=== PATIENT | male | born 1930 | race African-American/Black ===

== ENCOUNTER 2016-07-30 18:10 | Emergency (ER) | payer MEDICARE, OTHER ==
[~2016-07-30] VITALS: Ht 162.6 cm; Wt 60.0 kg
[~2016-07-30 18:10] MED LIST: ALFU10TA30 PO; AMLO-511 PO; ATOR10TA84 PO; FLUT16H NASAL; GABA-531 PO; MEMA10TA11 PO; MULT-1192 PO; PREG25 PO; SITA25 PO; TELM40 PO
[2016-07-30 18:26] LABS: GLUCOSE,POINT OF CARE 112 MG/DL (70-110)
[2016-07-30] MEDS ORDERED: AmLODIPine BESYLATE 5 MG TABLET PO ONE (19:15)
[2016-07-30 19:26] LABS: ANION GAP 8 mmol/L (8-16); CALCIUM, TOTAL 9.1 mg/dL (8.8-10.5); CARBON DIOXIDE 29 mmol/L (22-29); CHLORIDE 104 mmol/L (98-107); CREATININE 1.04 mg/dL (0.60-1.30); GLOMERULAR FILTR. RATE CALC > 60 mL/min (>60); POTASSIUM 3.8 mmol/L (3.5-5.1); SODIUM SERUM 141 mmol/L (136-145); UREA NITROGEN, BLOOD 14 mg/dL (7-18)
[2016-07-30 19:39] LABS: BASOPHILS # (AUTO) 0.01 K/uL (0.00-0.20); BASOPHILS % (AUTO) 0.2 % (0.0-2.0); EOSINOPHILS # (AUTO) 0.07 K/uL (0.00-0.70); EOSINOPHILS % (AUTO) 1.24 % (1.0-6.0); HEMATOCRIT 29.9 % (41-53); HEMOGLOBIN 9.9 g/dL (13.5-17.5); LYMPHOCYTES # (AUTO) 1.3 K/uL (1.0-4.8); LYMPHOCYTES % (AUTO) 23.1 % (22.0-44.0); MEAN CORPUSCULAR HEMOGLOBIN 25.3 pg (26.0-34.0); MEAN CORPUSCULAR HGB CONC 33.2 G/dL (31.0-37.0); MEAN CORPUSCULAR VOLUME 76 fL (80-100); MONOCYTES # (AUTO) 0.5 K/uL (0.1-1.0); MONOCYTES % (AUTO) 8.5 % (2.0-9.0); NEUTROPHILS # (AUTO) 3.7 K/uL (1.8-7.7); PLATELET COUNT (AUTO) 190 K/uL (150-450); RED BLOOD CELL COUNT(AUTO) 3.93 MIL/uL (4.50-5.90); RED CELL DISTRIBUTION WIDTH 14.8 % (11.5-14.5); WHITE BLOOD COUNT (AUTO) 5.6 K/uL (4.5-11.0)
[2016-07-30 20:17] VITALS: BP 178/94
== END 2016-07-30 20:38 | disposition home or self-care (01) ==
LOC: EMS 18:11
DX: I10 Essential (primary) hypertension (principal); E11.9 Type 2 diabetes mellitus without complications; D64.9 Anemia, unspecified
CPT/HCPCS: 82962; 93005; 99285

== ENCOUNTER 2018-01-06 09:49 | Inpatient (IN) | payer MEDICARE, OTHER ==
[~2018-01-06] VITALS: Ht 167.6 cm; Wt 66.0 kg
[2018-01-06] MEDS ORDERED: DONE10TA8 PO (09:56)
[2018-01-06] MEDS ORDERED: BACL10TA PO (09:56)
[2018-01-06] MEDS ORDERED: ATOR10TA84 PO (09:56)
[2018-01-06] MEDS ORDERED: FINA5TAB41 PO (09:56)
[2018-01-06] MEDS ORDERED: TELM40 PO (09:56)
[2018-01-06] MEDS ORDERED: DOCU250C91 PO (09:56)
[2018-01-06] MEDS ORDERED: PANTOPRAZOLE SODIUM 40 MG/VIAL IVP ONE ×2 (10:15→11:15)
[2018-01-06] MEDS ORDERED: PANTOPRAZOLE SODIUM 80 MG in SODIUM CHLORIDE 0.9% 100 ML IV SCH ×2 (10:15→11:15)
[2018-01-06] MEDS ORDERED: INSULIN REGULAR, HUMAN 100 UNITS/ML IVP ONE (10:30)
[2018-01-06 10:37] LABS: EOSINOPHILS % (AUTO) 0 % (1.0-6.0); HEMATOCRIT 30.2 % (41-53); HEMOGLOBIN 9.8 g/dL (13.5-17.5); LYMPHOCYTES # (AUTO) 0.2 K/uL (1.0-4.8); LYMPHOCYTES % (AUTO) 3.1 % (22.0-44.0); MEAN CORPUSCULAR HEMOGLOBIN 24.8 pg (26.0-34.0); MEAN CORPUSCULAR HGB CONC 32.6 G/dL (31.0-37.0); MEAN CORPUSCULAR VOLUME 76 fL (80-100); MONOCYTES # (AUTO) 0.2 K/uL (0.1-1.0); MONOCYTES % (AUTO) 2.3 % (2.0-9.0); NEUTROPHILS # (AUTO) 7.4 K/uL (1.8-7.7); PLATELET COUNT (AUTO) 180 K/uL (150-450); RED BLOOD CELL COUNT(AUTO) 3.96 MIL/uL (4.50-5.90); RED CELL DISTRIBUTION WIDTH 13.7 % (11.5-14.5)
[2018-01-06 10:38] LABS: NEUTROPHILS % (AUTO) 94.6 % (40.0-70.0)
[2018-01-06 10:47] LABS: INR 1.1 (0.9-1.1)
[2018-01-06 10:51] LABS: ANION GAP 12 mmol/L (8-16); CALCIUM, TOTAL 9.3 mg/dL (8.8-10.5); CARBON DIOXIDE 24 mmol/L (22-29); CHLORIDE 109 mmol/L (98-107); GLOMERULAR FILTR. RATE CALC 58 mL/min (>60); GLUCOSE,RANDOM 356 mg/dL (70-110); POTASSIUM 4.3 mmol/L (3.5-5.1); SODIUM SERUM 145 mmol/L (136-145); UREA NITROGEN, BLOOD 33 mg/dL (7-18)
[2018-01-06 10:56] LABS: ALANINE AMINOTRANSFERASE 21 U/L (12-78); ALBUMIN 3.2 g/dL (3.4-5.0); ALKALINE PHOSPHATASE 80 U/L (46-116); ASPARTATE AMINOTRANSFERASE 13 U/L (15-37); BILIRUBIN,TOTAL 0.5 mg/dL (0.1-1.0); LIPASE 319 U/L (73-393); TOTAL PROTEIN, SERUM 6.3 g/dL (6.4-8.2)
[2018-01-06] MEDS ORDERED: DEXTROSE 5%-0.45% SODIUM CHL 1,000 ML IV PRN (11:15)
[2018-01-06] MEDS ORDERED: ONDANSETRON HCL 4 MG/2 ML VIAL IVP PRN ×2 (11:15)
[2018-01-06] MEDS ORDERED: BISACODYL 10 MG RECTAL RECTAL SUPPOSITORY PR PRN (11:15)
[2018-01-06] MEDS ORDERED: ACETAMINOPHEN 325 MG TABLET PO PRN (11:15)
[2018-01-06] MEDS ORDERED: IPRATROPIUM BROMIDE 0.5 MG/2.5 ML NEB SOLUTION NEB PRN (11:15)
[2018-01-06] MEDS ORDERED: CloNIDine HCL 0.1 MG TABLET PO PRN (11:15)
[2018-01-06] MEDS ORDERED: 0.9% SODIUM CHLORIDE 10 ML SYRINGE IVP PRN (11:15)
[2018-01-06] MEDS ORDERED: ALBUTEROL SULFATE 2.5 MG/0.5 ML NEB SOLUTION NEB PRN (11:15)
[2018-01-06] MEDS ORDERED: SODIUM CHLORIDE 0.45% 1,000 ML IV ONE (11:30)
[2018-01-06 13:49] VITALS: BP 146/81
[2018-01-06] MEDS ORDERED: CALC-1220 PO (14:20)
[2018-01-06] MEDS ORDERED: DEXTROSE 50%-WATER 25 GM/50 ML SYRINGE IVP PRN (14:45)
[2018-01-06 16:30] VITALS: BP 154/84
[2018-01-06 19:19] VITALS: BP 114/73
[2018-01-06] MEDS: PANTOPRAZOLE SODIUM 80 MG in SODIUM CHLORIDE 0.9% 100 ML IV SCH (20:35)
[2018-01-06 20:56] LABS: APPEARANCE,URINE CLEAR (CLEAR); BILIRUBIN,URINE NEGATIVE (NEGATIVE); GLUCOSE, URINE (UA) >=1000 mg/dL (NEGATIVE); KETONES,URINE NEGATIVE (NEGATIVE); LEUKOCYTE ESTERASE ,URINE NEGATIVE (NEGATIVE); NITRATE,URINE NEGATIVE (NEGATIVE); OCCULT BLOOD,URINE NEGATIVE (NEGATIVE); PROTEIN,URINE NEGATIVE (NEGATIVE); UROBILINOGEN,URINE 0.2 mg/dL (<=1.0)
[2018-01-06 21:29] LABS: BACTERIA,URINE None Seen /HPF (None Seen); RBC,URINE 0-2 /HPF (0-2); SQUAMOUS EPITHELIAL CELL,UR Few /LPF (None Seen); WBC,URINE None Seen /HPF (0-5)
[2018-01-06 23:18] VITALS: BP 131/67
[2018-01-07 00:49] LABS: GLUCOMETER DEV NAME(LOC) 5S 1M; GLUCOSE,POINT OF CARE 229 MG/DL (70-110)
[2018-01-07 00:49] LABS: GLUCOMETER DEV NAME(LOC) 5S 2Q; GLUCOSE,POINT OF CARE 217 MG/DL (70-110)
[2018-01-07 04:14] VITALS: BP 143/82
[2018-01-07] MEDS: PANTOPRAZOLE SODIUM 80 MG in SODIUM CHLORIDE 0.9% 100 ML IV SCH (06:04)
[2018-01-07 06:16] LABS: BASOPHILS % (AUTO) 0.3 % (0.0-2.0); EOSINOPHILS % (AUTO) 0 % (1.0-6.0); HEMATOCRIT 27.1 % (41-53); LYMPHOCYTES # (AUTO) 1.3 K/uL (1.0-4.8); LYMPHOCYTES % (AUTO) 15.6 % (22.0-44.0); MEAN CORPUSCULAR HEMOGLOBIN 25.1 pg (26.0-34.0); MEAN CORPUSCULAR HGB CONC 33.1 G/dL (31.0-37.0); MEAN CORPUSCULAR VOLUME 76 fL (80-100); MONOCYTES # (AUTO) 0.7 K/uL (0.1-1.0); MONOCYTES % (AUTO) 8.4 % (2.0-9.0); NEUTROPHILS # (AUTO) 6.3 K/uL (1.8-7.7); NEUTROPHILS % (AUTO) 75.7 % (40.0-70.0); PLATELET COUNT (AUTO) 195 K/uL (150-450); RED BLOOD CELL COUNT(AUTO) 3.57 MIL/uL (4.50-5.90); RED CELL DISTRIBUTION WIDTH 13.7 % (11.5-14.5)
[2018-01-07 07:06] LABS: CHOL/HDL RATIO 2.2 (4.2-7.3); FREE T4 (FREE THYROXINE) 0.8 ng/dL (0.76-1.46); MAGNESIUM 1.8 mg/dL (1.80-2.40); THYROID STIMULATING HORMONE 0.6 uIU/mL (0.36-3.74)
[2018-01-07 07:07] VITALS: BP 119/69
[2018-01-07] MEDS ORDERED: SODIUM CHLORIDE 0.9% 1,000 ML IV ONE (08:21)
[2018-01-07 09:09] LABS: FOLATE SERUM 15.6 ng/mL (5.4-)
[2018-01-07] MEDS: TELMISARTAN 40 MG TABLET PO SCH (09:35)
[2018-01-07] MEDS: AmLODIPine BESYLATE 5 MG TABLET PO SCH (09:42)
[2018-01-07] MEDS: ALFUZOSIN HCL 10 MG ER TABLET PO SCH (09:42)
[2018-01-07] MEDS: FINASTERIDE 5 MG TABLET PO SCH (09:42)
[2018-01-07] MEDS: GABAPENTIN 300 MG CAPSULE PO SCH (09:42)
[2018-01-07] MEDS: DONEPEZIL HCL 10 MG TABLET PO SCH (09:42)
[2018-01-07 11:09] VITALS: BP 126/72
[2018-01-07] MEDS: INSULIN LISPRO 100 UNITS/ML SQ PRN ×3 (11:45→20:37)
[2018-01-07] MEDS ORDERED: LIDOCAINE HCL/PF 2% 5 ML VIAL INJ ONE (12:00)
[2018-01-07] MEDS ORDERED: PROPOFOL 1% 20 ML VIAL IVP ONE (12:00)
[2018-01-07 15:32] VITALS: BP 129/68
[2018-01-07 19:28] VITALS: BP 121/68
[2018-01-07] MEDS: PANTOPRAZOLE SODIUM 40 MG DR TABLET PO SCH (19:38)
[2018-01-07 20:24] LABS: GLUCOMETER DEV NAME(LOC) 5S 2Q; GLUCOSE,POINT OF CARE 203 MG/DL (70-110)
[2018-01-07 20:24] LABS: GLUCOMETER DEV NAME(LOC) 5S 2Q; GLUCOSE,POINT OF CARE 175 MG/DL (70-110)
[2018-01-07 21:49] LABS: GLUCOMETER DEV NAME(LOC) 5N 1P; GLUCOSE,POINT OF CARE 276 MG/DL (70-110)
[2018-01-07 21:49] LABS: GLUCOMETER DEV NAME(LOC) 5N 1P; GLUCOSE,POINT OF CARE 220 MG/DL (70-110)
[2018-01-08] VITALS (7 sets, daily range): BP systolic 101–121; BP diastolic 52–71
[2018-01-08 06:15] LABS: BASOPHILS % (AUTO) 0.4 % (0.0-2.0); EOSINOPHILS % (AUTO) 0.3 % (1.0-6.0); HEMATOCRIT 25.4 % (41-53); HEMOGLOBIN 8.4 g/dL (13.5-17.5); LYMPHOCYTES # (AUTO) 1.5 K/uL (1.0-4.8); LYMPHOCYTES % (AUTO) 19.3 % (22.0-44.0); MEAN CORPUSCULAR HGB CONC 32.9 G/dL (31.0-37.0); MEAN CORPUSCULAR VOLUME 76 fL (80-100); MONOCYTES # (AUTO) 0.6 K/uL (0.1-1.0); MONOCYTES % (AUTO) 7.7 % (2.0-9.0); NEUTROPHILS # (AUTO) 5.5 K/uL (1.8-7.7); NEUTROPHILS % (AUTO) 72.3 % (40.0-70.0); PLATELET COUNT (AUTO) 169 K/uL (150-450); RED BLOOD CELL COUNT(AUTO) 3.35 MIL/uL (4.50-5.90)
[2018-01-08 06:23] LABS: ANION GAP 5 mmol/L (8-16); CALCIUM, TOTAL 8.4 mg/dL (8.8-10.5); CARBON DIOXIDE 29 mmol/L (22-29); CHLORIDE 110 mmol/L (98-107); CREATININE 1.08 mg/dL (0.60-1.30); GLOMERULAR FILTR. RATE CALC > 60 mL/min (>60); GLUCOSE,RANDOM 131 mg/dL (70-110); POTASSIUM 3.4 mmol/L (3.5-5.1); SODIUM SERUM 144 mmol/L (136-145); UREA NITROGEN, BLOOD 14 mg/dL (7-18)
[2018-01-08] MEDS: GABAPENTIN 300 MG CAPSULE PO SCH (08:18)
[2018-01-08] MEDS: AmLODIPine BESYLATE 5 MG TABLET PO SCH (08:18)
[2018-01-08] MEDS: DONEPEZIL HCL 10 MG TABLET PO SCH (08:18)
[2018-01-08] MEDS: FINASTERIDE 5 MG TABLET PO SCH (08:18)
[2018-01-08] MEDS: PANTOPRAZOLE SODIUM 40 MG DR TABLET PO SCH ×2 (08:18→20:42)
[2018-01-08] MEDS: TELMISARTAN 40 MG TABLET PO SCH (08:18)
[2018-01-08] MEDS: ALFUZOSIN HCL 10 MG ER TABLET PO SCH (08:18)
[2018-01-08] MEDS ORDERED: POTASSIUM CHLORIDE 20 MEQ ER TABLET PO PRN (09:30)
[2018-01-08] MEDS ORDERED: MAGNESIUM SULFATE 2 GM/WATER 50 ML IV PRN (09:30)
[2018-01-08] MEDS ORDERED: POTASSIUM CHL 10 MEQ/WATER 50 ML IV PRN (09:30)
[2018-01-08] MEDS ORDERED: MAGNESIUM OXIDE 400 MG TABLET PO PRN (09:30)
[2018-01-08] MEDS ORDERED: MAGNESIUM SULFATE 4 GM/WATER 100 ML IV PRN (09:30)
[2018-01-08 10:02] LABS: ALBUMIN 2.9 g/dL (3.4-5.0)
[2018-01-08] MEDS: INSULIN LISPRO 100 UNITS/ML SQ PRN ×2 (11:50→20:46)
[2018-01-08] MEDS: SOD FERRIC GLUC COMPLX/SUCROSE 125 MG in SODIUM CHLORIDE 0.9% 100 ML IV SCH (14:27)
[2018-01-08] MEDS: MAGNESIUM HYDROXIDE SUSPENSION 30 ML UDCUP PO PRN (14:31)
[2018-01-09] VITALS (14 sets, daily range): BP systolic 91–129; BP diastolic 50–80
[2018-01-09 07:12] LABS: BASOPHILS % (AUTO) 0.5 % (0.0-2.0); EOSINOPHILS % (AUTO) 0.8 % (1.0-6.0); LYMPHOCYTES % (AUTO) 16.4 % (22.0-44.0); MEAN CORPUSCULAR HEMOGLOBIN 25.3 pg (26.0-34.0); MEAN CORPUSCULAR HGB CONC 33.4 G/dL (31.0-37.0); MEAN CORPUSCULAR VOLUME 76 fL (80-100); MONOCYTES # (AUTO) 0.5 K/uL (0.1-1.0); MONOCYTES % (AUTO) 8.1 % (2.0-9.0); NEUTROPHILS # (AUTO) 4.6 K/uL (1.8-7.7); NEUTROPHILS % (AUTO) 74.2 % (40.0-70.0); PLATELET COUNT (AUTO) 151 K/uL (150-450); RED BLOOD CELL COUNT(AUTO) 3.17 MIL/uL (4.50-5.90); RED CELL DISTRIBUTION WIDTH 13.9 % (11.5-14.5)
[2018-01-09 07:23] LABS: GLUCOMETER DEV NAME(LOC) 5S 1M; GLUCOSE,POINT OF CARE 140 MG/DL (70-110)
[2018-01-09 08:19] LABS: ANION GAP 6 mmol/L (8-16); CALCIUM, TOTAL 8.5 mg/dL (8.8-10.5); CARBON DIOXIDE 29 mmol/L (22-29); CHLORIDE 106 mmol/L (98-107); CREATININE 1.04 mg/dL (0.60-1.30); GLOMERULAR FILTR. RATE CALC > 60 mL/min (>60); GLUCOSE,RANDOM 145 mg/dL (70-110); POTASSIUM 3.9 mmol/L (3.5-5.1); SODIUM SERUM 141 mmol/L (136-145); UREA NITROGEN, BLOOD 13 mg/dL (7-18)
[2018-01-09] MEDS: DONEPEZIL HCL 10 MG TABLET PO SCH (08:32)
[2018-01-09] MEDS: PANTOPRAZOLE SODIUM 40 MG DR TABLET PO SCH ×2 (08:33→20:17)
[2018-01-09] MEDS: FINASTERIDE 5 MG TABLET PO SCH (08:33)
[2018-01-09] MEDS: GABAPENTIN 300 MG CAPSULE PO SCH (08:33)
[2018-01-09] MEDS: ALFUZOSIN HCL 10 MG ER TABLET PO SCH (08:33)
[2018-01-09] MEDS: AmLODIPine BESYLATE 5 MG TABLET PO SCH (08:33)
[2018-01-09] MEDS: TELMISARTAN 40 MG TABLET PO SCH (08:36)
[2018-01-09] MEDS: INSULIN LISPRO 100 UNITS/ML SQ PRN ×3 (11:52→20:21)
[2018-01-09] MEDS: SOD FERRIC GLUC COMPLX/SUCROSE 125 MG in SODIUM CHLORIDE 0.9% 100 ML IV SCH (13:30)
[2018-01-09] MEDS: MAGNESIUM HYDROXIDE SUSPENSION 30 ML UDCUP PO PRN (14:52)
[2018-01-09] MEDS ORDERED: DOCU250C91 PO (15:02)
[2018-01-09] MEDS ORDERED: BACL10TA PO (15:02)
[2018-01-09] MEDS ORDERED: DONE10TA8 PO (15:03)
[2018-01-09] MEDS ORDERED: GABA-531 PO (15:04)
[2018-01-09] MEDS ORDERED: PANT40TA25 PO (15:05)
[2018-01-09] MEDS ORDERED: AUD NEB (15:06)
[2018-01-09] MEDS ORDERED: BISA10S PR (15:08)
[2018-01-09] MEDS ORDERED: CLON-570 PO (15:08)
[2018-01-09 15:09] LABS: GLUCOMETER DEV NAME(LOC) 5S 2Q; GLUCOSE,POINT OF CARE 185 MG/DL (70-110)
[2018-01-09 15:09] LABS: GLUCOMETER DEV NAME(LOC) 5S 2Q; GLUCOSE,POINT OF CARE 140 MG/DL (70-110)
[2018-01-09 15:09] LABS: GLUCOMETER DEV NAME(LOC) 5S 2Q; GLUCOSE,POINT OF CARE 173 MG/DL (70-110)
[2018-01-09 15:09] LABS: GLUCOMETER DEV NAME(LOC) 5S 2Q; GLUCOSE,POINT OF CARE 188 MG/DL (70-110)
[2018-01-09] MEDS ORDERED: INSU100V SQ (15:09)
[2018-01-09] MEDS ORDERED: IPRNEB IH (15:10)
[2018-01-09] MEDS ORDERED: SODIUM CHLORIDE 0.9% 500 ML IV ONE (16:14)
[2018-01-10 05:00] VITALS: BP 114/60
[2018-01-10 05:42] LABS: BASOPHILS % (AUTO) 0.4 % (0.0-2.0); EOSINOPHILS % (AUTO) 1.2 % (1.0-6.0); HEMATOCRIT 26.9 % (41-53); HEMOGLOBIN 9.1 g/dL (13.5-17.5); LYMPHOCYTES # (AUTO) 1.3 K/uL (1.0-4.8); LYMPHOCYTES % (AUTO) 19.4 % (22.0-44.0); MEAN CORPUSCULAR HEMOGLOBIN 25.3 pg (26.0-34.0); MEAN CORPUSCULAR HGB CONC 33.8 G/dL (31.0-37.0); MEAN CORPUSCULAR VOLUME 75 fL (80-100); MONOCYTES # (AUTO) 0.5 K/uL (0.1-1.0); MONOCYTES % (AUTO) 8.2 % (2.0-9.0); NEUTROPHILS # (AUTO) 4.7 K/uL (1.8-7.7); NEUTROPHILS % (AUTO) 70.8 % (40.0-70.0); PLATELET COUNT (AUTO) 153 K/uL (150-450); RED CELL DISTRIBUTION WIDTH 13.8 % (11.5-14.5)
[2018-01-10 06:11] LABS: ANION GAP 4 mmol/L (8-16); CALCIUM, TOTAL 8.2 mg/dL (8.8-10.5); CARBON DIOXIDE 28 mmol/L (22-29); CHLORIDE 106 mmol/L (98-107); CREATININE 1.04 mg/dL (0.60-1.30); GLUCOSE,RANDOM 109 mg/dL (70-110); POTASSIUM 3.9 mmol/L (3.5-5.1); SODIUM SERUM 138 mmol/L (136-145); UREA NITROGEN, BLOOD 15 mg/dL (7-18)
[2018-01-10 06:29] LABS: GLOMERULAR FILTR. RATE CALC > 60 mL/min (>60)
[2018-01-10 08:00] VITALS: BP 120/73
[2018-01-10] MEDS: GABAPENTIN 300 MG CAPSULE PO SCH (08:33)
[2018-01-10] MEDS: PANTOPRAZOLE SODIUM 40 MG DR TABLET PO SCH (08:33)
[2018-01-10] MEDS: DONEPEZIL HCL 10 MG TABLET PO SCH (08:33)
[2018-01-10] MEDS: AmLODIPine BESYLATE 5 MG TABLET PO SCH (08:33)
[2018-01-10] MEDS: ALFUZOSIN HCL 10 MG ER TABLET PO SCH (08:33)
[2018-01-10] MEDS: FINASTERIDE 5 MG TABLET PO SCH (08:33)
[2018-01-10] MEDS: TELMISARTAN 40 MG TABLET PO SCH (08:35)
[2018-01-10 10:28] LABS: GLUCOMETER DEV NAME(LOC) 5S 2Q; GLUCOSE,POINT OF CARE 173 MG/DL (70-110)
[2018-01-10 11:30] VITALS: BP 117/60
[2018-01-10] MEDS: INSULIN LISPRO 100 UNITS/ML SQ PRN (11:32)
[2018-01-10 20:14] LABS: GLUCOMETER DEV NAME(LOC) 5S 1M; GLUCOSE,POINT OF CARE 152 MG/DL (70-110)
[2018-01-11 02:23] LABS: GLUCOMETER DEV NAME(LOC) 5N 1P; GLUCOSE,POINT OF CARE 115 MG/DL (70-110)
[2018-01-11 02:23] LABS: GLUCOMETER DEV NAME(LOC) 5N 1P; GLUCOSE,POINT OF CARE 215 MG/DL (70-110)
[2018-01-11 21:54] LABS: GLUCOMETER DEV NAME(LOC) 5N 2S; GLUCOSE,POINT OF CARE 139 MG/DL (70-110)
== END 2018-01-10 13:20 | DRG 682 ==
LOC: EMS 09:52 → 5S 11:56
PROVIDERS: ADMIT Internal Medicine Geriatric Medicine; ATTEND Internal Medicine Geriatric Medicine
PROC: 0DJ08ZZ Inspection of Upper Intestinal Tract, Via Natural or Artificial Opening Endoscopic (ICD-10-PCS; principal; 2018-01-07 09:00)
PROC: 30233N1 Transfusion of Nonautologous Red Blood Cells into Peripheral Vein, Percutaneous Approach (ICD-10-PCS; 2018-01-09)
DX: N17.9 Acute kidney failure, unspecified (principal); K22.11 Ulcer of esophagus with bleeding; D50.0 Iron deficiency anemia secondary to blood loss (chronic); E86.0 Dehydration; K44.9 Diaphragmatic hernia without obstruction or gangrene; R13.10 Dysphagia, unspecified; E11.65 Type 2 diabetes mellitus with hyperglycemia; E78.5 Hyperlipidemia, unspecified; G30.9 Alzheimer's disease, unspecified; F02.80 Dementia in other diseases classified elsewhere, unspecified severity, without behavioral disturbance, psychotic disturbance, mood disturbance, and anxiety; I10 Essential (primary) hypertension; K57.30 Diverticulosis of large intestine without perforation or abscess without bleeding; M19.90 Unspecified osteoarthritis, unspecified site; N40.0 Benign prostatic hyperplasia without lower urinary tract symptoms; Z79.82 Long term (current) use of aspirin; Z85.46 Personal history of malignant neoplasm of prostate; Z86.73 Personal history of transient ischemic attack (TIA), and cerebral infarction without residual deficits
CPT/HCPCS: 70450; 74176; 80074; 82306; 82607; 82746; 83036; 83735; 84132; 84439; 84443; 86850; 86900; 86901; 86920; 93005; 93306; 93880; 96365; 96375; 97116; 97162; 97530; 99291; C9113; G0480; J1815; J2704; J2916; J3490; J7030; J7040; J7050; P9016

== ENCOUNTER 2018-02-13 04:37 | Inpatient (IN) | payer MEDICARE, OTHER ==
[~2018-02-13] VITALS: Ht 167.6 cm; Wt 61.5 kg
[~2018-02-13 04:37] MED LIST changes: -ATOR10TA84 PO; +AUD NEB; +BACL10TA PO; +BISA10S PR; +CALC-1220 PO; +CLON-570 PO; +DOCU250C91 PO; +DONE10TA8 PO; +FINA5TAB41 PO; -FLUT16H NASAL; +INSU100V SQ; +IPRNEB IH; -MEMA10TA11 PO; -MULT-1192 PO; +PANT40TA25 PO; -PREG25 PO; -SITA25 PO
[2018-02-13] MEDS ORDERED: MIRT15 PO (04:55)
[2018-02-13] MEDS ORDERED: METO5TAB95 PO (04:55)
[2018-02-13] MEDS ORDERED: BENZ-51 PO (04:55)
[2018-02-13] MEDS ORDERED: SUCR1ORA5 PO (04:55)
[2018-02-13] MEDS ORDERED: ATOR10TA84 PO (04:55)
[2018-02-13] MEDS ORDERED: PIOG15TA6 PO (04:55)
[2018-02-13] MEDS ORDERED: CARB-101 PO (04:55)
[2018-02-13] MEDS ORDERED: PANTOPRAZOLE SODIUM 40 MG/VIAL IVP ONE (05:00)
[2018-02-13 05:16] LABS: ANION GAP 6 mmol/L (8-16); CALCIUM, TOTAL 9.4 mg/dL (8.8-10.5); CARBON DIOXIDE 30 mmol/L (22-29); CHLORIDE 107 mmol/L (98-107); CREATININE 1.12 mg/dL (0.60-1.30); GLUCOSE,RANDOM 176 mg/dL (70-110); POTASSIUM 4.1 mmol/L (3.5-5.1); SODIUM SERUM 143 mmol/L (136-145); UREA NITROGEN, BLOOD 22 mg/dL (7-18)
[2018-02-13 05:17] LABS: GLOMERULAR FILTR. RATE CALC > 60 mL/min (>60)
[2018-02-13 05:22] LABS: ALANINE AMINOTRANSFERASE 14 U/L (12-78); ALBUMIN 2.6 g/dL (3.4-5.0); ALKALINE PHOSPHATASE 74 U/L (46-116); ASPARTATE AMINOTRANSFERASE 14 U/L (15-37); BILIRUBIN,TOTAL 0.2 mg/dL (0.1-1.0); LIPASE 277 U/L (73-393); TOTAL PROTEIN, SERUM 6.4 g/dL (6.4-8.2)
[2018-02-13 05:23] LABS: BASOPHILS % (AUTO) 0.3 % (0.0-2.0); EOSINOPHILS % (AUTO) 0.3 % (1.0-6.0); HEMATOCRIT 24.4 % (41-53); HEMOGLOBIN 7.9 g/dL (13.5-17.5); LYMPHOCYTES # (AUTO) 1.3 K/uL (1.0-4.8); MEAN CORPUSCULAR HEMOGLOBIN 24.7 pg (26.0-34.0); MEAN CORPUSCULAR HGB CONC 32.3 G/dL (31.0-37.0); MEAN CORPUSCULAR VOLUME 77 fL (80-100); MONOCYTES # (AUTO) 0.6 K/uL (0.1-1.0); MONOCYTES % (AUTO) 8.2 % (2.0-9.0); NEUTROPHILS # (AUTO) 5.6 K/uL (1.8-7.7); NEUTROPHILS % (AUTO) 74.2 % (40.0-70.0); PLATELET COUNT (AUTO) 286 K/uL (150-450); RED BLOOD CELL COUNT(AUTO) 3.19 MIL/uL (4.50-5.90); RED CELL DISTRIBUTION WIDTH 15.7 % (11.5-14.5)
[2018-02-13 05:45] LABS: B-TYPE NATRIURETIC PEPTIDE 24 pg/mL (0-100)
[2018-02-13] MEDS ORDERED: ONDANSETRON HCL 4 MG/2 ML VIAL IVP ONE (06:15)
[2018-02-13 08:08] LABS: PROTHROMBIN TIME 10.7 SEC (9.4-11.6)
[2018-02-13 09:00] VITALS: BP 115/63
[2018-02-13] MEDS ORDERED: 0.9% SODIUM CHLORIDE 10 ML SYRINGE IVP PRN (09:00)
[2018-02-13] MEDS ORDERED: PANTOPRAZOLE SODIUM 40 MG DR TABLET PO SCH (09:00)
[2018-02-13] MEDS ORDERED: ALBUTEROL SULFATE 2.5 MG/0.5 ML NEB SOLUTION NEB PRN ×2 (09:00)
[2018-02-13] MEDS ORDERED: IPRATROPIUM BROMIDE 0.5 MG/2.5 ML NEB SOLUTION NEB PRN (09:00)
[2018-02-13] MEDS ORDERED: ONDANSETRON HCL 4 MG/2 ML VIAL IVP PRN (09:00)
[2018-02-13] MEDS ORDERED: HYDROCODONE/ACETAMINOPHEN 5-325 MG TABLET PO PRN (09:00)
[2018-02-13] MEDS: SUCRALFATE 1 GM/10 ML SUSPENSION UDCUP PO SCH ×4 (10:23→21:14)
[2018-02-13] MEDS: DOCUSATE SODIUM 250 MG CAPSULE PO SCH ×3 (10:24→21:00)
[2018-02-13] MEDS: BENZONATATE 100 MG CAPSULE PO SCH ×2 (10:24→18:14)
[2018-02-13] MEDS: CARBIDOPA/LEVODOPA 25-100 MG TABLET PO SCH (10:24)
[2018-02-13] MEDS: ALFUZOSIN HCL 10 MG ER TABLET PO SCH (10:24)
[2018-02-13] MEDS: PIOGLITAZONE HCL 15 MG TABLET PO SCH (10:24)
[2018-02-13] MEDS: CALCIUM OYSTER SHELL 250 MG-VIT D3 125 UNITS TABLET PO SCH (10:24)
[2018-02-13] MEDS: MIRTAZAPINE 15 MG TABLET PO SCH (10:25)
[2018-02-13] MEDS: PANTOPRAZOLE SODIUM 40 MG DR TABLET PO SCH (10:25)
[2018-02-13] MEDS: METOCLOPRAMIDE HCL 5 MG TABLET PO SCH (10:25)
[2018-02-13 11:00] VITALS: BP 100/61
[2018-02-13] MEDS ORDERED: INSULIN LISPRO 100 UNITS/ML SQ PRN (13:00)
[2018-02-13] MEDS ORDERED: GLUCAGON,HUMAN RECOMBINANT 1 MG VIAL IM PRN (13:00)
[2018-02-13] MEDS ORDERED: DEXTROSE 50%-WATER 25 GM/50 ML SYG IVP PRN (13:15)
[2018-02-13] MEDS ORDERED: GADOBUTROL 1 MMOL/ML 10 ML VIAL IVP ONE (14:37)
[2018-02-13] MEDS: CefTRIAXone SODIUM 1 GM in DEXTROSE 5%-WATER 10 ML IV SCH (14:45)
[2018-02-13 15:51] VITALS: BP 111/60
[2018-02-13] MEDS ORDERED: LORazepam 2 MG/ML VIAL IVP ONE (17:30)
[2018-02-13 19:35] VITALS: BP 118/65
[2018-02-13] MEDS: ATORVASTATIN CALCIUM 20 MG TABLET PO SCH (21:00)
[2018-02-13] MEDS ORDERED: ATORVASTATIN CALCIUM 10 MG TABLET PO SCH (21:00)
[2018-02-13 23:43] VITALS: BP 96/50
[2018-02-14] VITALS (14 sets, daily range): BP systolic 100–129; BP diastolic 53–69
[2018-02-14 00:24] LABS: GLUCOMETER DEV NAME(LOC) 5S 1M; GLUCOSE,POINT OF CARE 163 MG/DL (70-110)
[2018-02-14 00:24] LABS: GLUCOMETER DEV NAME(LOC) 5S 1M; GLUCOSE,POINT OF CARE 143 MG/DL (70-110)
[2018-02-14] MEDS: BENZONATATE 100 MG CAPSULE PO SCH ×3 (01:00→15:59)
[2018-02-14] MEDS: PANTOPRAZOLE SODIUM 40 MG DR TABLET PO SCH ×2 (05:11→21:19)
[2018-02-14] MEDS: METOCLOPRAMIDE HCL 5 MG TABLET PO SCH (08:47)
[2018-02-14] MEDS: SUCRALFATE 1 GM/10 ML SUSPENSION UDCUP PO SCH ×4 (08:47→21:18)
[2018-02-14] MEDS: ALFUZOSIN HCL 10 MG ER TABLET PO SCH (08:47)
[2018-02-14] MEDS: CARBIDOPA/LEVODOPA 25-100 MG TABLET PO SCH (08:47)
[2018-02-14] MEDS ORDERED: SODIUM CHLORIDE 0.9% 0 ML IV ONE (09:03)
[2018-02-14 09:25] LABS: BASOPHILS % (AUTO) 0.7 % (0.0-2.0); EOSINOPHILS % (AUTO) 0.9 % (1.0-6.0); HEMATOCRIT 21.5 % (41-53); LYMPHOCYTES # (AUTO) 1.4 K/uL (1.0-4.8); LYMPHOCYTES % (AUTO) 17.7 % (22.0-44.0); MEAN CORPUSCULAR HGB CONC 32.5 G/dL (31.0-37.0); MEAN CORPUSCULAR VOLUME 77 fL (80-100); MONOCYTES # (AUTO) 0.5 K/uL (0.1-1.0); MONOCYTES % (AUTO) 6.7 % (2.0-9.0); NEUTROPHILS # (AUTO) 5.9 K/uL (1.8-7.7); PLATELET COUNT (AUTO) 266 K/uL (150-450); RED CELL DISTRIBUTION WIDTH 15.6 % (11.5-14.5)
[2018-02-14 09:38] LABS: PROTHROMBIN TIME 10.7 SEC (9.4-11.6)
[2018-02-14 09:39] LABS: HEMOGLOBIN A1C 7.9 % (4.5-6.2)
[2018-02-14 09:46] LABS: CHOL/HDL RATIO 2.5 (4.2-7.3); THYROID STIMULATING HORMONE 1.51 uIU/mL (0.36-3.74)
[2018-02-14] MEDS ORDERED: SODIUM CHLORIDE 0.9% 1,000 ML IV ONE ×3 (11:34→15:30)
[2018-02-14] MEDS ORDERED: FentaNYL CITRATE-PF 100 MCG/2 ML VIAL ONE (12:17)
[2018-02-14] MEDS ORDERED: MIDAZOLAM HCL 5 MG/ML VIAL ONE (12:17)
[2018-02-14] MEDS: DOCUSATE SODIUM 250 MG CAPSULE PO SCH ×3 (13:37→21:19)
[2018-02-14] MEDS: MIRTAZAPINE 15 MG TABLET PO SCH (13:38)
[2018-02-14] MEDS: CALCIUM OYSTER SHELL 250 MG-VIT D3 125 UNITS TABLET PO SCH (13:38)
[2018-02-14] MEDS: PIOGLITAZONE HCL 15 MG TABLET PO SCH (13:38)
[2018-02-14] MEDS: CefTRIAXone SODIUM 1 GM in DEXTROSE 5%-WATER 10 ML IV SCH (13:39)
[2018-02-14] MEDS ORDERED: FUROSEMIDE 20 MG/2 ML VIAL IVP ONE (18:30)
[2018-02-14] MEDS ORDERED: SODIUM CHLORIDE 0.9% 250 ML IV ONE (19:06)
[2018-02-14] MEDS: ACETAMINOPHEN 325 MG TABLET PO PRN (21:19)
[2018-02-14] MEDS: ATORVASTATIN CALCIUM 20 MG TABLET PO SCH (21:19)
[2018-02-14] MEDS: INSULIN LISPRO 100 UNITS/ML SQ PRN (21:20)
[2018-02-15] VITALS (9 sets, daily range): BP systolic 100–117; BP diastolic 57–96
[2018-02-15] MEDS: BENZONATATE 100 MG CAPSULE PO SCH ×3 (00:12→17:07)
[2018-02-15] MEDS: ACETAMINOPHEN 325 MG TABLET PO PRN (01:33)
[2018-02-15 03:11] LABS: GLUCOMETER DEV NAME(LOC) 5S 2Q; GLUCOSE,POINT OF CARE 127 MG/DL (70-110)
[2018-02-15 03:11] LABS: GLUCOMETER DEV NAME(LOC) 5S 2Q; GLUCOSE,POINT OF CARE 127 MG/DL (70-110)
[2018-02-15 03:11] LABS: GLUCOMETER DEV NAME(LOC) 5S 2Q; GLUCOSE,POINT OF CARE 145 MG/DL (70-110)
[2018-02-15 07:16] LABS: ALANINE AMINOTRANSFERASE 13 U/L (12-78); ALBUMIN 2.5 g/dL (3.4-5.0); ALKALINE PHOSPHATASE 70 U/L (46-116); ANION GAP 7 mmol/L (8-16); ASPARTATE AMINOTRANSFERASE 14 U/L (15-37); BILIRUBIN,TOTAL 1.1 mg/dL (0.1-1.0); CALCIUM, TOTAL 8.7 mg/dL (8.8-10.5); CARBON DIOXIDE 28 mmol/L (22-29); CHLORIDE 110 mmol/L (98-107); CREATININE 1.07 mg/dL (0.60-1.30); GLOMERULAR FILTR. RATE CALC > 60 mL/min (>60); GLUCOSE,RANDOM 105 mg/dL (70-110); POTASSIUM 3.3 mmol/L (3.5-5.1); SODIUM SERUM 145 mmol/L (136-145); TOTAL PROTEIN, SERUM 5.8 g/dL (6.4-8.2); UREA NITROGEN, BLOOD 15 mg/dL (7-18)
[2018-02-15] MEDS ORDERED: POTASSIUM CHLORIDE 20 MEQ ER TABLET PO PRN (08:45)
[2018-02-15] MEDS ORDERED: POTASSIUM CHL 10 MEQ/WATER 50 ML IV PRN (08:45)
[2018-02-15] MEDS: DOCUSATE SODIUM 250 MG CAPSULE PO SCH ×3 (08:47→21:58)
[2018-02-15] MEDS: METOCLOPRAMIDE HCL 5 MG TABLET PO SCH (08:47)
[2018-02-15] MEDS: SUCRALFATE 1 GM/10 ML SUSPENSION UDCUP PO SCH ×4 (08:47→21:58)
[2018-02-15] MEDS: ALFUZOSIN HCL 10 MG ER TABLET PO SCH (08:47)
[2018-02-15] MEDS: PIOGLITAZONE HCL 15 MG TABLET PO SCH (08:48)
[2018-02-15] MEDS: PANTOPRAZOLE SODIUM 40 MG DR TABLET PO SCH ×2 (08:48→21:58)
[2018-02-15] MEDS: CALCIUM OYSTER SHELL 250 MG-VIT D3 125 UNITS TABLET PO SCH (08:48)
[2018-02-15] MEDS: CARBIDOPA/LEVODOPA 25-100 MG TABLET PO SCH (08:48)
[2018-02-15] MEDS: MIRTAZAPINE 15 MG TABLET PO SCH (08:49)
[2018-02-15 09:28] LABS: BASOPHILS % (AUTO) 0.3 % (0.0-2.0); EOSINOPHILS % (AUTO) 2.1 % (1.0-6.0); HEMATOCRIT 27.9 % (41-53); HEMOGLOBIN 9.4 g/dL (13.5-17.5); LYMPHOCYTES # (AUTO) 1.2 K/uL (1.0-4.8); LYMPHOCYTES % (AUTO) 16.9 % (22.0-44.0); MEAN CORPUSCULAR HEMOGLOBIN 27.7 pg (26.0-34.0); MEAN CORPUSCULAR HGB CONC 33.7 G/dL (31.0-37.0); MEAN CORPUSCULAR VOLUME 82 fL (80-100); MONOCYTES # (AUTO) 0.6 K/uL (0.1-1.0); MONOCYTES % (AUTO) 8.3 % (2.0-9.0); NEUTROPHILS # (AUTO) 5.2 K/uL (1.8-7.7); NEUTROPHILS % (AUTO) 72.4 % (40.0-70.0); PLATELET COUNT (AUTO) 241 K/uL (150-450)
[2018-02-15 11:40] LABS: GLUCOMETER DEV NAME(LOC) 5S 1M; GLUCOSE,POINT OF CARE 101 MG/DL (70-110)
[2018-02-15] MEDS: INSULIN LISPRO 100 UNITS/ML SQ PRN (12:28)
[2018-02-15] MEDS: CefTRIAXone SODIUM 1 GM in DEXTROSE 5%-WATER 10 ML IV SCH (12:30)
[2018-02-15 14:53] LABS: GLUCOMETER DEV NAME(LOC) 5S 1M; GLUCOSE,POINT OF CARE 164 MG/DL (70-110)
[2018-02-15] MEDS: ATORVASTATIN CALCIUM 20 MG TABLET PO SCH (21:58)
[2018-02-16 00:13] VITALS: BP 113/57
[2018-02-16] MEDS: BENZONATATE 100 MG CAPSULE PO SCH ×2 (00:47→08:49)
[2018-02-16 03:51] VITALS: BP 124/56
[2018-02-16 07:04] LABS: ALANINE AMINOTRANSFERASE 13 U/L (12-78); ALBUMIN 2.4 g/dL (3.4-5.0); ALKALINE PHOSPHATASE 74 U/L (46-116); ANION GAP 8 mmol/L (8-16); ASPARTATE AMINOTRANSFERASE 14 U/L (15-37); BILIRUBIN,TOTAL 0.5 mg/dL (0.1-1.0); CARBON DIOXIDE 27 mmol/L (22-29); CHLORIDE 108 mmol/L (98-107); CREATININE 1.12 mg/dL (0.60-1.30); GLUCOSE,RANDOM 100 mg/dL (70-110); SODIUM SERUM 143 mmol/L (136-145); TOTAL PROTEIN, SERUM 5.7 g/dL (6.4-8.2); UREA NITROGEN, BLOOD 13 mg/dL (7-18)
[2018-02-16 07:07] LABS: GLOMERULAR FILTR. RATE CALC > 60 mL/min (>60)
[2018-02-16 07:33] LABS: GLUCOMETER DEV NAME(LOC) 5S 1M; GLUCOSE,POINT OF CARE 97 MG/DL (70-110)
[2018-02-16 07:33] LABS: GLUCOMETER DEV NAME(LOC) 5S 1M; GLUCOSE,POINT OF CARE 104 MG/DL (70-110)
[2018-02-16 07:33] LABS: GLUCOMETER DEV NAME(LOC) 5S 1M; GLUCOSE,POINT OF CARE 130 MG/DL (70-110)
[2018-02-16 07:38] VITALS: BP 117/70
[2018-02-16] MEDS: ALFUZOSIN HCL 10 MG ER TABLET PO SCH (08:48)
[2018-02-16] MEDS: DOCUSATE SODIUM 250 MG CAPSULE PO SCH (08:48)
[2018-02-16] MEDS: METOCLOPRAMIDE HCL 5 MG TABLET PO SCH (08:50)
[2018-02-16] MEDS: CALCIUM OYSTER SHELL 250 MG-VIT D3 125 UNITS TABLET PO SCH (08:50)
[2018-02-16] MEDS: SUCRALFATE 1 GM/10 ML SUSPENSION UDCUP PO SCH (08:50)
[2018-02-16] MEDS: PANTOPRAZOLE SODIUM 40 MG DR TABLET PO SCH (08:50)
[2018-02-16] MEDS: MIRTAZAPINE 15 MG TABLET PO SCH (08:50)
[2018-02-16] MEDS: CARBIDOPA/LEVODOPA 25-100 MG TABLET PO SCH (08:50)
[2018-02-16] MEDS: PIOGLITAZONE HCL 15 MG TABLET PO SCH (08:51)
[2018-02-16 09:20] LABS: BAND NEUTROPHILS % (MANUAL) 0 % (0-5)
[2018-02-16 10:05] LABS: HEMATOCRIT 28.7 % (41-53); HEMOGLOBIN 9.4 g/dL (13.5-17.5); MEAN CORPUSCULAR HEMOGLOBIN 26.9 pg (26.0-34.0); MEAN CORPUSCULAR HGB CONC 32.8 G/dL (31.0-37.0); MEAN CORPUSCULAR VOLUME 82 fL (80-100); PLATELET COUNT (AUTO) 239 K/uL (150-450); RED CELL DISTRIBUTION WIDTH 18.4 % (11.5-14.5)
[2018-02-16 10:46] LABS: EOSINOPHILS % (MANUAL) 2 % (1-6); LYMPHOCYTES % (MANUAL) 20 % (22-44); MONOCYTES % (MANUAL) 3 % (2-9); SEGMENTED NEUTROPHILS % 75 % (40-70)
[2018-02-16 11:00] VITALS: BP 107/62
[2018-02-17 19:39] LABS: GLUCOMETER DEV NAME(LOC) 5N 2S; GLUCOSE,POINT OF CARE 157 MG/DL (70-110)
== END 2018-02-16 10:50 | DRG 377 ==
LOC: EMS 04:37 → 5S 06:30
PROVIDERS: ADMIT Internal Medicine; ATTEND Internal Medicine
PROC: 30233N1 Transfusion of Nonautologous Red Blood Cells into Peripheral Vein, Percutaneous Approach (ICD-10-PCS; 2018-02-14)
PROC: 0DJ08ZZ Inspection of Upper Intestinal Tract, Via Natural or Artificial Opening Endoscopic (ICD-10-PCS; principal; 2018-02-14 12:00)
DX: K92.2 Gastrointestinal hemorrhage, unspecified (principal); J18.9 Pneumonia, unspecified organism; K22.10 Ulcer of esophagus without bleeding; G20 Parkinson's disease; D50.9 Iron deficiency anemia, unspecified; G47.00 Insomnia, unspecified; R47.1 Dysarthria and anarthria; R00.0 Tachycardia, unspecified; M19.90 Unspecified osteoarthritis, unspecified site; G30.9 Alzheimer's disease, unspecified; K44.9 Diaphragmatic hernia without obstruction or gangrene; I10 Essential (primary) hypertension; F02.80 Dementia in other diseases classified elsewhere, unspecified severity, without behavioral disturbance, psychotic disturbance, mood disturbance, and anxiety; E78.5 Hyperlipidemia, unspecified; E11.9 Type 2 diabetes mellitus without complications; K92.0 Hematemesis; Z88.8 Allergy status to other drugs, medicaments and biological substances; Z85.46 Personal history of malignant neoplasm of prostate
CPT/HCPCS: 70544; 70553; 83036; 84132; 84443; 85007; 86850; 86900; 86901; 86920; 87081; 92610; 96374; 96375; 97162; 97167; 97530; 97535; 99291; A9585; C9113; J0696; J1940; J2250; J2405; J3010; J7030; J7050; J7060; P9016

== ENCOUNTER 2018-02-16 10:57 | Inpatient (IN) | payer MEDICARE, OTHER ==
[~2018-02-16] VITALS: Ht 167.6 cm; Wt 61.2 kg
[~2018-02-16 10:57] MED LIST changes: -AMLO-511 PO; +ATOR10TA84 PO; -BACL10TA PO; +BENZ-51 PO; +CARB-101 PO; -DONE10TA8 PO; -FINA5TAB41 PO; -GABA-531 PO; +METO5TAB95 PO; +MIRT15 PO; +PIOG15TA6 PO; +SUCR1ORA5 PO; -TELM40 PO
[2018-02-16 11:30] VITALS: BP 124/93
[2018-02-16] MEDS ORDERED: GLUCAGON,HUMAN RECOMBINANT 1 MG VIAL IM PRN (11:30)
[2018-02-16] MEDS ORDERED: IPRATROPIUM BROMIDE 0.5 MG/2.5 ML NEB SOLUTION NEB PRN (11:30)
[2018-02-16] MEDS ORDERED: ONDANSETRON HCL 4 MG TABLET PO PRN (11:30)
[2018-02-16] MEDS ORDERED: ALBUTEROL SULFATE 2.5 MG/0.5 ML NEB SOLUTION NEB PRN (11:30)
[2018-02-16 13:04] LABS: GLUCOMETER DEV NAME(LOC) 2WR 2E; GLUCOSE,POINT OF CARE 110 MG/DL (70-110)
[2018-02-16] MEDS: SUCRALFATE 1 GM/10 ML SUSPENSION UDCUP PO SCH ×3 (13:56→20:06)
[2018-02-16 17:11] VITALS: BP 105/54
[2018-02-16] MEDS: PANTOPRAZOLE SODIUM 40 MG DR TABLET PO SCH (17:12)
[2018-02-16 17:43] LABS: GLUCOMETER DEV NAME(LOC) 2WR 1B; GLUCOSE,POINT OF CARE 125 MG/DL (70-110)
[2018-02-16] MEDS: CALCIUM OYSTER SHELL 250 MG-VIT D3 125 UNITS TABLET PO SCH (18:50)
[2018-02-16] MEDS: HYDROCODONE/ACETAMINOPHEN 5-325 MG TABLET PO PRN (19:56)
[2018-02-16] MEDS: ATORVASTATIN CALCIUM 20 MG TABLET PO SCH (20:06)
[2018-02-16] MEDS: MIRTAZAPINE 15 MG TABLET PO SCH (20:06)
[2018-02-16] MEDS: ALFUZOSIN HCL 10 MG ER TABLET PO SCH (20:06)
[2018-02-16] MEDS: CARBIDOPA/LEVODOPA 25-100 MG TABLET PO SCH (20:06)
[2018-02-16] MEDS: DOCUSATE SODIUM 250 MG CAPSULE PO SCH (20:06)
[2018-02-16] MEDS: SENNA 187 MG TABLET PO SCH (20:06)
[2018-02-16] MEDS ORDERED: CALCIUM OYSTER SHELL 250 MG-VIT D3 125 UNITS TABLET PO SCH (21:00)
[2018-02-16 21:43] LABS: GLUCOMETER DEV NAME(LOC) 2WR 1B; GLUCOSE,POINT OF CARE 123 MG/DL (70-110)
[2018-02-17 04:22] VITALS: BP 119/70
[2018-02-17] MEDS: BENZONATATE 100 MG CAPSULE PO PRN (04:48)
[2018-02-17] MEDS: PANTOPRAZOLE SODIUM 40 MG DR TABLET PO SCH ×2 (06:06→16:53)
[2018-02-17 06:19] LABS: GLUCOMETER DEV NAME(LOC) 2WR 1B; GLUCOSE,POINT OF CARE 113 MG/DL (70-110)
[2018-02-17 07:07] LABS: BASOPHILS % (AUTO) 0.4 % (0.0-2.0); EOSINOPHILS % (AUTO) 1.9 % (1.0-6.0); HEMATOCRIT 28.3 % (41-53); HEMOGLOBIN 9.5 g/dL (13.5-17.5); LYMPHOCYTES # (AUTO) 1.1 K/uL (1.0-4.8); LYMPHOCYTES % (AUTO) 16.4 % (22.0-44.0); MEAN CORPUSCULAR HEMOGLOBIN 27.1 pg (26.0-34.0); MEAN CORPUSCULAR HGB CONC 33.5 G/dL (31.0-37.0); MEAN CORPUSCULAR VOLUME 81 fL (80-100); MONOCYTES # (AUTO) 0.6 K/uL (0.1-1.0); MONOCYTES % (AUTO) 9.2 % (2.0-9.0); NEUTROPHILS % (AUTO) 72.1 % (40.0-70.0); PLATELET COUNT (AUTO) 246 K/uL (150-450); RED CELL DISTRIBUTION WIDTH 18.7 % (11.5-14.5)
[2018-02-17 07:37] VITALS: BP 124/64
[2018-02-17 07:37] LABS: ALANINE AMINOTRANSFERASE 9 U/L (12-78); ALBUMIN 2.5 g/dL (3.4-5.0); ALKALINE PHOSPHATASE 76 U/L (46-116); ANION GAP 8 mmol/L (8-16); ASPARTATE AMINOTRANSFERASE 10 U/L (15-37); BILIRUBIN,TOTAL 0.5 mg/dL (0.1-1.0); CALCIUM, TOTAL 8.9 mg/dL (8.8-10.5); CARBON DIOXIDE 28 mmol/L (22-29); CHLORIDE 106 mmol/L (98-107); CREATININE 1.07 mg/dL (0.60-1.30); GLUCOSE,RANDOM 113 mg/dL (70-110); POTASSIUM 3.7 mmol/L (3.5-5.1); SODIUM SERUM 142 mmol/L (136-145); TOTAL PROTEIN, SERUM 5.8 g/dL (6.4-8.2); UREA NITROGEN, BLOOD 12 mg/dL (7-18)
[2018-02-17 07:38] LABS: GLOMERULAR FILTR. RATE CALC > 60 mL/min (>60)
[2018-02-17] MEDS: METOCLOPRAMIDE HCL 5 MG TABLET PO SCH (08:25)
[2018-02-17] MEDS: HYDROCODONE/ACETAMINOPHEN 5-325 MG TABLET PO PRN (08:25)
[2018-02-17] MEDS: DOCUSATE SODIUM 250 MG CAPSULE PO SCH ×2 (08:25→21:10)
[2018-02-17] MEDS: CARBIDOPA/LEVODOPA 25-100 MG TABLET PO SCH ×2 (08:25→21:09)
[2018-02-17] MEDS: PIOGLITAZONE HCL 15 MG TABLET PO SCH (08:26)
[2018-02-17] MEDS: SUCRALFATE 1 GM/10 ML SUSPENSION UDCUP PO SCH ×4 (08:26→21:10)
[2018-02-17 09:12] LABS: APPEARANCE,URINE CLEAR (CLEAR); BILIRUBIN,URINE NEGATIVE (NEGATIVE); GLUCOSE, URINE (UA) NEGATIVE (NEGATIVE); KETONES,URINE NEGATIVE (NEGATIVE); LEUKOCYTE ESTERASE ,URINE NEGATIVE (NEGATIVE); NITRATE,URINE NEGATIVE (NEGATIVE); OCCULT BLOOD,URINE NEGATIVE (NEGATIVE); PH,URINE 5.5 (5.0-8.0); PROTEIN,URINE NEGATIVE (NEGATIVE); UROBILINOGEN,URINE 0.2 mg/dL (<=1.0)
[2018-02-17 09:34] LABS: RBC,URINE None Seen /HPF (0-2)
[2018-02-17 09:35] LABS: BACTERIA,URINE Rare /HPF (None Seen); SQUAMOUS EPITHELIAL CELL,UR Few /LPF (None Seen); WBC,URINE 0-2 /HPF (0-5)
[2018-02-17] MEDS: INSULIN LISPRO 100 UNITS/ML SQ PRN (12:30)
[2018-02-17 15:00] VITALS: BP 102/61
[2018-02-17 15:13] LABS: GLUCOMETER DEV NAME(LOC) 2WR 2E; GLUCOSE,POINT OF CARE 157 MG/DL (70-110)
[2018-02-17] MEDS: CALCIUM OYSTER SHELL 250 MG-VIT D3 125 UNITS TABLET PO SCH (18:14)
[2018-02-17] MEDS: MIRTAZAPINE 15 MG TABLET PO SCH (21:09)
[2018-02-17] MEDS: SENNA 187 MG TABLET PO SCH (21:09)
[2018-02-17] MEDS: ALFUZOSIN HCL 10 MG ER TABLET PO SCH (21:10)
[2018-02-17] MEDS: ATORVASTATIN CALCIUM 20 MG TABLET PO SCH (21:10)
[2018-02-17 22:39] LABS: GLUCOMETER DEV NAME(LOC) 2WR 2E; GLUCOSE,POINT OF CARE 126 MG/DL (70-110)
[2018-02-17 22:39] LABS: GLUCOMETER DEV NAME(LOC) 2WR 2E; GLUCOSE,POINT OF CARE 130 MG/DL (70-110)
[2018-02-18 00:23] VITALS: BP 122/75
[2018-02-18 05:49] LABS: GLUCOMETER DEV NAME(LOC) 2WR 1B; GLUCOSE,POINT OF CARE 98 MG/DL (70-110)
[2018-02-18] MEDS: PANTOPRAZOLE SODIUM 40 MG DR TABLET PO SCH ×2 (06:49→16:29)
[2018-02-18 08:00] VITALS: BP 110/69
[2018-02-18] MEDS: METOCLOPRAMIDE HCL 5 MG TABLET PO SCH (08:44)
[2018-02-18] MEDS: CARBIDOPA/LEVODOPA 25-100 MG TABLET PO SCH ×2 (08:45→20:13)
[2018-02-18] MEDS: PIOGLITAZONE HCL 15 MG TABLET PO SCH (08:45)
[2018-02-18] MEDS: SUCRALFATE 1 GM/10 ML SUSPENSION UDCUP PO SCH ×4 (08:45→20:13)
[2018-02-18] MEDS: DOCUSATE SODIUM 250 MG CAPSULE PO SCH ×2 (08:45→20:13)
[2018-02-18] MEDS ORDERED: ACETAMINOPHEN 500 MG TABLET PO PRN (10:15)
[2018-02-18 12:34] LABS: GLUCOMETER DEV NAME(LOC) 2WR 1B; GLUCOSE,POINT OF CARE 156 MG/DL (70-110)
[2018-02-18 15:32] VITALS: BP 105/65
[2018-02-18 17:53] LABS: GLUCOMETER DEV NAME(LOC) 2WR 2E; GLUCOSE,POINT OF CARE 120 MG/DL (70-110)
[2018-02-18] MEDS: CALCIUM OYSTER SHELL 250 MG-VIT D3 125 UNITS TABLET PO SCH (18:20)
[2018-02-18] MEDS: DOCUSATE SODIUM 283 MG/5 ML MINI-ENEMA PR SCH (18:20)
[2018-02-18] MEDS: BENZONATATE 100 MG CAPSULE PO PRN (18:30)
[2018-02-18] MEDS: SENNA 187 MG TABLET PO SCH (20:13)
[2018-02-18] MEDS: ATORVASTATIN CALCIUM 20 MG TABLET PO SCH (20:13)
[2018-02-18] MEDS: ALFUZOSIN HCL 10 MG ER TABLET PO SCH (20:13)
[2018-02-18] MEDS: MIRTAZAPINE 15 MG TABLET PO SCH (20:13)
[2018-02-18 22:28] LABS: GLUCOMETER DEV NAME(LOC) 2WR 2E; GLUCOSE,POINT OF CARE 130 MG/DL (70-110)
[2018-02-19 00:23] VITALS: BP 122/67
[2018-02-19 05:54] LABS: GLUCOMETER DEV NAME(LOC) 2WR 1B; GLUCOSE,POINT OF CARE 107 MG/DL (70-110)
[2018-02-19 07:30] VITALS: BP 110/57
[2018-02-19] MEDS: PANTOPRAZOLE SODIUM 40 MG DR TABLET PO SCH ×2 (07:32→16:47)
[2018-02-19] MEDS: SUCRALFATE 1 GM/10 ML SUSPENSION UDCUP PO SCH ×4 (07:33→20:58)
[2018-02-19] MEDS: DOCUSATE SODIUM 250 MG CAPSULE PO SCH ×2 (08:07→20:58)
[2018-02-19] MEDS: CARBIDOPA/LEVODOPA 25-100 MG TABLET PO SCH ×2 (08:07→20:58)
[2018-02-19] MEDS: METOCLOPRAMIDE HCL 5 MG TABLET PO SCH (08:07)
[2018-02-19] MEDS: PIOGLITAZONE HCL 15 MG TABLET PO SCH (08:07)
[2018-02-19 12:10] LABS: GLUCOMETER DEV NAME(LOC) 2WR 2E; GLUCOSE,POINT OF CARE 165 MG/DL (70-110)
[2018-02-19 15:27] VITALS: BP 100/48
[2018-02-19 17:54] LABS: GLUCOMETER DEV NAME(LOC) 2WR 1B; GLUCOSE,POINT OF CARE 114 MG/DL (70-110)
[2018-02-19] MEDS: CALCIUM OYSTER SHELL 250 MG-VIT D3 125 UNITS TABLET PO SCH (18:07)
[2018-02-19] MEDS: DOCUSATE SODIUM 283 MG/5 ML MINI-ENEMA PR SCH (18:24)
[2018-02-19] MEDS: MIRTAZAPINE 15 MG TABLET PO SCH (20:58)
[2018-02-19] MEDS: ATORVASTATIN CALCIUM 20 MG TABLET PO SCH (20:58)
[2018-02-19] MEDS: ALFUZOSIN HCL 10 MG ER TABLET PO SCH (20:58)
[2018-02-19] MEDS: BENZONATATE 100 MG CAPSULE PO PRN (20:58)
[2018-02-19] MEDS: SENNA 187 MG TABLET PO SCH (20:59)
[2018-02-19 21:34] LABS: GLUCOMETER DEV NAME(LOC) 2WR 1B; GLUCOSE,POINT OF CARE 127 MG/DL (70-110)
[2018-02-20 01:06] VITALS: BP 125/74
[2018-02-20] MEDS: PANTOPRAZOLE SODIUM 40 MG DR TABLET PO SCH ×2 (05:38→16:15)
[2018-02-20] MEDS: BENZONATATE 100 MG CAPSULE PO PRN (05:38)
[2018-02-20 05:54] LABS: GLUCOMETER DEV NAME(LOC) 2WR 1B; GLUCOSE,POINT OF CARE 98 MG/DL (70-110)
[2018-02-20 07:32] LABS: THYROID STIMULATING HORMONE 1.88 uIU/mL (0.36-3.74)
[2018-02-20 07:35] LABS: HEMOGLOBIN A1C 6.1 % (4.5-6.2)
[2018-02-20] MEDS: DOCUSATE SODIUM 250 MG CAPSULE PO SCH ×2 (07:48→21:31)
[2018-02-20] MEDS: CARBIDOPA/LEVODOPA 25-100 MG TABLET PO SCH ×2 (07:49→21:31)
[2018-02-20] MEDS: SUCRALFATE 1 GM/10 ML SUSPENSION UDCUP PO SCH ×4 (07:50→21:32)
[2018-02-20] MEDS: METOCLOPRAMIDE HCL 5 MG TABLET PO SCH (07:50)
[2018-02-20] MEDS: PIOGLITAZONE HCL 15 MG TABLET PO SCH (07:50)
[2018-02-20 07:52] VITALS: BP 110/72
[2018-02-20] MEDS: ACETAMINOPHEN 325 MG TABLET PO PRN (07:52)
[2018-02-20] MEDS: INSULIN LISPRO 100 UNITS/ML SQ PRN (12:59)
[2018-02-20 13:00] LABS: GLUCOMETER DEV NAME(LOC) 2WR 2E; GLUCOSE,POINT OF CARE 159 MG/DL (70-110)
[2018-02-20 15:01] VITALS: BP 98/66
[2018-02-20] MEDS: DOCUSATE SODIUM 283 MG/5 ML MINI-ENEMA PR SCH (18:35)
[2018-02-20] MEDS: CALCIUM OYSTER SHELL 250 MG-VIT D3 125 UNITS TABLET PO SCH (18:38)
[2018-02-20 19:14] LABS: GLUCOMETER DEV NAME(LOC) 2WR 2E; GLUCOSE,POINT OF CARE 122 MG/DL (70-110)
[2018-02-20] MEDS: MIRTAZAPINE 15 MG TABLET PO SCH (21:30)
[2018-02-20] MEDS: ATORVASTATIN CALCIUM 20 MG TABLET PO SCH (21:31)
[2018-02-20] MEDS: SENNA 187 MG TABLET PO SCH (21:31)
[2018-02-20] MEDS: ALFUZOSIN HCL 10 MG ER TABLET PO SCH (21:31)
[2018-02-20 23:33] VITALS: BP 103/58
[2018-02-21 05:41] LABS: GLUCOMETER DEV NAME(LOC) 2WR 1B; GLUCOSE,POINT OF CARE 126 MG/DL (70-110)
[2018-02-21] MEDS: PANTOPRAZOLE SODIUM 40 MG DR TABLET PO SCH ×2 (05:41→17:00)
[2018-02-21 06:06] LABS: GLUCOMETER DEV NAME(LOC) 2WR 2E; GLUCOSE,POINT OF CARE 102 MG/DL (70-110)
[2018-02-21 07:37] VITALS: BP 124/69
[2018-02-21] MEDS: SUCRALFATE 1 GM/10 ML SUSPENSION UDCUP PO SCH ×4 (08:14→20:43)
[2018-02-21] MEDS: DOCUSATE SODIUM 250 MG CAPSULE PO SCH ×2 (08:16→20:43)
[2018-02-21] MEDS: METOCLOPRAMIDE HCL 5 MG TABLET PO SCH (08:17)
[2018-02-21] MEDS: CARBIDOPA/LEVODOPA 25-100 MG TABLET PO SCH ×4 (08:17→20:43)
[2018-02-21] MEDS: PIOGLITAZONE HCL 15 MG TABLET PO SCH (08:17)
[2018-02-21] MEDS: ACETAMINOPHEN 325 MG TABLET PO PRN (13:31)
[2018-02-21 16:45] VITALS: BP 99/62
[2018-02-21] MEDS: CALCIUM OYSTER SHELL 250 MG-VIT D3 125 UNITS TABLET PO SCH (17:44)
[2018-02-21 17:53] LABS: GLUCOMETER DEV NAME(LOC) 2WR 1B; GLUCOSE,POINT OF CARE 125 MG/DL (70-110)
[2018-02-21] MEDS: DOCUSATE SODIUM 283 MG/5 ML MINI-ENEMA PR SCH (18:43)
[2018-02-21] MEDS: MIRTAZAPINE 15 MG TABLET PO SCH (20:43)
[2018-02-21] MEDS: ALFUZOSIN HCL 10 MG ER TABLET PO SCH (20:43)
[2018-02-21] MEDS: ATORVASTATIN CALCIUM 20 MG TABLET PO SCH (20:43)
[2018-02-21] MEDS: SENNA 187 MG TABLET PO SCH (20:43)
[2018-02-21 20:52] VITALS: BP 111/68
[2018-02-22 00:58] VITALS: BP 110/57
[2018-02-22 05:49] LABS: GLUCOMETER DEV NAME(LOC) 2WR 2E; GLUCOSE,POINT OF CARE 108 MG/DL (70-110)
[2018-02-22] MEDS: PANTOPRAZOLE SODIUM 40 MG DR TABLET PO SCH ×2 (05:55→15:57)
[2018-02-22 07:21] VITALS: BP 122/89
[2018-02-22] MEDS: PIOGLITAZONE HCL 15 MG TABLET PO SCH (07:33)
[2018-02-22] MEDS: METOCLOPRAMIDE HCL 5 MG TABLET PO SCH (07:33)
[2018-02-22] MEDS: SUCRALFATE 1 GM/10 ML SUSPENSION UDCUP PO SCH ×4 (07:33→20:08)
[2018-02-22] MEDS: DOCUSATE SODIUM 250 MG CAPSULE PO SCH ×2 (07:34→20:09)
[2018-02-22] MEDS: CARBIDOPA/LEVODOPA 25-100 MG TABLET PO SCH ×3 (07:34→20:09)
[2018-02-22 15:27] VITALS: BP 129/65
[2018-02-22 17:49] LABS: GLUCOMETER DEV NAME(LOC) 2WR 2E; GLUCOSE,POINT OF CARE 123 MG/DL (70-110)
[2018-02-22] MEDS: DOCUSATE SODIUM 283 MG/5 ML MINI-ENEMA PR SCH (18:00)
[2018-02-22] MEDS: ATORVASTATIN CALCIUM 20 MG TABLET PO SCH (20:07)
[2018-02-22] MEDS: SENNA 187 MG TABLET PO SCH (20:08)
[2018-02-22] MEDS: CALCIUM OYSTER SHELL 250 MG-VIT D3 125 UNITS TABLET PO SCH (20:08)
[2018-02-22] MEDS: ALFUZOSIN HCL 10 MG ER TABLET PO SCH (20:08)
[2018-02-22] MEDS: MIRTAZAPINE 15 MG TABLET PO SCH (20:09)
[2018-02-22] MEDS: QUEtiapine FUMARATE 25 MG TABLET PO SCH (21:51)
[2018-02-23 00:57] VITALS: BP 108/72
[2018-02-23] MEDS: PANTOPRAZOLE SODIUM 40 MG DR TABLET PO SCH ×2 (05:25→16:39)
[2018-02-23 06:01] LABS: GLUCOMETER DEV NAME(LOC) 2WR 2E; GLUCOSE,POINT OF CARE 105 MG/DL (70-110)
[2018-02-23 07:19] VITALS: BP 119/60
[2018-02-23] MEDS: CARBIDOPA/LEVODOPA 25-100 MG TABLET PO SCH ×3 (08:20→21:04)
[2018-02-23] MEDS: PIOGLITAZONE HCL 15 MG TABLET PO SCH (08:20)
[2018-02-23] MEDS: DOCUSATE SODIUM 250 MG CAPSULE PO SCH ×2 (08:20→21:04)
[2018-02-23] MEDS: SUCRALFATE 1 GM/10 ML SUSPENSION UDCUP PO SCH ×4 (08:20→21:02)
[2018-02-23 15:22] VITALS: BP 100/68
[2018-02-23] MEDS: ACETAMINOPHEN 325 MG TABLET PO PRN (15:31)
[2018-02-23] MEDS: DOCUSATE SODIUM 283 MG/5 ML MINI-ENEMA PR SCH (18:00)
[2018-02-23] MEDS: ALFUZOSIN HCL 10 MG ER TABLET PO SCH (21:03)
[2018-02-23] MEDS: MIRTAZAPINE 15 MG TABLET PO SCH (21:03)
[2018-02-23] MEDS: ATORVASTATIN CALCIUM 20 MG TABLET PO SCH (21:03)
[2018-02-23] MEDS: CALCIUM OYSTER SHELL 250 MG-VIT D3 125 UNITS TABLET PO SCH (21:03)
[2018-02-23] MEDS: SENNA 187 MG TABLET PO SCH (21:04)
[2018-02-23] MEDS: QUEtiapine FUMARATE 25 MG TABLET PO SCH (21:04)
[2018-02-23] MEDS: INSULIN LISPRO 100 UNITS/ML SQ PRN (21:22)
[2018-02-23 21:53] LABS: GLUCOMETER DEV NAME(LOC) 2WR 2E; GLUCOSE,POINT OF CARE 159 MG/DL (70-110)
[2018-02-24 00:03] VITALS: BP 116/67
[2018-02-24] MEDS: PANTOPRAZOLE SODIUM 40 MG DR TABLET PO SCH ×2 (06:36→16:28)
[2018-02-24 06:43] LABS: GLUCOMETER DEV NAME(LOC) 2WR 1B; GLUCOSE,POINT OF CARE 115 MG/DL (70-110)
[2018-02-24 07:37] VITALS: BP 132/59
[2018-02-24] MEDS: DOCUSATE SODIUM 250 MG CAPSULE PO SCH ×2 (08:49→20:30)
[2018-02-24] MEDS: SUCRALFATE 1 GM/10 ML SUSPENSION UDCUP PO SCH ×4 (08:50→20:30)
[2018-02-24] MEDS: PIOGLITAZONE HCL 15 MG TABLET PO SCH (08:50)
[2018-02-24] MEDS: CARBIDOPA/LEVODOPA 25-100 MG TABLET PO SCH ×3 (08:50→20:30)
[2018-02-24] MEDS: BENZONATATE 100 MG CAPSULE PO PRN (08:50)
[2018-02-24 15:19] VITALS: BP 120/68
[2018-02-24 17:38] LABS: GLUCOMETER DEV NAME(LOC) 2WR 2E; GLUCOSE,POINT OF CARE 126 MG/DL (70-110)
[2018-02-24] MEDS: CALCIUM OYSTER SHELL 250 MG-VIT D3 125 UNITS TABLET PO SCH (17:47)
[2018-02-24] MEDS: DOCUSATE SODIUM 283 MG/5 ML MINI-ENEMA PR SCH (17:52)
[2018-02-24] MEDS: QUEtiapine FUMARATE 25 MG TABLET PO SCH (20:30)
[2018-02-24] MEDS: MIRTAZAPINE 15 MG TABLET PO SCH (20:30)
[2018-02-24] MEDS: SENNA 187 MG TABLET PO SCH (20:30)
[2018-02-24] MEDS: ATORVASTATIN CALCIUM 20 MG TABLET PO SCH (20:30)
[2018-02-24] MEDS: ALFUZOSIN HCL 10 MG ER TABLET PO SCH (20:30)
[2018-02-25 01:00] VITALS: BP 125/80
[2018-02-25] MEDS: DOCUSATE SODIUM 283 MG/5 ML MINI-ENEMA PR SCH (05:07)
[2018-02-25 06:04] LABS: GLUCOMETER DEV NAME(LOC) 2WR 1B; GLUCOSE,POINT OF CARE 119 MG/DL (70-110)
[2018-02-25] MEDS: PANTOPRAZOLE SODIUM 40 MG DR TABLET PO SCH ×2 (06:13→16:39)
[2018-02-25 07:21] VITALS: BP 137/90
[2018-02-25] MEDS: DOCUSATE SODIUM 250 MG CAPSULE PO SCH ×2 (09:34→20:05)
[2018-02-25] MEDS: BENZONATATE 100 MG CAPSULE PO PRN (09:34)
[2018-02-25] MEDS: PIOGLITAZONE HCL 15 MG TABLET PO SCH (09:34)
[2018-02-25] MEDS: CARBIDOPA/LEVODOPA 25-100 MG TABLET PO SCH ×3 (09:34→20:06)
[2018-02-25] MEDS: SUCRALFATE 1 GM/10 ML SUSPENSION UDCUP PO SCH ×4 (09:35→20:02)
[2018-02-25 15:24] VITALS: BP 115/66
[2018-02-25] MEDS: CALCIUM OYSTER SHELL 250 MG-VIT D3 125 UNITS TABLET PO SCH (16:39)
[2018-02-25] MEDS: INSULIN LISPRO 100 UNITS/ML SQ PRN (17:32)
[2018-02-25 19:18] LABS: GLUCOMETER DEV NAME(LOC) 2WR 1B; GLUCOSE,POINT OF CARE 159 MG/DL (70-110)
[2018-02-25] MEDS: ALFUZOSIN HCL 10 MG ER TABLET PO SCH (20:02)
[2018-02-25] MEDS: ATORVASTATIN CALCIUM 20 MG TABLET PO SCH (20:03)
[2018-02-25] MEDS: SENNA 187 MG TABLET PO SCH (20:03)
[2018-02-25] MEDS: QUEtiapine FUMARATE 25 MG TABLET PO SCH (20:03)
[2018-02-25] MEDS: MIRTAZAPINE 15 MG TABLET PO SCH (20:12)
[2018-02-26] MEDS: DOCUSATE SODIUM 283 MG/5 ML MINI-ENEMA PR SCH (05:29)
[2018-02-26] MEDS: PANTOPRAZOLE SODIUM 40 MG DR TABLET PO SCH ×2 (05:34→16:11)
[2018-02-26 05:38] VITALS: BP 109/68
[2018-02-26 06:39] LABS: GLUCOMETER DEV NAME(LOC) 2WR 1B; GLUCOSE,POINT OF CARE 110 MG/DL (70-110)
[2018-02-26 07:24] VITALS: BP 123/65
[2018-02-26] MEDS: SUCRALFATE 1 GM/10 ML SUSPENSION UDCUP PO SCH ×4 (08:33→20:04)
[2018-02-26] MEDS: DOCUSATE SODIUM 250 MG CAPSULE PO SCH ×2 (08:33→20:05)
[2018-02-26] MEDS: PIOGLITAZONE HCL 15 MG TABLET PO SCH (08:33)
[2018-02-26] MEDS: CARBIDOPA/LEVODOPA 25-100 MG TABLET PO SCH ×3 (08:33→20:05)
[2018-02-26 09:47] LABS: BASOPHILS % (AUTO) 0.4 % (0.0-2.0); EOSINOPHILS % (AUTO) 1.1 % (1.0-6.0); HEMATOCRIT 32.6 % (41-53); HEMOGLOBIN 10.6 g/dL (13.5-17.5); LYMPHOCYTES # (AUTO) 0.9 K/uL (1.0-4.8); MEAN CORPUSCULAR HEMOGLOBIN 26.3 pg (26.0-34.0); MEAN CORPUSCULAR HGB CONC 32.5 G/dL (31.0-37.0); MEAN CORPUSCULAR VOLUME 81 fL (80-100); MONOCYTES # (AUTO) 0.3 K/uL (0.1-1.0); MONOCYTES % (AUTO) 4.7 % (2.0-9.0); NEUTROPHILS # (AUTO) 4.9 K/uL (1.8-7.7); NEUTROPHILS % (AUTO) 78.8 % (40.0-70.0); PLATELET COUNT (AUTO) 233 K/uL (150-450); RED BLOOD CELL COUNT(AUTO) 4.03 MIL/uL (4.50-5.90); RED CELL DISTRIBUTION WIDTH 18.9 % (11.5-14.5)
[2018-02-26 15:48] VITALS: BP 116/56
[2018-02-26] MEDS: HYDROCODONE/ACETAMINOPHEN 5-325 MG TABLET PO PRN (16:11)
[2018-02-26] MEDS: CALCIUM OYSTER SHELL 250 MG-VIT D3 125 UNITS TABLET PO SCH (18:01)
[2018-02-26 18:13] LABS: GLUCOMETER DEV NAME(LOC) 2WR 1B; GLUCOSE,POINT OF CARE 121 MG/DL (70-110)
[2018-02-26] MEDS: ALFUZOSIN HCL 10 MG ER TABLET PO SCH (20:04)
[2018-02-26] MEDS: QUEtiapine FUMARATE 25 MG TABLET PO SCH (20:04)
[2018-02-26] MEDS: SENNA 187 MG TABLET PO SCH (20:05)
[2018-02-26] MEDS: MIRTAZAPINE 15 MG TABLET PO SCH (20:05)
[2018-02-26] MEDS: ATORVASTATIN CALCIUM 20 MG TABLET PO SCH (20:05)
[2018-02-27 00:59] VITALS: BP 118/72
[2018-02-27] MEDS: PANTOPRAZOLE SODIUM 40 MG DR TABLET PO SCH ×2 (05:37→16:55)
[2018-02-27] MEDS: DOCUSATE SODIUM 283 MG/5 ML MINI-ENEMA PR SCH (05:37)
[2018-02-27 06:19] LABS: GLUCOMETER DEV NAME(LOC) 2WR 2E; GLUCOSE,POINT OF CARE 120 MG/DL (70-110)
[2018-02-27 07:44] VITALS: BP 127/79
[2018-02-27] MEDS: HYDROCODONE/ACETAMINOPHEN 5-325 MG TABLET PO PRN (09:26)
[2018-02-27] MEDS: DOCUSATE SODIUM 250 MG CAPSULE PO SCH ×2 (09:26→20:43)
[2018-02-27] MEDS: PIOGLITAZONE HCL 15 MG TABLET PO SCH (09:26)
[2018-02-27] MEDS: SUCRALFATE 1 GM/10 ML SUSPENSION UDCUP PO SCH ×4 (09:26→20:43)
[2018-02-27] MEDS: CARBIDOPA/LEVODOPA 25-100 MG TABLET PO SCH ×3 (10:45→20:44)
[2018-02-27 16:07] VITALS: BP 114/64
[2018-02-27] MEDS: CALCIUM OYSTER SHELL 250 MG-VIT D3 125 UNITS TABLET PO SCH (16:56)
[2018-02-27 20:19] LABS: GLUCOMETER DEV NAME(LOC) 2WR 1B; GLUCOSE,POINT OF CARE 190 MG/DL (70-110)
[2018-02-27] MEDS: ALFUZOSIN HCL 10 MG ER TABLET PO SCH (20:43)
[2018-02-27] MEDS: SENNA 187 MG TABLET PO SCH (20:43)
[2018-02-27] MEDS: MIRTAZAPINE 15 MG TABLET PO SCH (20:43)
[2018-02-27] MEDS: ATORVASTATIN CALCIUM 20 MG TABLET PO SCH (20:43)
[2018-02-27] MEDS: METOPROLOL SUCCINATE 25 MG ER TABLET PO SCH (20:44)
[2018-02-27] MEDS: QUEtiapine FUMARATE 25 MG TABLET PO SCH (20:44)
[2018-02-27 20:54] VITALS: BP 113/61
[2018-02-28 03:00] VITALS: BP 110/59
[2018-02-28] MEDS: DOCUSATE SODIUM 283 MG/5 ML MINI-ENEMA PR SCH ×2 (05:46→05:53)
[2018-02-28] MEDS: PANTOPRAZOLE SODIUM 40 MG DR TABLET PO SCH ×2 (05:46→16:01)
[2018-02-28 05:59] LABS: GLUCOMETER DEV NAME(LOC) 2WR 2E; GLUCOSE,POINT OF CARE 107 MG/DL (70-110)
[2018-02-28 07:53] VITALS: BP 106/68
[2018-02-28] MEDS: DOCUSATE SODIUM 250 MG CAPSULE PO SCH ×2 (09:02→20:19)
[2018-02-28] MEDS: PIOGLITAZONE HCL 15 MG TABLET PO SCH (09:02)
[2018-02-28] MEDS: FINASTERIDE 5 MG TABLET PO SCH (09:02)
[2018-02-28] MEDS: SUCRALFATE 1 GM/10 ML SUSPENSION UDCUP PO SCH ×4 (09:02→20:19)
[2018-02-28] MEDS: CARBIDOPA/LEVODOPA 25-100 MG TABLET PO SCH ×3 (10:14→20:20)
[2018-02-28 15:30] VITALS: BP 114/55
[2018-02-28 17:18] LABS: GLUCOMETER DEV NAME(LOC) 2WR 2E; GLUCOSE,POINT OF CARE 161 MG/DL (70-110)
[2018-02-28] MEDS: ATORVASTATIN CALCIUM 20 MG TABLET PO SCH (20:19)
[2018-02-28] MEDS: CALCIUM OYSTER SHELL 250 MG-VIT D3 125 UNITS TABLET PO SCH (20:19)
[2018-02-28] MEDS: MIRTAZAPINE 15 MG TABLET PO SCH (20:20)
[2018-02-28] MEDS: ALFUZOSIN HCL 10 MG ER TABLET PO SCH (20:20)
[2018-02-28] MEDS: METOPROLOL SUCCINATE 25 MG ER TABLET PO SCH (20:20)
[2018-02-28] MEDS: QUEtiapine FUMARATE 25 MG TABLET PO SCH (20:20)
[2018-02-28] MEDS: SENNA 187 MG TABLET PO SCH (20:20)
[2018-02-28 23:29] VITALS: BP 111/68
[2018-02-28] MEDS: ACETAMINOPHEN 325 MG TABLET PO PRN (23:41)
[2018-03-01] MEDS: DOCUSATE SODIUM 283 MG/5 ML MINI-ENEMA PR SCH (05:29)
[2018-03-01] MEDS: PANTOPRAZOLE SODIUM 40 MG DR TABLET PO SCH ×2 (05:29→15:32)
[2018-03-01 06:09] LABS: GLUCOMETER DEV NAME(LOC) 2WR 1B; GLUCOSE,POINT OF CARE 124 MG/DL (70-110)
[2018-03-01] MEDS: BENZONATATE 100 MG CAPSULE PO PRN (08:10)
[2018-03-01] MEDS: DOCUSATE SODIUM 250 MG CAPSULE PO SCH ×2 (08:10→21:21)
[2018-03-01] MEDS: CARBIDOPA/LEVODOPA 25-100 MG TABLET PO SCH ×3 (08:10→21:21)
[2018-03-01] MEDS: SUCRALFATE 1 GM/10 ML SUSPENSION UDCUP PO SCH ×4 (08:11→21:20)
[2018-03-01] MEDS: PIOGLITAZONE HCL 15 MG TABLET PO SCH (08:11)
[2018-03-01] MEDS: FINASTERIDE 5 MG TABLET PO SCH (08:11)
[2018-03-01 08:12] VITALS: BP 128/63
[2018-03-01] MEDS: ACETAMINOPHEN 325 MG TABLET PO PRN (08:12)
[2018-03-01 15:25] VITALS: BP 113/72
[2018-03-01] MEDS: INSULIN LISPRO 100 UNITS/ML SQ PRN (17:52)
[2018-03-01] MEDS: CALCIUM OYSTER SHELL 250 MG-VIT D3 125 UNITS TABLET PO SCH (17:52)
[2018-03-01 18:29] LABS: GLUCOMETER DEV NAME(LOC) 2WR 1B; GLUCOSE,POINT OF CARE 179 MG/DL (70-110)
[2018-03-01] MEDS: METOPROLOL SUCCINATE 25 MG ER TABLET PO SCH (21:20)
[2018-03-01] MEDS: MIRTAZAPINE 15 MG TABLET PO SCH (21:20)
[2018-03-01] MEDS: ALFUZOSIN HCL 10 MG ER TABLET PO SCH (21:20)
[2018-03-01] MEDS: SENNA 187 MG TABLET PO SCH (21:20)
[2018-03-01] MEDS: ATORVASTATIN CALCIUM 20 MG TABLET PO SCH (21:20)
[2018-03-01] MEDS: QUEtiapine FUMARATE 25 MG TABLET PO SCH (21:21)
[2018-03-02 00:30] VITALS: BP 108/52
[2018-03-02] MEDS: DOCUSATE SODIUM 283 MG/5 ML MINI-ENEMA PR SCH (05:31)
[2018-03-02] MEDS: PANTOPRAZOLE SODIUM 40 MG DR TABLET PO SCH ×2 (06:21→16:41)
[2018-03-02 06:58] LABS: GLUCOMETER DEV NAME(LOC) 2WR 1B; GLUCOSE,POINT OF CARE 131 MG/DL (70-110)
[2018-03-02 07:47] VITALS: BP 118/64
[2018-03-02] MEDS: BENZONATATE 100 MG CAPSULE PO PRN (08:24)
[2018-03-02] MEDS: DOCUSATE SODIUM 250 MG CAPSULE PO SCH ×2 (08:24→20:18)
[2018-03-02] MEDS: SUCRALFATE 1 GM/10 ML SUSPENSION UDCUP PO SCH ×4 (08:24→20:17)
[2018-03-02] MEDS: FINASTERIDE 5 MG TABLET PO SCH (08:24)
[2018-03-02] MEDS: CARBIDOPA/LEVODOPA 25-100 MG TABLET PO SCH ×3 (08:25→20:18)
[2018-03-02] MEDS: PIOGLITAZONE HCL 15 MG TABLET PO SCH (08:25)
[2018-03-02 16:21] VITALS: BP 113/67
[2018-03-02] MEDS: CALCIUM OYSTER SHELL 250 MG-VIT D3 125 UNITS TABLET PO SCH (18:02)
[2018-03-02 18:04] LABS: GLUCOMETER DEV NAME(LOC) 2WR 1B; GLUCOSE,POINT OF CARE 171 MG/DL (70-110)
[2018-03-02] MEDS: INSULIN LISPRO 100 UNITS/ML SQ PRN (18:07)
[2018-03-02 20:16] VITALS: BP 114/52
[2018-03-02] MEDS: ATORVASTATIN CALCIUM 20 MG TABLET PO SCH (20:18)
[2018-03-02] MEDS: METOPROLOL SUCCINATE 25 MG ER TABLET PO SCH (20:18)
[2018-03-02] MEDS: ALFUZOSIN HCL 10 MG ER TABLET PO SCH (20:18)
[2018-03-02] MEDS: MIRTAZAPINE 15 MG TABLET PO SCH (20:18)
[2018-03-02] MEDS: SENNA 187 MG TABLET PO SCH (20:18)
[2018-03-02] MEDS: QUEtiapine FUMARATE 25 MG TABLET PO SCH (20:18)
[2018-03-03] VITALS: BP 112/69
[2018-03-03] MEDS: DOCUSATE SODIUM 283 MG/5 ML MINI-ENEMA PR SCH (06:00)
[2018-03-03] MEDS: PANTOPRAZOLE SODIUM 40 MG DR TABLET PO SCH ×2 (06:25→16:01)
[2018-03-03 06:29] LABS: GLUCOMETER DEV NAME(LOC) 2WR 1B; GLUCOSE,POINT OF CARE 128 MG/DL (70-110)
[2018-03-03 08:30] VITALS: BP 124/55
[2018-03-03] MEDS: BENZONATATE 100 MG CAPSULE PO PRN (08:32)
[2018-03-03] MEDS: CARBIDOPA/LEVODOPA 25-100 MG TABLET PO SCH ×3 (08:32→20:02)
[2018-03-03] MEDS: DOCUSATE SODIUM 250 MG CAPSULE PO SCH ×2 (08:32→20:03)
[2018-03-03] MEDS: SUCRALFATE 1 GM/10 ML SUSPENSION UDCUP PO SCH ×4 (08:32→20:02)
[2018-03-03] MEDS: PIOGLITAZONE HCL 15 MG TABLET PO SCH (08:33)
[2018-03-03] MEDS: FINASTERIDE 5 MG TABLET PO SCH (08:33)
[2018-03-03] MEDS: CALCIUM OYSTER SHELL 250 MG-VIT D3 125 UNITS TABLET PO SCH (16:01)
[2018-03-03 17:44] LABS: GLUCOMETER DEV NAME(LOC) 2WR 1B; GLUCOSE,POINT OF CARE 133 MG/DL (70-110)
[2018-03-03 19:42] VITALS: BP 121/69
[2018-03-03] MEDS: SENNA 187 MG TABLET PO SCH (20:02)
[2018-03-03] MEDS: METOPROLOL SUCCINATE 25 MG ER TABLET PO SCH (20:02)
[2018-03-03] MEDS: QUEtiapine FUMARATE 25 MG TABLET PO SCH (20:02)
[2018-03-03] MEDS: ATORVASTATIN CALCIUM 20 MG TABLET PO SCH (20:02)
[2018-03-03] MEDS: MIRTAZAPINE 15 MG TABLET PO SCH (20:02)
[2018-03-03] MEDS: ALFUZOSIN HCL 10 MG ER TABLET PO SCH (20:03)
[2018-03-03] MEDS: DICLOFENAC SODIUM 1% 100 GM GEL [4GM] TP PRN (20:03)
[2018-03-03 20:30] VITALS: BP 109/60
[2018-03-04 00:02] VITALS: BP 104/63
[2018-03-04] MEDS: DOCUSATE SODIUM 283 MG/5 ML MINI-ENEMA PR SCH (05:05)
[2018-03-04] MEDS: PANTOPRAZOLE SODIUM 40 MG DR TABLET PO SCH ×2 (05:05→16:36)
[2018-03-04 08:19] LABS: GLUCOMETER DEV NAME(LOC) 2WR 2E; GLUCOSE,POINT OF CARE 128 MG/DL (70-110)
[2018-03-04] MEDS: PIOGLITAZONE HCL 15 MG TABLET PO SCH (08:42)
[2018-03-04] MEDS: CARBIDOPA/LEVODOPA 25-100 MG TABLET PO SCH ×3 (08:42→20:09)
[2018-03-04] MEDS: SUCRALFATE 1 GM/10 ML SUSPENSION UDCUP PO SCH ×4 (08:42→20:08)
[2018-03-04] MEDS: DICLOFENAC SODIUM 1% 100 GM GEL [4GM] TP PRN (08:42)
[2018-03-04] MEDS: BENZONATATE 100 MG CAPSULE PO PRN (08:43)
[2018-03-04] MEDS: DOCUSATE SODIUM 250 MG CAPSULE PO SCH ×2 (08:43→20:08)
[2018-03-04] MEDS: FINASTERIDE 5 MG TABLET PO SCH (08:44)
[2018-03-04 08:46] VITALS: BP 129/64
[2018-03-04] MEDS: HYDROCODONE/ACETAMINOPHEN 5-325 MG TABLET PO PRN (08:46)
[2018-03-04 15:52] VITALS: BP 101/66
[2018-03-04] MEDS: CALCIUM OYSTER SHELL 250 MG-VIT D3 125 UNITS TABLET PO SCH (16:36)
[2018-03-04] MEDS: ACETAMINOPHEN 325 MG TABLET PO PRN (16:37)
[2018-03-04] MEDS: ATORVASTATIN CALCIUM 20 MG TABLET PO SCH (20:08)
[2018-03-04] MEDS: SENNA 187 MG TABLET PO SCH (20:09)
[2018-03-04] MEDS: ALFUZOSIN HCL 10 MG ER TABLET PO SCH (20:09)
[2018-03-04] MEDS: QUEtiapine FUMARATE 25 MG TABLET PO SCH (20:09)
[2018-03-04] MEDS: MIRTAZAPINE 15 MG TABLET PO SCH (20:09)
[2018-03-04] MEDS: METOPROLOL SUCCINATE 25 MG ER TABLET PO SCH (20:14)
[2018-03-04 20:15] VITALS: BP 114/59
[2018-03-04 22:19] LABS: GLUCOMETER DEV NAME(LOC) 2WR 1B; GLUCOSE,POINT OF CARE 157 MG/DL (70-110)
[2018-03-05 00:15] VITALS: BP 101/62
[2018-03-05] MEDS: PANTOPRAZOLE SODIUM 40 MG DR TABLET PO SCH ×2 (05:28→16:24)
[2018-03-05] MEDS: DOCUSATE SODIUM 283 MG/5 ML MINI-ENEMA PR SCH (05:39)
[2018-03-05 05:43] LABS: GLUCOMETER DEV NAME(LOC) 2WR 2E; GLUCOSE,POINT OF CARE 121 MG/DL (70-110)
[2018-03-05 08:25] VITALS: BP 130/69
[2018-03-05] MEDS: CARBIDOPA/LEVODOPA 25-100 MG TABLET PO SCH ×3 (08:30→20:34)
[2018-03-05] MEDS: DOCUSATE SODIUM 250 MG CAPSULE PO SCH ×2 (08:30→20:34)
[2018-03-05] MEDS: FINASTERIDE 5 MG TABLET PO SCH (08:30)
[2018-03-05] MEDS: SUCRALFATE 1 GM/10 ML SUSPENSION UDCUP PO SCH ×3 (08:31→20:34)
[2018-03-05] MEDS: PIOGLITAZONE HCL 15 MG TABLET PO SCH (08:31)
[2018-03-05 15:28] VITALS: BP 117/54
[2018-03-05] MEDS: CALCIUM OYSTER SHELL 250 MG-VIT D3 125 UNITS TABLET PO SCH (16:24)
[2018-03-05 17:59] LABS: GLUCOMETER DEV NAME(LOC) 2WR 1B; GLUCOSE,POINT OF CARE 146 MG/DL (70-110)
[2018-03-05] MEDS: ATORVASTATIN CALCIUM 20 MG TABLET PO SCH (20:34)
[2018-03-05] MEDS: MIRTAZAPINE 15 MG TABLET PO SCH (20:34)
[2018-03-05] MEDS: SENNA 187 MG TABLET PO SCH (20:34)
[2018-03-05] MEDS: QUEtiapine FUMARATE 25 MG TABLET PO SCH (20:34)
[2018-03-05] MEDS: METOPROLOL SUCCINATE 25 MG ER TABLET PO SCH (20:34)
[2018-03-05] MEDS: ALFUZOSIN HCL 10 MG ER TABLET PO SCH (20:34)
[2018-03-05 20:36] VITALS: BP 113/59
[2018-03-06 00:26] VITALS: BP 107/57
[2018-03-06] MEDS: DOCUSATE SODIUM 283 MG/5 ML MINI-ENEMA PR SCH (05:26)
[2018-03-06 05:55] LABS: GLUCOMETER DEV NAME(LOC) 2WR 1B; GLUCOSE,POINT OF CARE 106 MG/DL (70-110)
[2018-03-06] MEDS: PANTOPRAZOLE SODIUM 40 MG DR TABLET PO SCH ×2 (06:27→16:34)
[2018-03-06 07:29] VITALS: BP 114/68
[2018-03-06] MEDS: DOCUSATE SODIUM 250 MG CAPSULE PO SCH ×2 (08:21→20:17)
[2018-03-06] MEDS: SUCRALFATE 1 GM/10 ML SUSPENSION UDCUP PO SCH ×3 (08:21→20:17)
[2018-03-06] MEDS: FINASTERIDE 5 MG TABLET PO SCH (08:21)
[2018-03-06] MEDS: PIOGLITAZONE HCL 15 MG TABLET PO SCH (08:21)
[2018-03-06] MEDS: CARBIDOPA/LEVODOPA 25-100 MG TABLET PO SCH ×3 (08:22→20:17)
[2018-03-06 15:46] VITALS: BP 141/85
[2018-03-06] MEDS: CALCIUM OYSTER SHELL 250 MG-VIT D3 125 UNITS TABLET PO SCH (17:28)
[2018-03-06] MEDS: ACETAMINOPHEN 325 MG TABLET PO PRN (17:33)
[2018-03-06] MEDS: INSULIN LISPRO 100 UNITS/ML SQ PRN (17:33)
[2018-03-06 18:34] LABS: GLUCOMETER DEV NAME(LOC) 2WR 1B; GLUCOSE,POINT OF CARE 162 MG/DL (70-110)
[2018-03-06 20:16] VITALS: BP 115/47
[2018-03-06] MEDS: ATORVASTATIN CALCIUM 20 MG TABLET PO SCH (20:16)
[2018-03-06] MEDS: ALFUZOSIN HCL 10 MG ER TABLET PO SCH (20:16)
[2018-03-06] MEDS: METOPROLOL SUCCINATE 25 MG ER TABLET PO SCH (20:17)
[2018-03-06] MEDS: QUEtiapine FUMARATE 25 MG TABLET PO SCH (20:17)
[2018-03-06] MEDS: MIRTAZAPINE 15 MG TABLET PO SCH (20:17)
[2018-03-06] MEDS: SENNA 187 MG TABLET PO SCH (20:18)
[2018-03-07 01:07] VITALS: BP 107/50
[2018-03-07] MEDS ORDERED: PANT40TA25 PO (04:20)
[2018-03-07] MEDS ORDERED: QUET25TA PO (04:20)
[2018-03-07] MEDS ORDERED: ATOR20TA86 PO (04:20)
[2018-03-07] MEDS ORDERED: SUCR1TAB PO (04:20)
[2018-03-07] MEDS ORDERED: OSCD250 PO (04:20)
[2018-03-07] MEDS ORDERED: FINA5TAB41 PO (04:21)
[2018-03-07] MEDS ORDERED: METO25XL PO (04:21)
[2018-03-07 06:19] LABS: GLUCOMETER DEV NAME(LOC) 2WR 1B; GLUCOSE,POINT OF CARE 124 MG/DL (70-110)
[2018-03-07] MEDS: PANTOPRAZOLE SODIUM 40 MG DR TABLET PO SCH (07:26)
[2018-03-07] MEDS: DOCUSATE SODIUM 283 MG/5 ML MINI-ENEMA PR SCH (07:26)
[2018-03-07 08:10] VITALS: BP 149/74
[2018-03-07] MEDS: CARBIDOPA/LEVODOPA 25-100 MG TABLET PO SCH (08:44)
[2018-03-07] MEDS: SUCRALFATE 1 GM/10 ML SUSPENSION UDCUP PO SCH (08:44)
[2018-03-07] MEDS: DOCUSATE SODIUM 250 MG CAPSULE PO SCH (08:45)
[2018-03-07] MEDS: PIOGLITAZONE HCL 15 MG TABLET PO SCH (08:45)
[2018-03-07] MEDS: FINASTERIDE 5 MG TABLET PO SCH (08:46)
[2018-03-07 12:29] LABS: GLUCOMETER DEV NAME(LOC) 2WR 2E; GLUCOSE,POINT OF CARE 170 MG/DL (70-110)
== END 2018-03-07 11:40 | disposition home health service (06) | DRG 56 ==
LOC: 2WR 10:57
PROVIDERS: ADMIT Physical Medicine & Rehabilitation; ATTEND Physical Medicine & Rehabilitation
DX: G20 Parkinson's disease (principal); E43 Unspecified severe protein-calorie malnutrition; N17.9 Acute kidney failure, unspecified; K59.2 Neurogenic bowel, not elsewhere classified; K20.9 Esophagitis, unspecified; K44.9 Diaphragmatic hernia without obstruction or gangrene; E11.9 Type 2 diabetes mellitus without complications; R53.81 Other malaise; D63.8 Anemia in other chronic diseases classified elsewhere; E78.5 Hyperlipidemia, unspecified; I10 Essential (primary) hypertension; F32.9 Major depressive disorder, single episode, unspecified; D50.9 Iron deficiency anemia, unspecified; F02.80 Dementia in other diseases classified elsewhere, unspecified severity, without behavioral disturbance, psychotic disturbance, mood disturbance, and anxiety; G47.31 Primary central sleep apnea; G47.33 Obstructive sleep apnea (adult) (pediatric); G89.29 Other chronic pain; K59.00 Constipation, unspecified; N31.9 Neuromuscular dysfunction of bladder, unspecified; R13.10 Dysphagia, unspecified; M54.5 Low back pain; N40.1 Benign prostatic hyperplasia with lower urinary tract symptoms; N39.498 Other specified urinary incontinence; Z91.19 Patient's noncompliance with other medical treatment and regimen; Z85.46 Personal history of malignant neoplasm of prostate; Z68.21 Body mass index [BMI] 21.0-21.9, adult
CPT/HCPCS: 83036; 83540; 84443; 85651; 87081; 92507; 92508; 92526; 92610; 94660; 94760; 97110; 97112; 97116; 97150; 97163; 97167; 97530; 97535; 99366

== ENCOUNTER → 2018-05-02 | Day surgery (SDC) | payer MEDICARE, OTHER ==
[~2018-05-02] VITALS: Ht 165.1 cm; Wt 60.0 kg
[~2018-05-02] MED LIST changes: -ATOR10TA84 PO; +ATOR20TA86 PO; -AUD NEB; -BENZ-51 PO; -BISA10S PR; -CALC-1220 PO; -CLON-570 PO; +ESCI10TA PO; +FINA5TAB41 PO; -INSU100V SQ; -IPRNEB IH; +METO25XL PO; -METO5TAB95 PO; +OSCD250 PO; +QUET25TA PO; +SODIUM CHLORIDE 0.9% 1,000 ML IV ONE; -SUCR1ORA5 PO; +SUCR1TAB PO
[2018-05-02 11:58] LABS: GLUCOMETER DEV NAME(LOC) SDS 5; GLUCOSE,POINT OF CARE 118 MG/DL (70-110)
== END | disposition home or self-care (01) ==
LOC: SURGERY 10:42
PROVIDERS: ATTEND Internal Medicine Gastroenterology
DX: K21.0 Gastro-esophageal reflux disease with esophagitis (principal); I10 Essential (primary) hypertension; E11.9 Type 2 diabetes mellitus without complications; D50.9 Iron deficiency anemia, unspecified; G20 Parkinson's disease; J44.9 Chronic obstructive pulmonary disease, unspecified; F03.90 Unspecified dementia, unspecified severity, without behavioral disturbance, psychotic disturbance, mood disturbance, and anxiety; E46 Unspecified protein-calorie malnutrition; E78.00 Pure hypercholesterolemia, unspecified; M19.90 Unspecified osteoarthritis, unspecified site; Z68.22 Body mass index [BMI] 22.0-22.9, adult; Z86.73 Personal history of transient ischemic attack (TIA), and cerebral infarction without residual deficits; Z85.46 Personal history of malignant neoplasm of prostate; Z79.84 Long term (current) use of oral hypoglycemic drugs; Z79.82 Long term (current) use of aspirin; Z72.89 Other problems related to lifestyle; Z86.59 Personal history of other mental and behavioral disorders; Z88.8 Allergy status to other drugs, medicaments and biological substances; Z79.899 Other long term (current) drug therapy; Z82.0 Family history of epilepsy and other diseases of the nervous system; Z81.8 Family history of other mental and behavioral disorders; Z82.61 Family history of arthritis; Z84.89 Family history of other specified conditions; Z80.41 Family history of malignant neoplasm of ovary
CPT/HCPCS: 43239; 82962; 88305; 88312; 88313; 93005; C1769; J7030

== ENCOUNTER 2018-08-16 01:24 | Inpatient (IN) | payer MEDICARE, OTHER ==
[~2018-08-16] VITALS: Ht 172.7 cm; Wt 55.4 kg
[~2018-08-16 01:24] MED LIST changes: -FINA5TAB41 PO; -METO25XL PO; -OSCD250 PO; -SODIUM CHLORIDE 0.9% 1,000 ML IV ONE
[2018-08-16] MEDS ORDERED: SUCR1TAB PO (02:28)
[2018-08-16 03:33] LABS: BASOPHILS % (AUTO) 0.1 % (0.0-2.0); EOSINOPHILS % (AUTO) 0 % (1.0-6.0); HEMATOCRIT 37.2 % (41-53); HEMOGLOBIN 11.6 g/dL (13.5-17.5); LYMPHOCYTES # (AUTO) 0.9 K/uL (1.0-4.8); LYMPHOCYTES % (AUTO) 9.2 % (22.0-44.0); MEAN CORPUSCULAR HEMOGLOBIN 23.6 pg (26.0-34.0); MEAN CORPUSCULAR HGB CONC 31.2 G/dL (31.0-37.0); MEAN CORPUSCULAR VOLUME 76 fL (80-100); MONOCYTES # (AUTO) 0.5 K/uL (0.1-1.0); MONOCYTES % (AUTO) 4.6 % (2.0-9.0); NEUTROPHILS # (AUTO) 8.8 K/uL (1.8-7.7); RED BLOOD CELL COUNT(AUTO) 4.92 MIL/uL (4.50-5.90); RED CELL DISTRIBUTION WIDTH 18.5 % (11.5-14.5)
[2018-08-16 03:35] LABS: NEUTROPHILS % (AUTO) 86.1 % (40.0-70.0)
[2018-08-16 03:36] LABS: INR 1.1 (0.9-1.1); PROTHROMBIN TIME 11.2 SEC (9.4-11.6)
[2018-08-16 03:43] LABS: ALBUMIN 2.9 g/dL (3.4-5.0); BILIRUBIN,TOTAL 0.6 mg/dL (0.1-1.0); CALCIUM, TOTAL 9.1 mg/dL (8.8-10.5); CREATININE 1.7 mg/dL (0.60-1.30); LACTIC ACID 1.8 mmol/L (0.4-2.0); POTASSIUM 3.6 mmol/L (3.5-5.1); TOTAL PROTEIN, SERUM 7.1 g/dL (6.4-8.2)
[2018-08-16 03:51] LABS: APPEARANCE,URINE TURBID (CLEAR); BILIRUBIN,URINE NEGATIVE (NEGATIVE); GLUCOSE, URINE (UA) NEGATIVE (NEGATIVE); KETONES,URINE TRACE mg/dL (NEGATIVE); LEUKOCYTE ESTERASE ,URINE LARGE (NEGATIVE); NITRATE,URINE NEGATIVE (NEGATIVE); OCCULT BLOOD,URINE NEGATIVE (NEGATIVE); PH,URINE 8.5 (5.0-8.0); PROTEIN,URINE SEE CONFIRM (NEGATIVE); UROBILINOGEN,URINE 0.2 mg/dL (<=1.0)
[2018-08-16 03:53] LABS: PLATELET COUNT (AUTO) 177 K/uL (150-450)
[2018-08-16] MEDS ORDERED: SODIUM CHLORIDE 0.9% 1,000 ML IV ONE ×2 (04:00→05:00)
[2018-08-16 04:07] LABS: AMPHET/METH SCREEN,URINE NEGATIVE (NEGATIVE); BARBITURATE SCREEN, URINE NEGATIVE (NEGATIVE); BENZODIAZEPINES SCREEN,URINE NEGATIVE (NEGATIVE); CANNABINOID SCREEN,URINE NEGATIVE (NEGATIVE); COCAINE SCREEN,URINE NEGATIVE (NEGATIVE); METHADONE SCREEN, URINE NEGATIVE (NEGATIVE); OPIATE SCREEN,URINE NEGATIVE (NEGATIVE); PHENCYCLIDINE SCREEN,URINE NEGATIVE (NEGATIVE)
[2018-08-16 04:11] LABS: BACTERIA,URINE Many /HPF (None Seen); SQUAMOUS EPITHELIAL CELL,UR Rare /LPF (None Seen); WBC,URINE 51-100 /HPF (0-5)
[2018-08-16 04:12] LABS: SULFOSALICYLIC ACID,URINE 2+ (Negative); TRIPLE PHOSPHATE CRYSTAL,UR Moderate /LPF (None Seen)
[2018-08-16] MEDS ORDERED: CefTRIAXone 1 GM/DEXTROSE 50 ML IV ONE (05:00)
[2018-08-16] MEDS ORDERED: ACETAMINOPHEN 325 MG TABLET PO PRN (06:30)
[2018-08-16] MEDS ORDERED: 0.9% SODIUM CHLORIDE 10 ML SYRINGE IVP PRN ×3 (06:30→12:45)
[2018-08-16] MEDS ORDERED: ONDANSETRON HCL 4 MG/2 ML VIAL IVP PRN ×2 (06:30→12:45)
[2018-08-16 07:13] LABS: SODIUM,URINE RANDOM 36 mmol/l (20-110)
[2018-08-16 07:17] LABS: OSMOLALITY,URINE 643 mOS/kg (50-1200)
[2018-08-16] MEDS ORDERED: CARBIDOPA/LEVODOPA 25-100 MG TABLET PO ONE (09:30)
[2018-08-16 11:30] VITALS: BP 135/88
[2018-08-16] MEDS ORDERED: ALBUTEROL SULFATE 2.5 MG/0.5 ML NEB SOLUTION NEB PRN (12:45)
[2018-08-16] MEDS ORDERED: IPRATROPIUM BROMIDE 0.5 MG/2.5 ML NEB SOLUTION NEB PRN (12:45)
[2018-08-16] MEDS ORDERED: SODIUM CHLORIDE 0.9% 250 ML IV ONE (13:26)
[2018-08-16] MEDS: WATER FOR INJECTION,STERILE 500 ML in DEXTROSE 5%-WATER 500 ML IV SCH (13:35)
[2018-08-16] MEDS: INSULIN REGULAR, HUMAN 100 UNITS/ML SQ PRN (14:03)
[2018-08-16] MEDS: PANTOPRAZOLE SODIUM 40 MG DR TABLET PO SCH (14:32)
[2018-08-16] MEDS: HEPARIN SODIUM,PORCINE 5,000 UNITS/ML VIAL SQ SCH (14:32)
[2018-08-16] MEDS: CARBIDOPA/LEVODOPA 25-100 MG TABLET PO SCH ×3 (14:33→20:09)
[2018-08-16 14:59] LABS: GLUCOSE,POINT OF CARE 180 MG/DL (70-110)
[2018-08-16 16:00] VITALS: BP 122/77
[2018-08-16 17:18] LABS: ANION GAP 7 mmol/L (8-16); CALCIUM, TOTAL 8.8 mg/dL (8.8-10.5); CARBON DIOXIDE 29 mmol/L (22-29); CHLORIDE 132 mmol/L (98-107); CREATININE 1.17 mg/dL (0.60-1.30); GLUCOSE,RANDOM 193 mg/dL (70-110); POTASSIUM 3.3 mmol/L (3.5-5.1); UREA NITROGEN, BLOOD 45 mg/dL (7-18)
[2018-08-16 17:21] LABS: SODIUM SERUM 168 mmol/L (136-145)
[2018-08-16 17:22] LABS: GLOMERULAR FILTR. RATE CALC > 60 mL/min (>60)
[2018-08-16 18:04] LABS: GLUCOSE,POINT OF CARE 177 MG/DL (70-110)
[2018-08-16 20:00] VITALS: BP 125/74
[2018-08-16] MEDS: DOCUSATE SODIUM 250 MG CAPSULE PO SCH (20:09)
[2018-08-16] MEDS: QUEtiapine FUMARATE 25 MG TABLET PO SCH (20:09)
[2018-08-16] MEDS: ALFUZOSIN HCL 10 MG ER TABLET PO SCH (20:11)
[2018-08-17] VITALS (7 sets, daily range): BP systolic 119–133; BP diastolic 66–79
[2018-08-17] MEDS: HEPARIN SODIUM,PORCINE 5,000 UNITS/ML VIAL SQ SCH (01:10)
[2018-08-17 02:03] LABS: GLUCOSE,POINT OF CARE 141 MG/DL (70-110)
[2018-08-17] MEDS: WATER FOR INJECTION,STERILE 500 ML in DEXTROSE 5%-WATER 500 ML IV SCH ×2 (02:44→14:04)
[2018-08-17] MEDS ORDERED: SODIUM CHLORIDE 0.9% 100 ML ONE (05:19)
[2018-08-17] MEDS: CefTRIAXone 1 GM/DEXTROSE 50 ML IV SCH (05:23)
[2018-08-17] MEDS: INSULIN REGULAR, HUMAN 100 UNITS/ML SQ PRN ×2 (05:24→17:41)
[2018-08-17] MEDS: PANTOPRAZOLE SODIUM 40 MG DR TABLET PO SCH (05:25)
[2018-08-17 05:48] LABS: BASOPHILS % (AUTO) 0.1 % (0.0-2.0); EOSINOPHILS % (AUTO) 0.1 % (1.0-6.0); HEMATOCRIT 36.3 % (41-53); HEMOGLOBIN 11.2 g/dL (13.5-17.5); LYMPHOCYTES # (AUTO) 0.9 K/uL (1.0-4.8); LYMPHOCYTES % (AUTO) 11.4 % (22.0-44.0); MEAN CORPUSCULAR HEMOGLOBIN 23.7 pg (26.0-34.0); MEAN CORPUSCULAR HGB CONC 30.8 G/dL (31.0-37.0); MEAN CORPUSCULAR VOLUME 77 fL (80-100); MONOCYTES # (AUTO) 0.4 K/uL (0.1-1.0); MONOCYTES % (AUTO) 4.4 % (2.0-9.0); NEUTROPHILS # (AUTO) 6.9 K/uL (1.8-7.7); PLATELET COUNT (AUTO) 129 K/uL (150-450); RED BLOOD CELL COUNT(AUTO) 4.71 MIL/uL (4.50-5.90); RED CELL DISTRIBUTION WIDTH 18.8 % (11.5-14.5)
[2018-08-17 06:01] LABS: ALANINE AMINOTRANSFERASE 8 U/L (12-78); ALBUMIN 2.6 g/dL (3.4-5.0); ALKALINE PHOSPHATASE 71 U/L (46-116); ANION GAP 10 mmol/L (8-16); ASPARTATE AMINOTRANSFERASE 27 U/L (15-37); BILIRUBIN,TOTAL 0.5 mg/dL (0.1-1.0); CALCIUM, TOTAL 9.1 mg/dL (8.8-10.5); CARBON DIOXIDE 28 mmol/L (22-29); CHLORIDE 126 mmol/L (98-107); CREATININE 1.08 mg/dL (0.60-1.30); GLUCOSE,RANDOM 165 mg/dL (70-110); POTASSIUM 3.3 mmol/L (3.5-5.1); TOTAL PROTEIN, SERUM 6.5 g/dL (6.4-8.2); UREA NITROGEN, BLOOD 37 mg/dL (7-18)
[2018-08-17 06:27] LABS: GLOMERULAR FILTR. RATE CALC > 60 mL/min (>60); SODIUM SERUM 164 mmol/L (136-145)
[2018-08-17 06:54] LABS: GLUCOSE,POINT OF CARE 156 MG/DL (70-110)
[2018-08-17] MEDS: PANTOPRAZOLE SODIUM 40 MG/VIAL IVP SCH (08:51)
[2018-08-17] MEDS: DOCUSATE SODIUM 250 MG CAPSULE PO SCH ×2 (08:51→20:39)
[2018-08-17] MEDS: CARBIDOPA/LEVODOPA 25-100 MG TABLET PO SCH ×4 (09:28→20:40)
[2018-08-17] MEDS ORDERED: HEPARIN SODIUM,PORCINE 5,000 UNITS/ML VIAL IVP ONE (09:45)
[2018-08-17] MEDS ORDERED: HEPARIN SODIUM,PORCINE 5,000 UNITS/ML VIAL IVP PRN (09:45)
[2018-08-17] MEDS ORDERED: POTASSIUM CHLORIDE 10% 40 MEQ/30 ML LIQUID UDCUP NG ONE (10:30)
[2018-08-17] MEDS: HEPARIN SODIUM 25000 UNITS/D5W 250 ML IV PRN (11:14)
[2018-08-17 13:09] LABS: GLUCOSE,POINT OF CARE 183 MG/DL (70-110)
[2018-08-17 13:29] LABS: CHOL/HDL RATIO 2.5 (4.2-7.3); CHOLESTEROL 147 mg/dL (131-200); HDL CHOLESTEROL 59 mg/dL (40-60); LDL CHOL (CALC.) 59 mg/dL (0-130); TRIGLYCERIDES 145 mg/dL (15-150)
[2018-08-17 18:44] LABS: GLUCOSE,POINT OF CARE 157 MG/DL (70-110)
[2018-08-17] MEDS: HYDROCODONE/ACETAMINOPHEN 5-325 MG TABLET PO PRN (19:35)
[2018-08-17] MEDS: QUEtiapine FUMARATE 25 MG TABLET PO SCH (20:40)
[2018-08-17] MEDS: ALFUZOSIN HCL 10 MG ER TABLET PO SCH (20:40)
[2018-08-18] VITALS: BP 120/65
[2018-08-18] MEDS: WATER FOR INJECTION,STERILE 500 ML in DEXTROSE 5%-WATER 500 ML IV SCH ×3 (02:05→20:48)
[2018-08-18 02:19] LABS: GLUCOSE,POINT OF CARE 123 MG/DL (70-110)
[2018-08-18 04:04] VITALS: BP 110/70
[2018-08-18] MEDS: CefTRIAXone 1 GM/DEXTROSE 50 ML IV SCH (05:04)
[2018-08-18] MEDS: INSULIN REGULAR, HUMAN 100 UNITS/ML SQ PRN ×2 (05:05→12:12)
[2018-08-18 07:09] LABS: ANION GAP 7 mmol/L (8-16); CALCIUM, TOTAL 8.5 mg/dL (8.8-10.5); CARBON DIOXIDE 28 mmol/L (22-29); CHLORIDE 117 mmol/L (98-107); GLUCOSE,RANDOM 175 mg/dL (70-110); POTASSIUM 3.4 mmol/L (3.5-5.1); SODIUM SERUM 152 mmol/L (136-145); UREA NITROGEN, BLOOD 21 mg/dL (7-18)
[2018-08-18 07:11] LABS: GLOMERULAR FILTR. RATE CALC > 60 mL/min (>60)
[2018-08-18 07:20] LABS: ALANINE AMINOTRANSFERASE 15 U/L (12-78); ALBUMIN 2.2 g/dL (3.4-5.0); ALKALINE PHOSPHATASE 66 U/L (46-116); ASPARTATE AMINOTRANSFERASE 29 U/L (15-37); BILIRUBIN,TOTAL 0.4 mg/dL (0.1-1.0); TOTAL PROTEIN, SERUM 5.5 g/dL (6.4-8.2)
[2018-08-18 07:29] LABS: BASOPHILS % (AUTO) 0.2 % (0.0-2.0); EOSINOPHILS % (AUTO) 0.8 % (1.0-6.0); MONOCYTES # (AUTO) 0.4 K/uL (0.1-1.0)
[2018-08-18 07:31] LABS: HEMOGLOBIN 9.5 g/dL (13.5-17.5); LYMPHOCYTES % (AUTO) 13.8 % (22.0-44.0); MEAN CORPUSCULAR HEMOGLOBIN 23.8 pg (26.0-34.0); MEAN CORPUSCULAR HGB CONC 31.6 G/dL (31.0-37.0); MEAN CORPUSCULAR VOLUME 75 fL (80-100); MONOCYTES % (AUTO) 5.1 % (2.0-9.0); NEUTROPHILS # (AUTO) 5.9 K/uL (1.8-7.7); NEUTROPHILS % (AUTO) 80.1 % (40.0-70.0); PLATELET COUNT (AUTO) 115 K/uL (150-450); RED BLOOD CELL COUNT(AUTO) 3.99 MIL/uL (4.50-5.90); RED CELL DISTRIBUTION WIDTH 18.1 % (11.5-14.5)
[2018-08-18 08:00] VITALS: BP 115/66
[2018-08-18] MEDS ORDERED: POTASSIUM CHLORIDE 20 MEQ ER TABLET PO ONE (08:30)
[2018-08-18] MEDS: DOCUSATE SODIUM 250 MG CAPSULE PO SCH ×2 (08:52→20:48)
[2018-08-18] MEDS: CARBIDOPA/LEVODOPA 25-100 MG TABLET PO SCH ×4 (08:52→20:49)
[2018-08-18] MEDS: PANTOPRAZOLE SODIUM 40 MG/VIAL IVP SCH (08:52)
[2018-08-18 11:49] LABS: GLUCOSE,POINT OF CARE 164 MG/DL (70-110)
[2018-08-18 12:00] VITALS: BP 121/66
[2018-08-18] MEDS ORDERED: SODIUM CHLORIDE 0.9% 250 ML IV ONE ×2 (12:04→20:46)
[2018-08-18] MEDS: HEPARIN SODIUM 25000 UNITS/D5W 250 ML IV PRN (12:17)
[2018-08-18 16:00] VITALS: BP 128/70
[2018-08-18 18:49] LABS: GLUCOSE,POINT OF CARE 156 MG/DL (70-110)
[2018-08-18 18:58] LABS: GLUCOSE,POINT OF CARE 144 MG/DL (70-110)
[2018-08-18 20:00] VITALS: BP 136/77
[2018-08-18] MEDS: QUEtiapine FUMARATE 25 MG TABLET PO SCH (20:48)
[2018-08-18] MEDS: ALFUZOSIN HCL 10 MG ER TABLET PO SCH (20:49)
[2018-08-18] MEDS: HEPARIN SODIUM,PORCINE 5,000 UNITS/ML VIAL IVP PRN (22:16)
[2018-08-19] VITALS (7 sets, daily range): BP systolic 108–139; BP diastolic 57–102
[2018-08-19] MEDS: INSULIN REGULAR, HUMAN 100 UNITS/ML SQ PRN ×2 (00:49→12:09)
[2018-08-19] MEDS: CefTRIAXone 1 GM/DEXTROSE 50 ML IV SCH (05:37)
[2018-08-19 06:00] LABS: ALANINE AMINOTRANSFERASE 9 U/L (12-78); ALBUMIN 2.2 g/dL (3.4-5.0); ALKALINE PHOSPHATASE 70 U/L (46-116); ANION GAP 6 mmol/L (8-16); ASPARTATE AMINOTRANSFERASE 31 U/L (15-37); BILIRUBIN,TOTAL 0.5 mg/dL (0.1-1.0); CALCIUM, TOTAL 8.6 mg/dL (8.8-10.5); CARBON DIOXIDE 29 mmol/L (22-29); CHLORIDE 111 mmol/L (98-107); CREATININE 0.78 mg/dL (0.60-1.30); GLOMERULAR FILTR. RATE CALC > 60 mL/min (>60); GLUCOSE,RANDOM 158 mg/dL (70-110); PHOSPHORUS 3.1 mg/dL (2.5-4.9); POTASSIUM 3.5 mmol/L (3.5-5.1); SODIUM SERUM 146 mmol/L (136-145); TOTAL PROTEIN, SERUM 5.8 g/dL (6.4-8.2); UREA NITROGEN, BLOOD 15 mg/dL (7-18)
[2018-08-19] MEDS: HEPARIN SODIUM,PORCINE 5,000 UNITS/ML VIAL IVP PRN ×2 (06:05→21:40)
[2018-08-19] MEDS: WATER FOR INJECTION,STERILE 500 ML in DEXTROSE 5%-WATER 500 ML IV SCH (06:31)
[2018-08-19 08:10] LABS: GLUCOSE,POINT OF CARE 135 MG/DL (70-110)
[2018-08-19 08:10] LABS: GLUCOSE,POINT OF CARE 157 MG/DL (70-110)
[2018-08-19] MEDS: DOCUSATE SODIUM 250 MG CAPSULE PO SCH ×2 (09:32→21:35)
[2018-08-19] MEDS: CARBIDOPA/LEVODOPA 25-100 MG TABLET PO SCH ×4 (09:32→21:35)
[2018-08-19] MEDS: PANTOPRAZOLE SODIUM 40 MG/VIAL IVP SCH (10:41)
[2018-08-19] MEDS: ACETAMINOPHEN 325 MG TABLET PO PRN ×2 (10:42→16:11)
[2018-08-19] MEDS: HEPARIN SODIUM 25000 UNITS/D5W 250 ML IV PRN (16:12)
[2018-08-19 17:54] LABS: GLUCOSE,POINT OF CARE 164 MG/DL (70-110)
[2018-08-19] MEDS: QUEtiapine FUMARATE 25 MG TABLET PO SCH (21:35)
[2018-08-19] MEDS: ALFUZOSIN HCL 10 MG ER TABLET PO SCH (21:35)
[2018-08-19 22:49] LABS: GLUCOSE,POINT OF CARE 118 MG/DL (70-110)
[2018-08-20 01:14] LABS: GLUCOMETER DEV NAME(LOC) 5N.1; GLUCOSE,POINT OF CARE 129 MG/DL (70-110)
[2018-08-20 05:01] VITALS: BP 127/81
[2018-08-20] MEDS: CefTRIAXone 1 GM/DEXTROSE 50 ML IV SCH (06:01)
[2018-08-20] MEDS: INSULIN REGULAR, HUMAN 100 UNITS/ML SQ PRN ×3 (06:09→17:28)
[2018-08-20 06:23] LABS: ANION GAP 4 mmol/L (8-16); CALCIUM, TOTAL 8.4 mg/dL (8.8-10.5); CARBON DIOXIDE 30 mmol/L (22-29); CHLORIDE 109 mmol/L (98-107); GLUCOSE,RANDOM 134 mg/dL (70-110); POTASSIUM 3.4 mmol/L (3.5-5.1); SODIUM SERUM 143 mmol/L (136-145); UREA NITROGEN, BLOOD 16 mg/dL (7-18)
[2018-08-20 06:52] LABS: BASOPHILS % (AUTO) 0.3 % (0.0-2.0); EOSINOPHILS % (AUTO) 0.6 % (1.0-6.0); HEMATOCRIT 30.4 % (41-53); HEMOGLOBIN 9.7 g/dL (13.5-17.5); LYMPHOCYTES # (AUTO) 1.1 K/uL (1.0-4.8); LYMPHOCYTES % (AUTO) 16.7 % (22.0-44.0); MEAN CORPUSCULAR HGB CONC 31.9 G/dL (31.0-37.0); MEAN CORPUSCULAR VOLUME 75 fL (80-100); MONOCYTES # (AUTO) 0.4 K/uL (0.1-1.0); MONOCYTES % (AUTO) 5.8 % (2.0-9.0); NEUTROPHILS # (AUTO) 5.1 K/uL (1.8-7.7); NEUTROPHILS % (AUTO) 76.6 % (40.0-70.0); PLATELET COUNT (AUTO) 130 K/uL (150-450); RED BLOOD CELL COUNT(AUTO) 4.04 MIL/uL (4.50-5.90); RED CELL DISTRIBUTION WIDTH 17.7 % (11.5-14.5)
[2018-08-20 07:02] LABS: GLOMERULAR FILTR. RATE CALC > 60 mL/min (>60)
[2018-08-20 07:11] VITALS: BP 105/58
[2018-08-20 07:34] LABS: GLUCOMETER DEV NAME(LOC) 5N.1; GLUCOSE,POINT OF CARE 153 MG/DL (70-110)
[2018-08-20 08:19] LABS: ALANINE AMINOTRANSFERASE 16 U/L (12-78); ALBUMIN 2.2 g/dL (3.4-5.0); ALKALINE PHOSPHATASE 78 U/L (46-116); ASPARTATE AMINOTRANSFERASE 37 U/L (15-37); BILIRUBIN,TOTAL 0.3 mg/dL (0.1-1.0); TOTAL PROTEIN, SERUM 5.7 g/dL (6.4-8.2)
[2018-08-20] MEDS ORDERED: POTASSIUM CHLORIDE 20 MEQ ER TABLET PO ONE (09:15)
[2018-08-20] MEDS ORDERED: POTASSIUM CHLORIDE 10% 40 MEQ/30 ML LIQUID UDCUP NG ONE (10:15)
[2018-08-20 11:21] VITALS: BP 116/52
[2018-08-20] MEDS: PANTOPRAZOLE SODIUM 40 MG/VIAL IVP SCH (11:53)
[2018-08-20] MEDS: CARBIDOPA/LEVODOPA 25-100 MG TABLET PO SCH ×4 (11:53→21:40)
[2018-08-20 15:06] VITALS: BP 131/90
[2018-08-20 15:54] LABS: GLUCOMETER DEV NAME(LOC) 5N.2; GLUCOSE,POINT OF CARE 183 MG/DL (70-110)
[2018-08-20 20:15] VITALS: BP 134/72
[2018-08-20] MEDS: QUEtiapine FUMARATE 25 MG TABLET PO SCH (20:43)
[2018-08-20] MEDS: DOCUSATE SODIUM 250 MG CAPSULE NG SCH (20:43)
[2018-08-20] MEDS: ALFUZOSIN HCL 10 MG ER TABLET PO SCH (21:40)
[2018-08-20 23:14] LABS: GLUCOMETER DEV NAME(LOC) 5N.1; GLUCOSE,POINT OF CARE 171 MG/DL (70-110)
[2018-08-21 00:45] VITALS: BP 128/64
[2018-08-21] MEDS: CefTRIAXone 1 GM/DEXTROSE 50 ML IV SCH (05:42)
[2018-08-21] MEDS: INSULIN REGULAR, HUMAN 100 UNITS/ML SQ PRN ×4 (05:47→22:13)
[2018-08-21 06:24] LABS: GLUCOMETER DEV NAME(LOC) 5N.2; GLUCOSE,POINT OF CARE 164 MG/DL (70-110)
[2018-08-21 06:24] LABS: GLUCOMETER DEV NAME(LOC) 5N.2; GLUCOSE,POINT OF CARE 124 MG/DL (70-110)
[2018-08-21 07:09] LABS: BASOPHILS % (AUTO) 0.2 % (0.0-2.0); EOSINOPHILS % (AUTO) 0.4 % (1.0-6.0); HEMATOCRIT 28.3 % (41-53); HEMOGLOBIN 9.3 g/dL (13.5-17.5); LYMPHOCYTES % (AUTO) 14.2 % (22.0-44.0); MEAN CORPUSCULAR HEMOGLOBIN 24.6 pg (26.0-34.0); MEAN CORPUSCULAR VOLUME 74 fL (80-100); MONOCYTES # (AUTO) 0.5 K/uL (0.1-1.0); MONOCYTES % (AUTO) 6.7 % (2.0-9.0); NEUTROPHILS # (AUTO) 5.5 K/uL (1.8-7.7); NEUTROPHILS % (AUTO) 78.5 % (40.0-70.0); PLATELET COUNT (AUTO) 130 K/uL (150-450); RED BLOOD CELL COUNT(AUTO) 3.81 MIL/uL (4.50-5.90); RED CELL DISTRIBUTION WIDTH 17.8 % (11.5-14.5)
[2018-08-21 07:47] LABS: ALANINE AMINOTRANSFERASE 10 U/L (12-78); ALBUMIN 2.2 g/dL (3.4-5.0); ALKALINE PHOSPHATASE 85 U/L (46-116); ANION GAP 6 mmol/L (8-16); ASPARTATE AMINOTRANSFERASE 38 U/L (15-37); BILIRUBIN,TOTAL 0.2 mg/dL (0.1-1.0); CALCIUM, TOTAL 8.6 mg/dL (8.8-10.5); CARBON DIOXIDE 27 mmol/L (22-29); CHLORIDE 109 mmol/L (98-107); GLOMERULAR FILTR. RATE CALC > 60 mL/min (>60); GLUCOSE,RANDOM 162 mg/dL (70-110); PHOSPHORUS 2.9 mg/dL (2.5-4.9); POTASSIUM 4.4 mmol/L (3.5-5.1); SODIUM SERUM 142 mmol/L (136-145); TOTAL PROTEIN, SERUM 5.5 g/dL (6.4-8.2); UREA NITROGEN, BLOOD 14 mg/dL (7-18)
[2018-08-21 08:29] VITALS: BP 129/54
[2018-08-21] MEDS: PANTOPRAZOLE SODIUM 40 MG/VIAL IVP SCH (10:12)
[2018-08-21] MEDS: DOCUSATE SODIUM 250 MG CAPSULE NG SCH (10:13)
[2018-08-21] MEDS: CARBIDOPA/LEVODOPA 25-100 MG TABLET PO SCH ×4 (10:13→21:48)
[2018-08-21] MEDS: HEPARIN SODIUM,PORCINE 5,000 UNITS/ML VIAL IVP PRN (10:14)
[2018-08-21 11:49] VITALS: BP 141/81
[2018-08-21 13:19] LABS: GLUCOMETER DEV NAME(LOC) 5N.1; GLUCOSE,POINT OF CARE 126 MG/DL (70-110)
[2018-08-21 16:02] VITALS: BP 108/64
[2018-08-21 18:14] LABS: GLUCOMETER DEV NAME(LOC) 5N.2; GLUCOSE,POINT OF CARE 157 MG/DL (70-110)
[2018-08-21 20:06] VITALS: BP 103/68
[2018-08-21] MEDS: DOCUSATE SODIUM 250 MG CAPSULE PO SCH (21:47)
[2018-08-21] MEDS: ALFUZOSIN HCL 10 MG ER TABLET PO SCH (21:47)
[2018-08-21] MEDS: QUEtiapine FUMARATE 25 MG TABLET PO SCH (21:48)
[2018-08-22 00:23] VITALS: BP 107/55
[2018-08-22 03:26] VITALS: BP 137/70
[2018-08-22] MEDS: HEPARIN SODIUM 25000 UNITS/D5W 250 ML IV PRN ×2 (04:29→08:04)
[2018-08-22] MEDS: CefTRIAXone 1 GM/DEXTROSE 50 ML IV SCH (06:11)
[2018-08-22] MEDS: INSULIN REGULAR, HUMAN 100 UNITS/ML SQ PRN ×2 (06:12→12:29)
[2018-08-22 07:48] LABS: ALANINE AMINOTRANSFERASE 18 U/L (12-78); ALKALINE PHOSPHATASE 77 U/L (46-116); ANION GAP 5 mmol/L (8-16); ASPARTATE AMINOTRANSFERASE 45 U/L (15-37); BILIRUBIN,TOTAL 0.2 mg/dL (0.1-1.0); CALCIUM, TOTAL 8.5 mg/dL (8.8-10.5); CARBON DIOXIDE 30 mmol/L (22-29); CHLORIDE 105 mmol/L (98-107); CREATININE 0.81 mg/dL (0.60-1.30); GLUCOSE,RANDOM 157 mg/dL (70-110); POTASSIUM 3.9 mmol/L (3.5-5.1); SODIUM SERUM 140 mmol/L (136-145); TOTAL PROTEIN, SERUM 5.3 g/dL (6.4-8.2); UREA NITROGEN, BLOOD 14 mg/dL (7-18)
[2018-08-22 07:53] LABS: GLOMERULAR FILTR. RATE CALC > 60 mL/min (>60)
[2018-08-22 08:02] VITALS: BP 154/73
[2018-08-22] MEDS: PANTOPRAZOLE SODIUM 40 MG/VIAL IVP SCH (09:10)
[2018-08-22] MEDS: CARBIDOPA/LEVODOPA 25-100 MG TABLET PO SCH ×4 (09:10→20:15)
[2018-08-22] MEDS: DOCUSATE SODIUM 250 MG CAPSULE PO SCH ×2 (09:10→20:15)
[2018-08-22 09:39] LABS: GLUCOMETER DEV NAME(LOC) 5N.1; GLUCOSE,POINT OF CARE 158 MG/DL (70-110)
[2018-08-22 10:05] LABS: GLUCOMETER DEV NAME(LOC) 5N.2; GLUCOSE,POINT OF CARE 150 MG/DL (70-110)
[2018-08-22 11:50] VITALS: BP 102/71
[2018-08-22 12:30] LABS: GLUCOMETER DEV NAME(LOC) 5N.2; GLUCOSE,POINT OF CARE 156 MG/DL (70-110)
[2018-08-22 19:15] VITALS: BP 126/75
[2018-08-22] MEDS: QUEtiapine FUMARATE 25 MG TABLET PO SCH (20:15)
[2018-08-22] MEDS: ALFUZOSIN HCL 10 MG ER TABLET PO SCH (20:15)
[2018-08-22 23:54] VITALS: BP 118/70
[2018-08-23 03:55] LABS: GLUCOMETER DEV NAME(LOC) 5N.2; GLUCOSE,POINT OF CARE 120 MG/DL (70-110)
[2018-08-23 03:55] LABS: GLUCOMETER DEV NAME(LOC) 5N.2; GLUCOSE,POINT OF CARE 135 MG/DL (70-110)
[2018-08-23 04:45] VITALS: BP 125/74
[2018-08-23] MEDS: CefTRIAXone 1 GM/DEXTROSE 50 ML IV SCH (05:04)
[2018-08-23] MEDS: INSULIN REGULAR, HUMAN 100 UNITS/ML SQ PRN (05:25)
[2018-08-23 05:56] LABS: GLUCOMETER DEV NAME(LOC) 5N.1; GLUCOSE,POINT OF CARE 157 MG/DL (70-110)
[2018-08-23 06:59] LABS: ALANINE AMINOTRANSFERASE 28 U/L (12-78); ALBUMIN 2.1 g/dL (3.4-5.0); ALKALINE PHOSPHATASE 80 U/L (46-116); ANION GAP 4 mmol/L (8-16); ASPARTATE AMINOTRANSFERASE 63 U/L (15-37); BILIRUBIN,TOTAL 0.2 mg/dL (0.1-1.0); CALCIUM, TOTAL 8.9 mg/dL (8.8-10.5); CARBON DIOXIDE 31 mmol/L (22-29); CHLORIDE 107 mmol/L (98-107); CREATININE 0.71 mg/dL (0.60-1.30); GLUCOSE,RANDOM 170 mg/dL (70-110); POTASSIUM 3.8 mmol/L (3.5-5.1); SODIUM SERUM 142 mmol/L (136-145); TOTAL PROTEIN, SERUM 5.4 g/dL (6.4-8.2); UREA NITROGEN, BLOOD 11 mg/dL (7-18)
[2018-08-23 07:05] LABS: GLOMERULAR FILTR. RATE CALC > 60 mL/min (>60)
[2018-08-23 07:25] VITALS: BP 116/64
[2018-08-23] MEDS: PANTOPRAZOLE SODIUM 40 MG/VIAL IVP SCH (09:15)
[2018-08-23] MEDS: DOCUSATE SODIUM 250 MG CAPSULE PO SCH ×2 (09:15→20:04)
[2018-08-23] MEDS: CARBIDOPA/LEVODOPA 25-100 MG TABLET PO SCH ×4 (09:15→20:04)
[2018-08-23] MEDS: HEPARIN SODIUM,PORCINE 5,000 UNITS/ML VIAL IVP PRN (09:16)
[2018-08-23] MEDS: HEPARIN SODIUM 25000 UNITS/D5W 250 ML IV PRN (09:29)
[2018-08-23 11:12] VITALS: BP 98/66
[2018-08-23 12:48] LABS: GLUCOMETER DEV NAME(LOC) 5N.1; GLUCOSE,POINT OF CARE 147 MG/DL (70-110)
[2018-08-23 15:23] VITALS: BP 121/65
[2018-08-23 19:33] VITALS: BP 120/73
[2018-08-23] MEDS: ALFUZOSIN HCL 10 MG ER TABLET PO SCH (20:04)
[2018-08-23] MEDS: QUEtiapine FUMARATE 25 MG TABLET PO SCH (20:04)
[2018-08-24] VITALS (9 sets, daily range): BP systolic 113–140; BP diastolic 61–91
[2018-08-24 02:23] LABS: GLUCOMETER DEV NAME(LOC) 5N.1; GLUCOSE,POINT OF CARE 160 MG/DL (70-110)
[2018-08-24] MEDS: CefTRIAXone 1 GM/DEXTROSE 50 ML IV SCH (05:26)
[2018-08-24 05:29] LABS: GLUCOMETER DEV NAME(LOC) 5N.2; GLUCOSE,POINT OF CARE 166 MG/DL (70-110)
[2018-08-24 07:39] LABS: GLUCOMETER DEV NAME(LOC) 5N.1; GLUCOSE,POINT OF CARE 159 MG/DL (70-110)
[2018-08-24 08:04] LABS: BASOPHILS % (AUTO) 0.4 % (0.0-2.0); EOSINOPHILS % (AUTO) 0.4 % (1.0-6.0); HEMATOCRIT 25.8 % (41-53); HEMOGLOBIN 8.8 g/dL (13.5-17.5); LYMPHOCYTES # (AUTO) 0.7 K/uL (1.0-4.8); LYMPHOCYTES % (AUTO) 13.2 % (22.0-44.0); MEAN CORPUSCULAR HEMOGLOBIN 25.3 pg (26.0-34.0); MEAN CORPUSCULAR HGB CONC 34.1 G/dL (31.0-37.0); MEAN CORPUSCULAR VOLUME 74 fL (80-100); MONOCYTES # (AUTO) 0.5 K/uL (0.1-1.0); MONOCYTES % (AUTO) 8.8 % (2.0-9.0); NEUTROPHILS # (AUTO) 4.2 K/uL (1.8-7.7); NEUTROPHILS % (AUTO) 77.2 % (40.0-70.0); PLATELET COUNT (AUTO) 168 K/uL (150-450); RED BLOOD CELL COUNT(AUTO) 3.48 MIL/uL (4.50-5.90); RED CELL DISTRIBUTION WIDTH 17.6 % (11.5-14.5)
[2018-08-24 08:07] LABS: CALCIUM, TOTAL 8.7 mg/dL (8.8-10.5); CARBON DIOXIDE 33 mmol/L (22-29); CHLORIDE 105 mmol/L (98-107); CREATININE 0.82 mg/dL (0.60-1.30); GLUCOSE,RANDOM 162 mg/dL (70-110); UREA NITROGEN, BLOOD 11 mg/dL (7-18)
[2018-08-24 08:15] LABS: ANION GAP 2 mmol/L (8-16); GLOMERULAR FILTR. RATE CALC > 60 mL/min (>60); POTASSIUM 4.2 mmol/L (3.5-5.1); SODIUM SERUM 140 mmol/L (136-145)
[2018-08-24] MEDS: PANTOPRAZOLE SODIUM 40 MG/VIAL IVP SCH (08:32)
[2018-08-24] MEDS: DOCUSATE SODIUM 250 MG CAPSULE PO SCH ×2 (09:00→21:03)
[2018-08-24] MEDS: CARBIDOPA/LEVODOPA 25-100 MG TABLET PO SCH ×4 (09:00→21:03)
[2018-08-24] MEDS ORDERED: SODIUM CHLORIDE 0.9% 1,000 ML IV ONE ×2 (09:49→11:15)
[2018-08-24] MEDS: HYDROCODONE/ACETAMINOPHEN 5-325 MG TABLET PO PRN (16:26)
[2018-08-24 20:59] LABS: GLUCOMETER DEV NAME(LOC) 5N.2; GLUCOSE,POINT OF CARE 148 MG/DL (70-110)
[2018-08-24] MEDS: QUEtiapine FUMARATE 25 MG TABLET PO SCH (21:03)
[2018-08-24] MEDS: ALFUZOSIN HCL 10 MG ER TABLET PO SCH (21:03)
[2018-08-25 02:24] LABS: GLUCOMETER DEV NAME(LOC) 5N.2; GLUCOSE,POINT OF CARE 173 MG/DL (70-110)
[2018-08-25 03:04] LABS: GLUCOMETER DEV NAME(LOC) 5N.1; GLUCOSE,POINT OF CARE 141 MG/DL (70-110)
[2018-08-25 04:36] VITALS: BP 126/65
[2018-08-25 06:06] LABS: BASOPHILS % (AUTO) 0.2 % (0.0-2.0); EOSINOPHILS % (AUTO) 0.2 % (1.0-6.0); HEMATOCRIT 25.4 % (41-53); HEMOGLOBIN 8.3 g/dL (13.5-17.5); LYMPHOCYTES # (AUTO) 0.9 K/uL (1.0-4.8); LYMPHOCYTES % (AUTO) 13.3 % (22.0-44.0); MEAN CORPUSCULAR HEMOGLOBIN 24.6 pg (26.0-34.0); MEAN CORPUSCULAR HGB CONC 32.9 G/dL (31.0-37.0); MEAN CORPUSCULAR VOLUME 75 fL (80-100); MONOCYTES # (AUTO) 0.5 K/uL (0.1-1.0); MONOCYTES % (AUTO) 8.2 % (2.0-9.0); NEUTROPHILS % (AUTO) 78.1 % (40.0-70.0); PLATELET COUNT (AUTO) 208 K/uL (150-450); RED BLOOD CELL COUNT(AUTO) 3.39 MIL/uL (4.50-5.90); RED CELL DISTRIBUTION WIDTH 18.4 % (11.5-14.5)
[2018-08-25 06:14] LABS: PROTHROMBIN TIME 10.2 SEC (9.4-11.6)
[2018-08-25 06:44] LABS: GLUCOMETER DEV NAME(LOC) 5N.1; GLUCOSE,POINT OF CARE 166 MG/DL (70-110)
[2018-08-25] MEDS: CefTRIAXone 1 GM/DEXTROSE 50 ML IV SCH (06:56)
[2018-08-25 07:23] VITALS: BP 113/48
[2018-08-25] MEDS ORDERED: HEPARIN SODIUM,PORCINE 5,000 UNITS/ML VIAL IVP ONE (08:00)
[2018-08-25] MEDS ORDERED: HEPARIN SODIUM,PORCINE 5,000 UNITS/ML VIAL IVP PRN ×2 (08:00)
[2018-08-25] MEDS: CARBIDOPA/LEVODOPA 25-100 MG TABLET PO SCH ×4 (08:11→20:59)
[2018-08-25] MEDS: PANTOPRAZOLE SODIUM 40 MG/VIAL IVP SCH (08:11)
[2018-08-25] MEDS: DOCUSATE SODIUM 250 MG CAPSULE PO SCH ×2 (08:11→20:58)
[2018-08-25] MEDS: POVIDONE-IODINE 10% 120 ML SOLUTION TP SCH (08:16)
[2018-08-25] MEDS: HYDROGEN PEROXIDE 473 ML SOLUTION TP SCH (08:16)
[2018-08-25] MEDS: HEPARIN SODIUM 25000 UNITS/D5W 250 ML IV PRN ×3 (08:25→23:50)
[2018-08-25 11:04] VITALS: BP 111/68
[2018-08-25 15:02] VITALS: BP 131/73
[2018-08-25 19:28] VITALS: BP 117/72
[2018-08-25] MEDS: ALFUZOSIN HCL 10 MG ER TABLET PO SCH (20:59)
[2018-08-25] MEDS: QUEtiapine FUMARATE 25 MG TABLET PO SCH (20:59)
[2018-08-26] VITALS (7 sets, daily range): BP systolic 110–137; BP diastolic 58–76
[2018-08-26 01:13] LABS: GLUCOMETER DEV NAME(LOC) 5S.2; GLUCOSE,POINT OF CARE 156 MG/DL (70-110)
[2018-08-26 02:09] LABS: GLUCOMETER DEV NAME(LOC) 5N.1; GLUCOSE,POINT OF CARE 168 MG/DL (70-110)
[2018-08-26 02:09] LABS: GLUCOMETER DEV NAME(LOC) 5N.1; GLUCOSE,POINT OF CARE 151 MG/DL (70-110)
[2018-08-26] MEDS: CefTRIAXone 1 GM/DEXTROSE 50 ML IV SCH (06:05)
[2018-08-26 06:49] LABS: GLUCOMETER DEV NAME(LOC) 5N.2; GLUCOSE,POINT OF CARE 165 MG/DL (70-110)
[2018-08-26] MEDS: HEPARIN SODIUM 25000 UNITS/D5W 250 ML IV PRN ×2 (07:03→19:06)
[2018-08-26 09:06] LABS: ANION GAP 1 mmol/L (8-16); CALCIUM, TOTAL 8.8 mg/dL (8.8-10.5); CARBON DIOXIDE 34 mmol/L (22-29); CHLORIDE 104 mmol/L (98-107); CREATININE 0.77 mg/dL (0.60-1.30); GLUCOSE,RANDOM 157 mg/dL (70-110); POTASSIUM 4.3 mmol/L (3.5-5.1); SODIUM SERUM 139 mmol/L (136-145); UREA NITROGEN, BLOOD 11 mg/dL (7-18)
[2018-08-26 09:08] LABS: GLOMERULAR FILTR. RATE CALC > 60 mL/min (>60)
[2018-08-26] MEDS: DOCUSATE SODIUM 250 MG CAPSULE PO SCH ×2 (09:56→20:24)
[2018-08-26] MEDS: POVIDONE-IODINE 10% 120 ML SOLUTION TP SCH (09:57)
[2018-08-26] MEDS: PANTOPRAZOLE SODIUM 40 MG/VIAL IVP SCH (09:57)
[2018-08-26] MEDS: HYDROGEN PEROXIDE 473 ML SOLUTION TP SCH (10:11)
[2018-08-26] MEDS: CARBIDOPA/LEVODOPA 25-100 MG TABLET PO SCH ×4 (10:38→20:24)
[2018-08-26] MEDS: INSULIN REGULAR, HUMAN 100 UNITS/ML SQ PRN (12:40)
[2018-08-26] MEDS: QUEtiapine FUMARATE 25 MG TABLET PO SCH (20:24)
[2018-08-26] MEDS: ALFUZOSIN HCL 10 MG ER TABLET PO SCH (20:24)
[2018-08-27 00:34] LABS: GLUCOMETER DEV NAME(LOC) 5S.2; GLUCOSE,POINT OF CARE 139 MG/DL (70-110)
[2018-08-27 00:34] LABS: GLUCOMETER DEV NAME(LOC) 5N.2; GLUCOSE,POINT OF CARE 136 MG/DL (70-110)
[2018-08-27 00:34] LABS: GLUCOMETER DEV NAME(LOC) 5N.2; GLUCOSE,POINT OF CARE 190 MG/DL (70-110)
[2018-08-27] MEDS: HEPARIN SODIUM 25000 UNITS/D5W 250 ML IV PRN (01:37)
[2018-08-27 04:16] VITALS: BP 133/88
[2018-08-27] MEDS: CefTRIAXone 1 GM/DEXTROSE 50 ML IV SCH (05:47)
[2018-08-27 07:00] LABS: GLUCOMETER DEV NAME(LOC) 5S.2; GLUCOSE,POINT OF CARE 171 MG/DL (70-110)
[2018-08-27] MEDS: CARBIDOPA/LEVODOPA 25-100 MG TABLET PO SCH ×4 (08:11→23:26)
[2018-08-27] MEDS: PANTOPRAZOLE SODIUM 40 MG/VIAL IVP SCH (08:11)
[2018-08-27] MEDS: HYDROGEN PEROXIDE 473 ML SOLUTION TP SCH (08:11)
[2018-08-27] MEDS: DOCUSATE SODIUM 250 MG CAPSULE PO SCH ×2 (08:11→20:39)
[2018-08-27 08:30] VITALS: BP 143/82
[2018-08-27 11:24] VITALS: BP 138/74
[2018-08-27] MEDS: INSULIN REGULAR, HUMAN 100 UNITS/ML SQ PRN ×2 (11:54→17:45)
[2018-08-27] MEDS: POVIDONE-IODINE 10% 120 ML SOLUTION TP SCH (13:40)
[2018-08-27 16:00] VITALS: BP 148/61
[2018-08-27 19:43] VITALS: BP 128/69
[2018-08-27] MEDS: QUEtiapine FUMARATE 25 MG TABLET PO SCH (20:39)
[2018-08-27] MEDS: ALFUZOSIN HCL 10 MG ER TABLET PO SCH (20:39)
[2018-08-27 21:08] LABS: GLUCOMETER DEV NAME(LOC) 5S.2; GLUCOSE,POINT OF CARE 162 MG/DL (70-110)
[2018-08-27 21:14] LABS: GLUCOMETER DEV NAME(LOC) 5N.2; GLUCOSE,POINT OF CARE 170 MG/DL (70-110)
[2018-08-27] MEDS: HYDROCODONE/ACETAMINOPHEN 5-325 MG TABLET PO PRN (23:41)
[2018-08-27 23:47] VITALS: BP 119/63
[2018-08-28] MEDS: INSULIN REGULAR, HUMAN 100 UNITS/ML SQ PRN (00:25)
[2018-08-28 02:34] LABS: GLUCOMETER DEV NAME(LOC) 5S.2; GLUCOSE,POINT OF CARE 176 MG/DL (70-110)
[2018-08-28 04:20] VITALS: BP 125/66
[2018-08-28] MEDS: CARBIDOPA/LEVODOPA 25-100 MG TABLET PO SCH ×2 (05:14→11:14)
[2018-08-28] MEDS: CefTRIAXone 1 GM/DEXTROSE 50 ML IV SCH (05:14)
[2018-08-28 05:39] LABS: GLUCOMETER DEV NAME(LOC) 5S.2; GLUCOSE,POINT OF CARE 129 MG/DL (70-110)
[2018-08-28 05:59] LABS: BASOPHILS % (AUTO) 0.1 % (0.0-2.0); EOSINOPHILS % (AUTO) 0.6 % (1.0-6.0); HEMATOCRIT 25.4 % (41-53); HEMOGLOBIN 8.3 g/dL (13.5-17.5); LYMPHOCYTES # (AUTO) 1.3 K/uL (1.0-4.8); LYMPHOCYTES % (AUTO) 19.5 % (22.0-44.0); MEAN CORPUSCULAR HEMOGLOBIN 24.4 pg (26.0-34.0); MEAN CORPUSCULAR HGB CONC 32.7 G/dL (31.0-37.0); MEAN CORPUSCULAR VOLUME 75 fL (80-100); MONOCYTES # (AUTO) 0.5 K/uL (0.1-1.0); MONOCYTES % (AUTO) 7.7 % (2.0-9.0); NEUTROPHILS % (AUTO) 72.1 % (40.0-70.0); PLATELET COUNT (AUTO) 246 K/uL (150-450); RED BLOOD CELL COUNT(AUTO) 3.41 MIL/uL (4.50-5.90); RED CELL DISTRIBUTION WIDTH 18.3 % (11.5-14.5)
[2018-08-28 07:55] VITALS: BP 113/77
[2018-08-28] MEDS: HYDROGEN PEROXIDE 473 ML SOLUTION TP SCH (08:30)
[2018-08-28] MEDS: PANTOPRAZOLE SODIUM 40 MG/VIAL IVP SCH (08:30)
[2018-08-28] MEDS: DOCUSATE SODIUM 250 MG CAPSULE PO SCH (08:30)
[2018-08-28] MEDS: POVIDONE-IODINE 10% 120 ML SOLUTION TP SCH (08:31)
[2018-08-28] MEDS ORDERED: APIXABAN 5 MG TABLET PO SCH (10:00)
[2018-08-28] MEDS ORDERED: APIX5TAB PO (10:47)
[2018-08-28] MEDS ORDERED: CEFT1FRO3 IV (10:48)
[2018-08-28] MEDS ORDERED: HYDR1SOL TP (10:52)
[2018-08-28] MEDS ORDERED: PANT40TA25 PEG (10:55)
[2018-08-28] MEDS ORDERED: [UNRECOGNIZED DRUG - CODE] TP (10:57)
[2018-08-28] MEDS ORDERED: ACET650S28 PO (10:59)
[2018-08-28] MEDS ORDERED: ALBU2.5V2 NEB (11:00)
[2018-08-28] MEDS ORDERED: HYDR-4061 PO (11:01)
[2018-08-28] MEDS ORDERED: INSU100V3 SQ (11:03)
[2018-08-28] MEDS ORDERED: IPRNEB IH (11:05)
[2018-08-28] MEDS ORDERED: ONDA4AMP IV (11:06)
[2018-08-28 12:04] VITALS: BP 135/70
[2018-08-28 15:29] LABS: GLUCOMETER DEV NAME(LOC) 5S.2; GLUCOSE,POINT OF CARE 167 MG/DL (70-110)
== END 2018-08-28 14:45 | DRG 871 ==
LOC: EMS 01:24 → ICU 10:14 → 5N 08-19 22:45
PROVIDERS: ADMIT Internal Medicine; ATTEND Internal Medicine
PROC: 3E02340 Introduction of Influenza Vaccine into Muscle, Percutaneous Approach (ICD-10-PCS; 2018-08-16)
PROC: 05HY33Z Insertion of Infusion Device into Upper Vein, Percutaneous Approach (ICD-10-PCS; 2018-08-21)
PROC: B54NZZA Ultrasonography of Left Upper Extremity Veins, Guidance (ICD-10-PCS; 2018-08-21)
PROC: 0DB68ZX Excision of Stomach, Via Natural or Artificial Opening Endoscopic, Diagnostic (ICD-10-PCS; 2018-08-24)
PROC: 0DH63UZ Insertion of Feeding Device into Stomach, Percutaneous Approach (ICD-10-PCS; principal; 2018-08-24 12:00)
DX: A41.9 Sepsis, unspecified organism (principal); K25.4 Chronic or unspecified gastric ulcer with hemorrhage; G93.41 Metabolic encephalopathy; E87.0 Hyperosmolality and hypernatremia; N39.0 Urinary tract infection, site not specified; N17.9 Acute kidney failure, unspecified; I82.402 Acute embolism and thrombosis of unspecified deep veins of left lower extremity; R64 Cachexia; E44.0 Moderate protein-calorie malnutrition; E86.0 Dehydration; G20 Parkinson's disease; F02.80 Dementia in other diseases classified elsewhere, unspecified severity, without behavioral disturbance, psychotic disturbance, mood disturbance, and anxiety; G30.9 Alzheimer's disease, unspecified; D50.9 Iron deficiency anemia, unspecified; E11.22 Type 2 diabetes mellitus with diabetic chronic kidney disease; E11.40 Type 2 diabetes mellitus with diabetic neuropathy, unspecified; E11.65 Type 2 diabetes mellitus with hyperglycemia; E78.5 Hyperlipidemia, unspecified; E86.1 Hypovolemia; E87.6 Hypokalemia; E87.8 Other disorders of electrolyte and fluid balance, not elsewhere classified; F01.50 Vascular dementia, unspecified severity, without behavioral disturbance, psychotic disturbance, mood disturbance, and anxiety; I12.9 Hypertensive chronic kidney disease with stage 1 through stage 4 chronic kidney disease, or unspecified chronic kidney disease; M19.90 Unspecified osteoarthritis, unspecified site; N18.9 Chronic kidney disease, unspecified; R13.10 Dysphagia, unspecified; R62.7 Adult failure to thrive; Z16.23 Resistance to quinolones and fluoroquinolones; Z74.01 Bed confinement status; Z85.46 Personal history of malignant neoplasm of prostate; Z86.718 Personal history of other venous thrombosis and embolism; I69.311 Memory deficit following cerebral infarction; Z87.11 Personal history of peptic ulcer disease; Z93.1 Gastrostomy status; Z23 Encounter for immunization
CPT/HCPCS: 36245; 36569; 51702; 70450; 76937; 82271; 83036; 83605; 83735; 83930; 83935; 84100; 84300; 84443; 87040; 87081; 87086; 90686; 92526; 92610; 93005; 93970; 96365; C9113; G0378; J0696; J1644; J7030; J7050; J7060

== ENCOUNTER 2018-08-31 16:12 | Inpatient (IN) | payer MEDICARE, OTHER ==
[~2018-08-31] VITALS: Ht 167.6 cm; Wt 52.5 kg
[~2018-08-31 16:12] MED LIST changes: +ACET650S28 PO; +ALBU2.5V2 NEB; +ALFU10TA30 GT; -ALFU10TA30 PO; +APIX5TAB GT; +ATOR20TA86 GT; -ATOR20TA86 PO; +CARB-101 GT; -CARB-101 PO; +CEFT1FRO3 IV; +DOCU250C91 GT; -DOCU250C91 PO; +ESCI10TA GT; -ESCI10TA PO; +HYDR-4061 GT; +HYDR1SOL TP; +INSU100V3 SQ; +IPRNEB IH; -MIRT15 PO; +ONDA4AMP IV; +PANT40TA25 PEG; +QUET25TA GT; -QUET25TA PO; +[UNRECOGNIZED DRUG - CODE] TP
[2018-08-31 18:02] LABS: BASOPHILS % (AUTO) 0.2 % (0.0-2.0); EOSINOPHILS % (AUTO) 0.7 % (1.0-6.0); HEMOGLOBIN 7.7 g/dL (13.5-17.5); LYMPHOCYTES # (AUTO) 0.8 K/uL (1.0-4.8); LYMPHOCYTES % (AUTO) 13.6 % (22.0-44.0); MEAN CORPUSCULAR HGB CONC 32.2 G/dL (31.0-37.0); MEAN CORPUSCULAR VOLUME 75 fL (80-100); MONOCYTES # (AUTO) 0.5 K/uL (0.1-1.0); MONOCYTES % (AUTO) 7.7 % (2.0-9.0); NEUTROPHILS # (AUTO) 4.7 K/uL (1.8-7.7); NEUTROPHILS % (AUTO) 77.8 % (40.0-70.0); PLATELET COUNT (AUTO) 278 K/uL (150-450); RED BLOOD CELL COUNT(AUTO) 3.22 MIL/uL (4.50-5.90); RED CELL DISTRIBUTION WIDTH 18.3 % (11.5-14.5)
[2018-08-31 18:13] LABS: ANION GAP 6 mmol/L (8-16); CALCIUM, TOTAL 9.9 mg/dL (8.8-10.5); CARBON DIOXIDE 33 mmol/L (22-29); CHLORIDE 103 mmol/L (98-107); CREATININE 0.69 mg/dL (0.60-1.30); GLUCOSE,RANDOM 114 mg/dL (70-110); POTASSIUM 4.4 mmol/L (3.5-5.1); SODIUM SERUM 142 mmol/L (136-145); UREA NITROGEN, BLOOD 18 mg/dL (7-18)
[2018-08-31 18:15] LABS: GLOMERULAR FILTR. RATE CALC > 60 mL/min (>60)
[2018-08-31 18:20] LABS: ALANINE AMINOTRANSFERASE 23 U/L (12-78); ALBUMIN 2.3 g/dL (3.4-5.0); ALKALINE PHOSPHATASE 75 U/L (46-116); ASPARTATE AMINOTRANSFERASE 40 U/L (15-37); BILIRUBIN,TOTAL 0.3 mg/dL (0.1-1.0); CREATINE KINASE, TOTAL ONLY 50 U/L (39-308); TOTAL PROTEIN, SERUM 6.2 g/dL (6.4-8.2)
[2018-08-31 19:01] LABS: PROTHROMBIN TIME 10.4 SEC (9.4-11.6)
[2018-08-31 19:22] LABS: B-TYPE NATRIURETIC PEPTIDE 49 pg/mL (0-100)
[2018-08-31] MEDS ORDERED: ACETAMINOPHEN 325 MG TABLET PO PRN (19:45)
[2018-08-31] MEDS ORDERED: ONDANSETRON HCL 4 MG/2 ML VIAL IVP PRN ×2 (19:45→23:00)
[2018-08-31] MEDS ORDERED: 0.9% SODIUM CHLORIDE 10 ML SYRINGE IVP PRN ×2 (19:45→23:00)
[2018-08-31 21:06] VITALS: BP 140/74
[2018-08-31] MEDS ORDERED: SODIUM CHLORIDE 0.9% 250 ML IV ONE (22:19)
[2018-08-31] MEDS ORDERED: SUCR1ORA5 GT (22:41)
[2018-08-31] MEDS ORDERED: MOM30 PO (22:46)
[2018-08-31] MEDS ORDERED: FE PR (22:46)
[2018-08-31] MEDS ORDERED: BISA5TAB12 PR (22:46)
[2018-08-31] MEDS ORDERED: OxyCODONE HCL/ACETAMINOPHEN 5-325 MG TABLET PO PRN ×2 (23:00)
[2018-08-31] MEDS: PANTOPRAZOLE SODIUM 40 MG/VIAL IVP SCH (23:00)
[2018-08-31 23:10] VITALS: BP 148/71
[2018-08-31 23:25] VITALS: BP 152/77
[2018-08-31 23:40] VITALS: BP 148/76
[2018-08-31] MEDS ORDERED: DEXTROSE 50%-WATER 25 GM/50 ML SYRINGE IVP PRN (23:45)
[2018-08-31 23:55] VITALS: BP 150/79
[2018-09-01] VITALS (11 sets, daily range): BP systolic 120–148; BP diastolic 64–80
[2018-09-01] MEDS: QUEtiapine FUMARATE 25 MG TABLET GT SCH ×3 (00:30→20:49)
[2018-09-01] MEDS: APIXABAN 5 MG TABLET GT SCH ×3 (00:30→20:49)
[2018-09-01] MEDS: ATORVASTATIN CALCIUM 20 MG TABLET GT SCH ×2 (00:30→20:50)
[2018-09-01] MEDS: ALFUZOSIN HCL 10 MG ER TABLET PO SCH ×2 (00:30→20:49)
[2018-09-01] MEDS: DOCUSATE SODIUM 100 MG CAPSULE PO SCH ×3 (00:30→20:49)
[2018-09-01] MEDS: INSULIN REGULAR, HUMAN 100 UNITS/ML SQ PRN ×4 (00:31→16:26)
[2018-09-01 00:58] LABS: GLUCOMETER DEV NAME(LOC) 6N.2; GLUCOSE,POINT OF CARE 160 MG/DL (70-110)
[2018-09-01 06:15] LABS: BASOPHILS % (AUTO) 0.2 % (0.0-2.0); EOSINOPHILS % (AUTO) 0.3 % (1.0-6.0); HEMATOCRIT 27.9 % (41-53); HEMOGLOBIN 9.1 g/dL (13.5-17.5); LYMPHOCYTES % (AUTO) 15.4 % (22.0-44.0); MEAN CORPUSCULAR HEMOGLOBIN 25.1 pg (26.0-34.0); MEAN CORPUSCULAR HGB CONC 32.6 G/dL (31.0-37.0); MEAN CORPUSCULAR VOLUME 77 fL (80-100); MONOCYTES # (AUTO) 0.5 K/uL (0.1-1.0); MONOCYTES % (AUTO) 7.7 % (2.0-9.0); NEUTROPHILS # (AUTO) 4.9 K/uL (1.8-7.7); NEUTROPHILS % (AUTO) 76.4 % (40.0-70.0); PLATELET COUNT (AUTO) 258 K/uL (150-450); RED BLOOD CELL COUNT(AUTO) 3.62 MIL/uL (4.50-5.90); RED CELL DISTRIBUTION WIDTH 17.9 % (11.5-14.5)
[2018-09-01 06:32] LABS: ALANINE AMINOTRANSFERASE 50 U/L (12-78); ALBUMIN 2.2 g/dL (3.4-5.0); ALKALINE PHOSPHATASE 74 U/L (46-116); ANION GAP 7 mmol/L (8-16); ASPARTATE AMINOTRANSFERASE 33 U/L (15-37); BILIRUBIN,TOTAL 0.4 mg/dL (0.1-1.0); CALCIUM, TOTAL 10.2 mg/dL (8.8-10.5); CARBON DIOXIDE 31 mmol/L (22-29); CHLORIDE 103 mmol/L (98-107); GLUCOSE,RANDOM 155 mg/dL (70-110); POTASSIUM 4.2 mmol/L (3.5-5.1); SODIUM SERUM 141 mmol/L (136-145); TOTAL PROTEIN, SERUM 6.1 g/dL (6.4-8.2); UREA NITROGEN, BLOOD 18 mg/dL (7-18)
[2018-09-01 06:35] LABS: GLOMERULAR FILTR. RATE CALC > 60 mL/min (>60)
[2018-09-01 06:58] LABS: GLUCOMETER DEV NAME(LOC) 6N.2; GLUCOSE,POINT OF CARE 148 MG/DL (70-110)
[2018-09-01] MEDS: PANTOPRAZOLE SODIUM 40 MG/VIAL IVP SCH ×2 (09:05→20:50)
[2018-09-01] MEDS: CARBIDOPA/LEVODOPA 25-100 MG TABLET GT SCH ×4 (09:05→20:49)
[2018-09-01] MEDS: SUCRALFATE 1 GM/10 ML SUSPENSION UDCUP GT SCH ×3 (09:06→20:49)
[2018-09-01] MEDS: ESCITALOPRAM OXALATE 10 MG TABLET GT SCH (09:06)
[2018-09-01 13:13] LABS: GLUCOMETER DEV NAME(LOC) 6N.1; GLUCOSE,POINT OF CARE 185 MG/DL (70-110)
[2018-09-01 21:14] LABS: GLUCOMETER DEV NAME(LOC) 6N.2; GLUCOSE,POINT OF CARE 114 MG/DL (70-110)
[2018-09-01 21:14] LABS: GLUCOMETER DEV NAME(LOC) 6N.1; GLUCOSE,POINT OF CARE 166 MG/DL (70-110)
[2018-09-02 00:43] VITALS: BP 112/70
[2018-09-02 05:39] VITALS: BP 140/72
[2018-09-02] MEDS: INSULIN REGULAR, HUMAN 100 UNITS/ML SQ PRN ×3 (05:57→17:16)
[2018-09-02 06:08] LABS: GLUCOMETER DEV NAME(LOC) 6N.1; GLUCOSE,POINT OF CARE 161 MG/DL (70-110)
[2018-09-02 06:21] LABS: ANION GAP 5 mmol/L (8-16); CALCIUM, TOTAL 9.3 mg/dL (8.8-10.5); CARBON DIOXIDE 32 mmol/L (22-29); CHLORIDE 102 mmol/L (98-107); GLUCOSE,RANDOM 167 mg/dL (70-110); POTASSIUM 4.4 mmol/L (3.5-5.1); SODIUM SERUM 139 mmol/L (136-145); UREA NITROGEN, BLOOD 19 mg/dL (7-18)
[2018-09-02 06:29] LABS: GLOMERULAR FILTR. RATE CALC > 60 mL/min (>60)
[2018-09-02 06:49] LABS: BASOPHILS % (AUTO) 0.5 % (0.0-2.0); EOSINOPHILS % (AUTO) 0.5 % (1.0-6.0); HEMATOCRIT 31.1 % (41-53); LYMPHOCYTES # (AUTO) 0.8 K/uL (1.0-4.8); LYMPHOCYTES % (AUTO) 14.1 % (22.0-44.0); MEAN CORPUSCULAR HEMOGLOBIN 24.8 pg (26.0-34.0); MEAN CORPUSCULAR HGB CONC 32.1 G/dL (31.0-37.0); MEAN CORPUSCULAR VOLUME 77 fL (80-100); MONOCYTES # (AUTO) 0.5 K/uL (0.1-1.0); MONOCYTES % (AUTO) 7.9 % (2.0-9.0); NEUTROPHILS # (AUTO) 4.6 K/uL (1.8-7.7); PLATELET COUNT (AUTO) 264 K/uL (150-450); RED BLOOD CELL COUNT(AUTO) 4.03 MIL/uL (4.50-5.90); RED CELL DISTRIBUTION WIDTH 18.2 % (11.5-14.5)
[2018-09-02 07:26] VITALS: BP 136/68
[2018-09-02] MEDS: DOCUSATE SODIUM 100 MG CAPSULE PO SCH (08:24)
[2018-09-02] MEDS: SUCRALFATE 1 GM/10 ML SUSPENSION UDCUP GT SCH ×2 (08:24→15:51)
[2018-09-02] MEDS: APIXABAN 5 MG TABLET GT SCH (08:24)
[2018-09-02] MEDS: CARBIDOPA/LEVODOPA 25-100 MG TABLET GT SCH ×3 (08:24→15:51)
[2018-09-02] MEDS: ESCITALOPRAM OXALATE 10 MG TABLET GT SCH (08:25)
[2018-09-02] MEDS: PANTOPRAZOLE SODIUM 40 MG/VIAL IVP SCH (08:25)
[2018-09-02 11:27] VITALS: BP 132/81
[2018-09-02 12:43] LABS: GLUCOMETER DEV NAME(LOC) 6N.1; GLUCOSE,POINT OF CARE 168 MG/DL (70-110)
[2018-09-02 16:22] VITALS: BP 134/70
[2018-09-02 18:23] LABS: GLUCOMETER DEV NAME(LOC) 6N.1; GLUCOSE,POINT OF CARE 155 MG/DL (70-110)
== END 2018-09-02 18:43 | DRG 391 ==
LOC: EMS 16:13 → 6N 20:00
PROVIDERS: ADMIT Internal Medicine; ATTEND Internal Medicine
PROC: 30233N1 Transfusion of Nonautologous Red Blood Cells into Peripheral Vein, Percutaneous Approach (ICD-10-PCS; principal; 2018-08-31)
DX: K20.9 Esophagitis, unspecified (principal); E43 Unspecified severe protein-calorie malnutrition; Z68.1 Body mass index [BMI] 19.9 or less, adult; D64.9 Anemia, unspecified; E78.00 Pure hypercholesterolemia, unspecified; G47.00 Insomnia, unspecified; M19.90 Unspecified osteoarthritis, unspecified site; E11.9 Type 2 diabetes mellitus without complications; F02.80 Dementia in other diseases classified elsewhere, unspecified severity, without behavioral disturbance, psychotic disturbance, mood disturbance, and anxiety; G20 Parkinson's disease; G30.9 Alzheimer's disease, unspecified; I10 Essential (primary) hypertension; Z87.440 Personal history of urinary (tract) infections; Z79.01 Long term (current) use of anticoagulants; Z85.46 Personal history of malignant neoplasm of prostate; Z86.73 Personal history of transient ischemic attack (TIA), and cerebral infarction without residual deficits; Z88.8 Allergy status to other drugs, medicaments and biological substances
CPT/HCPCS: 36430; 82271; 86850; 86900; 86901; 86920; 87081; 93005; C9113; G0378; J7050; P9016

== ENCOUNTER 2018-09-27 11:19 | Emergency (ER) | payer MEDICARE, OTHER ==
[~2018-09-27] VITALS: Ht 175.3 cm; Wt 56.0 kg
[~2018-09-27 11:19] MED LIST changes: +BISA5TAB12 PR; +CARB1TAB38 GT; +DOCU250C91 PO; +FE PR; +MOM30 PO; -PIOG15TA6 PO; +SUCR1ORA5 GT; -SUCR1TAB PO
[2018-09-27 11:49] LABS: GLUCOSE,POINT OF CARE 169 MG/DL (70-110)
[2018-09-27] MEDS ORDERED: SODIUM CHLORIDE 0.9% 1,000 ML IV ONE (12:00)
[2018-09-27] MEDS ORDERED: PANTOPRAZOLE SODIUM 40 MG/VIAL IVP ONE (12:00)
[2018-09-27] MEDS ORDERED: ONDANSETRON HCL 4 MG/2 ML VIAL IVP ONE (12:00)
[2018-09-27] MEDS ORDERED: TERA1CAP4 GT (12:03)
[2018-09-27] MEDS ORDERED: ASPI-1182 PO (12:03)
[2018-09-27] MEDS ORDERED: ROPI0.257 GT (12:03)
[2018-09-27 12:27] LABS: BASOPHILS % (AUTO) 0.1 % (0.0-2.0); EOSINOPHILS % (AUTO) 0.1 % (1.0-6.0); HEMATOCRIT 34.5 % (41-53); HEMOGLOBIN 11.1 g/dL (13.5-17.5); LYMPHOCYTES # (AUTO) 0.7 K/uL (1.0-4.8); LYMPHOCYTES % (AUTO) 6.5 % (22.0-44.0); MEAN CORPUSCULAR HEMOGLOBIN 26.8 pg (26.0-34.0); MEAN CORPUSCULAR HGB CONC 32.1 G/dL (31.0-37.0); MEAN CORPUSCULAR VOLUME 84 fL (80-100); MONOCYTES # (AUTO) 0.6 K/uL (0.1-1.0); MONOCYTES % (AUTO) 5.8 % (2.0-9.0); NEUTROPHILS # (AUTO) 8.8 K/uL (1.8-7.7); PLATELET COUNT (AUTO) 202 K/uL (150-450); RED BLOOD CELL COUNT(AUTO) 4.13 MIL/uL (4.50-5.90)
[2018-09-27 12:29] LABS: NEUTROPHILS % (AUTO) 87.5 % (40.0-70.0)
[2018-09-27 12:38] LABS: PROTHROMBIN TIME 10.3 SEC (9.4-11.6)
[2018-09-27 12:49] LABS: ALANINE AMINOTRANSFERASE 18 U/L (12-78); ALBUMIN 2.4 g/dL (3.4-5.0); ALKALINE PHOSPHATASE 75 U/L (46-116); ANION GAP 9 mmol/L (8-16); ASPARTATE AMINOTRANSFERASE 22 U/L (15-37); BILIRUBIN,TOTAL 0.4 mg/dL (0.1-1.0); CALCIUM, TOTAL 8.9 mg/dL (8.8-10.5); CARBON DIOXIDE 29 mmol/L (22-29); CHLORIDE 105 mmol/L (98-107); CREATININE 0.68 mg/dL (0.60-1.30); GLOMERULAR FILTR. RATE CALC > 60 mL/min (>60); GLUCOSE,RANDOM 179 mg/dL (70-110); LIPASE 405 U/L (73-393); POTASSIUM 4.7 mmol/L (3.5-5.1); SODIUM SERUM 143 mmol/L (136-145); UREA NITROGEN, BLOOD 21 mg/dL (7-18)
[2018-09-27 14:02] VITALS: BP 152/84
== END 2018-09-27 14:46 | disposition home or self-care (01) ==
LOC: EMS 11:20
DX: K92.2 Gastrointestinal hemorrhage, unspecified (principal); E11.9 Type 2 diabetes mellitus without complications; I10 Essential (primary) hypertension; G47.00 Insomnia, unspecified; G20 Parkinson's disease; G30.9 Alzheimer's disease, unspecified; F02.80 Dementia in other diseases classified elsewhere, unspecified severity, without behavioral disturbance, psychotic disturbance, mood disturbance, and anxiety; M19.90 Unspecified osteoarthritis, unspecified site; Z79.899 Other long term (current) drug therapy; Z85.46 Personal history of malignant neoplasm of prostate; Z86.73 Personal history of transient ischemic attack (TIA), and cerebral infarction without residual deficits; Z98.890 Other specified postprocedural states; Z86.718 Personal history of other venous thrombosis and embolism; Z88.8 Allergy status to other drugs, medicaments and biological substances
CPT/HCPCS: 36415; 71045; 80053; 82962; 83690; 85025; 85610; 85730; 86850; 86900; 86901; 93005; 96374; 96375; 99285; C9113; J2405; J7030

== ENCOUNTER → 2018-10-16 | Outpatient (CLI) | payer MEDICARE, OTHER ==
[~2018-10-16] MED LIST changes: -ALBU2.5V2 NEB; -ALFU10TA30 GT; -APIX5TAB GT; +ASPI-1182 PO; -CARB-101 GT; -CEFT1FRO3 IV; -IPRNEB IH; +ROPI0.257 GT; +TERA1CAP4 GT
== END | disposition home or self-care (01) ==
LOC: RADMN 12:55
PROVIDERS: ATTEND Internal Medicine
DX: K94.23 Gastrostomy malfunction (principal)
CPT/HCPCS: 49450; 76000; C1769

== ENCOUNTER 2019-05-11 06:51 | Inpatient (IN) | payer MEDICARE, OTHER ==
[~2019-05-11] VITALS: Ht 175.3 cm; Wt 63.0 kg
[~2019-05-11 06:51] MED LIST changes: +ACET650S28 GT; -ACET650S28 PO; +ASPI-1182 GT; -ASPI-1182 PO; +BISA-151 PR; -BISA5TAB12 PR; +DOCU-342 GT; -DOCU250C91 GT; -DOCU250C91 PO; +FAMO20 GT; +FERSL GT; -HYDR-4061 GT; +METO25 GT; -MOM30 PO; +PANT40TA25 GT; -PANT40TA25 PEG; -PANT40TA25 PO; -SUCR1ORA5 GT; +SUCR1TAB GT; -[UNRECOGNIZED DRUG - CODE] TP
[2019-05-11] MEDS ORDERED: FAMOTIDINE 10 MG/ML 2 ML VIAL IVP ONE (07:15)
[2019-05-11] MEDS ORDERED: SODIUM CHLORIDE 0.9% 500 ML IV ONE ×2 (07:15→12:15)
[2019-05-11] MEDS ORDERED: PANTOPRAZOLE SODIUM 40 MG/VIAL IVP ONE (07:15)
[2019-05-11 08:12] LABS: BASOPHILS % (AUTO) 0.2 % (0.0-2.0); EOSINOPHILS % (AUTO) 3.7 % (1.0-6.0); HEMATOCRIT 30.7 % (41-53); HEMOGLOBIN 9.7 g/dL (13.5-17.5); LYMPHOCYTES # (AUTO) 1.8 K/uL (1.0-4.8); LYMPHOCYTES % (AUTO) 21.9 % (22.0-44.0); MEAN CORPUSCULAR HEMOGLOBIN 24.1 pg (26.0-34.0); MEAN CORPUSCULAR HGB CONC 31.5 G/dL (31.0-37.0); MEAN CORPUSCULAR VOLUME 77 fL (80-100); MONOCYTES # (AUTO) 0.8 K/uL (0.1-1.0); MONOCYTES % (AUTO) 9.8 % (2.0-9.0); NEUTROPHILS # (AUTO) 5.2 K/uL (1.8-7.7); NEUTROPHILS % (AUTO) 64.4 % (40.0-70.0); PLATELET COUNT (AUTO) 219 K/uL (150-450); RED BLOOD CELL COUNT(AUTO) 4.01 MIL/uL (4.50-5.90); RED CELL DISTRIBUTION WIDTH 17.5 % (11.5-14.5)
[2019-05-11 08:21] LABS: ANION GAP 3 mmol/L (8-16); CALCIUM, TOTAL 8.7 mg/dL (8.8-10.5); CARBON DIOXIDE 30 mmol/L (22-29); CHLORIDE 109 mmol/L (98-107); CREATININE 0.85 mg/dL (0.60-1.30); GLOMERULAR FILTR. RATE CALC > 60 mL/min (>60); GLUCOSE,RANDOM 222 mg/dL (70-110); POTASSIUM 4.5 mmol/L (3.5-5.1); SODIUM SERUM 142 mmol/L (136-145); UREA NITROGEN, BLOOD 47 mg/dL (7-18)
[2019-05-11 08:24] LABS: PROTHROMBIN TIME 10.1 SEC (9.4-11.6)
[2019-05-11 08:27] LABS: ALANINE AMINOTRANSFERASE 25 U/L (12-78); ALBUMIN 2.6 g/dL (3.4-5.0); ALKALINE PHOSPHATASE 92 U/L (46-116); ASPARTATE AMINOTRANSFERASE 14 U/L (15-37); BILIRUBIN,TOTAL 0.2 mg/dL (0.1-1.0); LIPASE 582 U/L (73-393); TOTAL PROTEIN, SERUM 6.3 g/dL (6.4-8.2)
[2019-05-11 08:35] LABS: LACTIC ACID 2.4 mmol/L (0.4-2.0)
[2019-05-11] MEDS ORDERED: SODIUM CHLORIDE 0.9% 1,000 ML IV ONE ×2 (08:45→18:30)
[2019-05-11] MEDS ORDERED: MIDAZOLAM HCL 2 MG/2 ML VIAL IVP ONE (10:45)
[2019-05-11 11:32] LABS: INFLUENZA TYPE A NEGATIVE FOR TYPE A (NEGATIVE); INFLUENZA TYPE B NEGATIVE FOR TYPE B (NEGATIVE)
[2019-05-11] MEDS ORDERED: CefTRIAXone SODIUM 1 GM/VIAL IM ONE (11:45)
[2019-05-11] MEDS ORDERED: LIDOCAINE/PF 1% 2 ML VIAL IM ONE (11:45)
[2019-05-11] MEDS ORDERED: CefTRIAXone 1 GM/DEXTROSE 50 ML IV ONE (11:45)
[2019-05-11 12:06] LABS: BASOPHILS % (AUTO) 0.2 % (0.0-2.0); EOSINOPHILS % (AUTO) 1.1 % (1.0-6.0); HEMATOCRIT 27.9 % (41-53); HEMOGLOBIN 8.6 g/dL (13.5-17.5); LYMPHOCYTES % (AUTO) 14.5 % (22.0-44.0); MEAN CORPUSCULAR HEMOGLOBIN 23.7 pg (26.0-34.0); MEAN CORPUSCULAR HGB CONC 30.9 G/dL (31.0-37.0); MEAN CORPUSCULAR VOLUME 77 fL (80-100); MONOCYTES # (AUTO) 0.6 K/uL (0.1-1.0); MONOCYTES % (AUTO) 8.2 % (2.0-9.0); NEUTROPHILS # (AUTO) 5.4 K/uL (1.8-7.7); PLATELET COUNT (AUTO) 190 K/uL (150-450); RED BLOOD CELL COUNT(AUTO) 3.64 MIL/uL (4.50-5.90); RED CELL DISTRIBUTION WIDTH 17.2 % (11.5-14.5)
[2019-05-11] MEDS ORDERED: ONDANSETRON HCL 4 MG/2 ML VIAL IVP PRN ×2 (12:15→21:45)
[2019-05-11] MEDS ORDERED: 0.9% SODIUM CHLORIDE 10 ML SYRINGE IVP PRN ×2 (12:15→21:45)
[2019-05-11] MEDS ORDERED: ACETAMINOPHEN 325 MG TABLET PO PRN (12:15)
[2019-05-11 12:27] LABS: APPEARANCE,URINE CLOUDY (CLEAR); BILIRUBIN,URINE NEGATIVE (NEGATIVE); GLUCOSE, URINE (UA) 250 mg/dL (NEGATIVE); KETONES,URINE NEGATIVE (NEGATIVE); LEUKOCYTE ESTERASE ,URINE TRACE (NEGATIVE); NITRATE,URINE NEGATIVE (NEGATIVE); PROTEIN,URINE NEGATIVE (NEGATIVE); UROBILINOGEN,URINE 0.2 mg/dL (<=1.0)
[2019-05-11 12:37] LABS: OCCULT BLOOD,URINE SMALL (NEGATIVE)
[2019-05-11 12:38] LABS: WBC,URINE 0-2 /HPF (0-5)
[2019-05-11 12:39] LABS: BACTERIA,URINE Many /HPF (None Seen)
[2019-05-11 17:03] VITALS: BP 120/83
[2019-05-11 20:04] VITALS: BP 117/73
[2019-05-11] MEDS ORDERED: ALBUMIN HUMAN 25%-25GM/100ML 100 ML IV ONE (21:30)
[2019-05-11 22:00] LABS: HEMATOCRIT 25.7 % (41-53)
[2019-05-11] MEDS: PANTOPRAZOLE SODIUM 80 MG in SODIUM CHLORIDE 0.9% 100 ML IV SCH (23:12)
[2019-05-11 23:53] VITALS: BP 111/66
[2019-05-12] VITALS (10 sets, daily range): BP systolic 107–128; BP diastolic 66–80
[2019-05-12 06:38] LABS: BASOPHILS % (AUTO) 0.3 % (0.0-2.0); EOSINOPHILS % (AUTO) 1.4 % (1.0-6.0); HEMATOCRIT 21.2 % (41-53); LYMPHOCYTES # (AUTO) 1.1 K/uL (1.0-4.8); LYMPHOCYTES % (AUTO) 18.3 % (22.0-44.0); MEAN CORPUSCULAR HEMOGLOBIN 24.2 pg (26.0-34.0); MEAN CORPUSCULAR HGB CONC 31.3 G/dL (31.0-37.0); MEAN CORPUSCULAR VOLUME 77 fL (80-100); MONOCYTES # (AUTO) 0.7 K/uL (0.1-1.0); MONOCYTES % (AUTO) 10.7 % (2.0-9.0); NEUTROPHILS # (AUTO) 4.3 K/uL (1.8-7.7); NEUTROPHILS % (AUTO) 69.3 % (40.0-70.0); PLATELET COUNT (AUTO) 160 K/uL (150-450); RED BLOOD CELL COUNT(AUTO) 2.75 MIL/uL (4.50-5.90); RED CELL DISTRIBUTION WIDTH 17.2 % (11.5-14.5)
[2019-05-12 06:46] LABS: ANION GAP 4 mmol/L (8-16); CALCIUM, TOTAL 8.5 mg/dL (8.8-10.5); CARBON DIOXIDE 30 mmol/L (22-29); CHLORIDE 115 mmol/L (98-107); CREATININE 0.74 mg/dL (0.60-1.30); GLUCOSE,RANDOM 174 mg/dL (70-110); POTASSIUM 4.1 mmol/L (3.5-5.1); SODIUM SERUM 149 mmol/L (136-145); UREA NITROGEN, BLOOD 31 mg/dL (7-18)
[2019-05-12 06:48] LABS: GLOMERULAR FILTR. RATE CALC > 60 mL/min (>60)
[2019-05-12 06:55] LABS: HEMOGLOBIN 6.6 g/dL (13.5-17.5)
[2019-05-12] MEDS: PANTOPRAZOLE SODIUM 80 MG in SODIUM CHLORIDE 0.9% 100 ML IV SCH (08:37)
[2019-05-12] MEDS ORDERED: FentaNYL CITRATE-PF 100 MCG/2 ML VIAL ONE (12:20)
[2019-05-12] MEDS ORDERED: MIDAZOLAM HCL 5 MG/ML VIAL ONE (12:20)
[2019-05-12] MEDS: ACETAMINOPHEN 650 MG/20.3 ML SOLUTION UDCUP GT PRN (15:22)
[2019-05-12] MEDS: ALUMINUM HYDROX GT SCH (16:00)
[2019-05-12] MEDS: MAG CARB GT SCH (16:00)
[2019-05-12] MEDS: ALGIN GT SCH (16:00)
[2019-05-12 16:02] LABS: HEMATOCRIT 28.2 % (41-53); HEMOGLOBIN 8.9 g/dL (13.5-17.5)
[2019-05-12 20:27] LABS: HEMOGLOBIN 8.7 g/dL (13.5-17.5)
[2019-05-13 05:19] VITALS: BP 132/80
[2019-05-13 06:51] LABS: BASOPHILS % (AUTO) 0.2 % (0.0-2.0); EOSINOPHILS % (AUTO) 1.3 % (1.0-6.0); HEMATOCRIT 27.6 % (41-53); HEMOGLOBIN 8.8 g/dL (13.5-17.5); LYMPHOCYTES # (AUTO) 1.2 K/uL (1.0-4.8); MEAN CORPUSCULAR HEMOGLOBIN 26.2 pg (26.0-34.0); MEAN CORPUSCULAR HGB CONC 31.9 G/dL (31.0-37.0); MEAN CORPUSCULAR VOLUME 82 fL (80-100); MONOCYTES # (AUTO) 0.7 K/uL (0.1-1.0); MONOCYTES % (AUTO) 7.2 % (2.0-9.0); NEUTROPHILS # (AUTO) 7.9 K/uL (1.8-7.7); NEUTROPHILS % (AUTO) 79.3 % (40.0-70.0); PLATELET COUNT (AUTO) 180 K/uL (150-450); RED BLOOD CELL COUNT(AUTO) 3.36 MIL/uL (4.50-5.90); RED CELL DISTRIBUTION WIDTH 20.6 % (11.5-14.5)
[2019-05-13 07:16] LABS: ANION GAP 11 mmol/L (8-16); CALCIUM, TOTAL 8.8 mg/dL (8.8-10.5); CARBON DIOXIDE 25 mmol/L (22-29); CHLORIDE 116 mmol/L (98-107); CREATININE 0.75 mg/dL (0.60-1.30); GLUCOSE,RANDOM 156 mg/dL (70-110); POTASSIUM 3.6 mmol/L (3.5-5.1); SODIUM SERUM 152 mmol/L (136-145); UREA NITROGEN, BLOOD 20 mg/dL (7-18)
[2019-05-13 07:19] LABS: GLOMERULAR FILTR. RATE CALC > 60 mL/min (>60)
[2019-05-13 07:35] VITALS: BP 133/80
[2019-05-13] MEDS: PANTOPRAZOLE SODIUM 40 MG/VIAL IVP SCH (07:59)
[2019-05-13] MEDS: ACETAMINOPHEN 650 MG/20.3 ML SOLUTION UDCUP GT PRN (09:25)
[2019-05-13] MEDS: ALGIN GT SCH ×3 (09:26→17:53)
[2019-05-13] MEDS: MAG CARB GT SCH ×3 (09:26→17:53)
[2019-05-13] MEDS: ALUMINUM HYDROX GT SCH ×3 (09:26→17:53)
[2019-05-13] MEDS: DEXTROSE 5%-WATER 1,000 ML IV SCH (10:20)
[2019-05-13 11:52] VITALS: BP 129/71
[2019-05-13 16:03] VITALS: BP 131/69
[2019-05-13 20:11] VITALS: BP 116/66
[2019-05-13 23:54] VITALS: BP 114/65
[2019-05-14] VITALS (7 sets, daily range): BP systolic 106–136; BP diastolic 52–84
[2019-05-14] MEDS: DEXTROSE 5%-WATER 1,000 ML IV SCH ×2 (05:31→21:05)
[2019-05-14 06:26] LABS: BASOPHILS % (AUTO) 0.4 % (0.0-2.0); EOSINOPHILS % (AUTO) 1.9 % (1.0-6.0); HEMATOCRIT 25.7 % (41-53); HEMOGLOBIN 8.3 g/dL (13.5-17.5); LYMPHOCYTES # (AUTO) 0.8 K/uL (1.0-4.8); LYMPHOCYTES % (AUTO) 10.6 % (22.0-44.0); MEAN CORPUSCULAR HEMOGLOBIN 26.1 pg (26.0-34.0); MEAN CORPUSCULAR HGB CONC 32.1 G/dL (31.0-37.0); MEAN CORPUSCULAR VOLUME 81 fL (80-100); MONOCYTES # (AUTO) 0.6 K/uL (0.1-1.0); NEUTROPHILS # (AUTO) 6.3 K/uL (1.8-7.7); NEUTROPHILS % (AUTO) 79.1 % (40.0-70.0); PLATELET COUNT (AUTO) 153 K/uL (150-450); RED BLOOD CELL COUNT(AUTO) 3.16 MIL/uL (4.50-5.90); RED CELL DISTRIBUTION WIDTH 21.4 % (11.5-14.5)
[2019-05-14 06:37] LABS: ANION GAP 7 mmol/L (8-16); CALCIUM, TOTAL 8.4 mg/dL (8.8-10.5); CARBON DIOXIDE 29 mmol/L (22-29); CHLORIDE 114 mmol/L (98-107); CREATININE 0.76 mg/dL (0.60-1.30); GLUCOSE,RANDOM 207 mg/dL (70-110); POTASSIUM 3.5 mmol/L (3.5-5.1); SODIUM SERUM 150 mmol/L (136-145); UREA NITROGEN, BLOOD 15 mg/dL (7-18)
[2019-05-14 06:42] LABS: GLOMERULAR FILTR. RATE CALC > 60 mL/min (>60)
[2019-05-14] MEDS: ALUMINUM HYDROX GT SCH ×3 (08:00→15:41)
[2019-05-14] MEDS: ALGIN GT SCH ×3 (08:00→15:41)
[2019-05-14] MEDS: MAG CARB GT SCH ×3 (08:00→15:41)
[2019-05-14] MEDS: PANTOPRAZOLE SODIUM 40 MG/VIAL IVP SCH (08:30)
[2019-05-14] MEDS ORDERED: ONDANSETRON HCL 4 MG/2 ML VIAL IVP PRN (13:45)
[2019-05-14] MEDS ORDERED: 0.9% SODIUM CHLORIDE 10 ML SYRINGE IVP PRN ×2 (13:45)
[2019-05-14] MEDS ORDERED: ACETAMINOPHEN 325 MG TABLET PO PRN (13:45)
[2019-05-14] MEDS ORDERED: ALBUTEROL SULFATE 2.5 MG/0.5 ML NEB SOLUTION NEB PRN (13:45)
[2019-05-14] MEDS ORDERED: IPRATROPIUM BROMIDE 0.5 MG/2.5 ML NEB SOLUTION NEB PRN (13:45)
[2019-05-14] MEDS: PIPERACILLIN/TAZO 3.375 GM/D5W 50 ML IV SCH ×2 (15:11→21:01)
[2019-05-14] MEDS: POLYETHYLENE GLYCOL 3350 17 GM PACKET GT SCH ×2 (15:31→21:24)
[2019-05-14] MEDS: ESCITALOPRAM OXALATE 10 MG TABLET GT SCH (15:32)
[2019-05-14] MEDS: HYDROGEN PEROXIDE 473 ML SOLUTION TP SCH (15:32)
[2019-05-14] MEDS: ROPINIRole HCL 0.25 MG TABLET GT SCH ×2 (15:39→21:23)
[2019-05-14] MEDS: CARBIDOPA/LEVODOPA 25-250 MG TABLET GT SCH ×2 (18:42→21:23)
[2019-05-14] MEDS: DOCUSATE SODIUM 100 MG/10 ML LIQUID UDCUP GT SCH ×2 (18:43→21:24)
[2019-05-14] MEDS: FERROUS SULFATE 300 MG/5 ML LIQUID UDCUP GT SCH (18:43)
[2019-05-14] MEDS: QUEtiapine FUMARATE 25 MG TABLET GT SCH (21:23)
[2019-05-14] MEDS: ATORVASTATIN CALCIUM 20 MG TABLET PO SCH (21:23)
[2019-05-14] MEDS ORDERED: SODIUM CHLORIDE 0.9% 250 ML IV ONE (21:26)
[2019-05-15] MEDS: ALGIN GT SCH ×3 (00:38→15:56)
[2019-05-15] MEDS: ALUMINUM HYDROX GT SCH ×3 (00:38→15:56)
[2019-05-15] MEDS: MAG CARB GT SCH ×3 (00:38→15:56)
[2019-05-15] MEDS: PIPERACILLIN/TAZO 3.375 GM/D5W 50 ML IV SCH ×4 (01:31→20:17)
[2019-05-15 04:15] VITALS: BP 119/69
[2019-05-15 08:07] VITALS: BP 117/53
[2019-05-15] MEDS: POLYETHYLENE GLYCOL 3350 17 GM PACKET GT SCH ×2 (08:47→20:17)
[2019-05-15] MEDS: DOCUSATE SODIUM 100 MG/10 ML LIQUID UDCUP GT SCH ×3 (08:48→20:17)
[2019-05-15] MEDS: FERROUS SULFATE 300 MG/5 ML LIQUID UDCUP GT SCH ×2 (08:48→18:00)
[2019-05-15] MEDS: ESCITALOPRAM OXALATE 10 MG TABLET GT SCH (08:49)
[2019-05-15] MEDS: ROPINIRole HCL 0.25 MG TABLET GT SCH ×3 (08:49→20:17)
[2019-05-15] MEDS: PANTOPRAZOLE SODIUM 40 MG/VIAL IVP SCH (08:49)
[2019-05-15] MEDS: CARBIDOPA/LEVODOPA 25-250 MG TABLET GT SCH ×4 (08:49→20:17)
[2019-05-15 11:02] VITALS: BP 124/65
[2019-05-15 11:52] LABS: GLUCOMETER DEV NAME(LOC) 5S.1; GLUCOSE,POINT OF CARE 238 MG/DL (70-110)
[2019-05-15 14:07] LABS: HEMOGLOBIN 8.3 g/dL (13.5-17.5); LYMPHOCYTES # (AUTO) 0.9 K/uL (1.0-4.8); RED CELL DISTRIBUTION WIDTH 21.6 % (11.5-14.5)
[2019-05-15 14:28] LABS: BASOPHILS % (AUTO) 0.1 % (0.0-2.0); HEMATOCRIT 26.2 % (41-53); LYMPHOCYTES % (AUTO) 9.2 % (22.0-44.0); MEAN CORPUSCULAR HEMOGLOBIN 25.7 pg (26.0-34.0); MEAN CORPUSCULAR HGB CONC 31.6 G/dL (31.0-37.0); MEAN CORPUSCULAR VOLUME 81 fL (80-100); MONOCYTES # (AUTO) 0.7 K/uL (0.1-1.0); MONOCYTES % (AUTO) 6.9 % (2.0-9.0); NEUTROPHILS % (AUTO) 81.8 % (40.0-70.0); PLATELET COUNT (AUTO) 177 K/uL (150-450); RED BLOOD CELL COUNT(AUTO) 3.23 MIL/uL (4.50-5.90)
[2019-05-15 14:29] LABS: CHOL/HDL RATIO 1.9 (4.2-7.3); THYROID STIMULATING HORMONE 0.4 uIU/mL (0.36-3.74)
[2019-05-15 14:41] LABS: HEMOGLOBIN A1C 6.8 % (4.5-6.2)
[2019-05-15 15:31] LABS: GLUCOMETER DEV NAME(LOC) 5S.1; GLUCOSE,POINT OF CARE 211 MG/DL (70-110)
[2019-05-15 15:48] VITALS: BP 126/61
[2019-05-15] MEDS: HYDROGEN PEROXIDE 473 ML SOLUTION TP SCH (15:59)
[2019-05-15 19:29] VITALS: BP 125/70
[2019-05-15] MEDS: ATORVASTATIN CALCIUM 20 MG TABLET PO SCH (20:17)
[2019-05-15] MEDS: QUEtiapine FUMARATE 25 MG TABLET GT SCH (20:17)
== END 2019-05-15 22:35 | DRG 380 ==
LOC: EMS 06:52 → 5N 13:08
PROVIDERS: ADMIT Internal Medicine; ATTEND Internal Medicine
PROC: 30233N1 Transfusion of Nonautologous Red Blood Cells into Peripheral Vein, Percutaneous Approach (ICD-10-PCS; 2019-05-12)
PROC: 0DJ08ZZ Inspection of Upper Intestinal Tract, Via Natural or Artificial Opening Endoscopic (ICD-10-PCS; principal; 2019-05-12 12:30)
DX: K22.11 Ulcer of esophagus with bleeding (principal); E43 Unspecified severe protein-calorie malnutrition; K94.22 Gastrostomy infection; E87.0 Hyperosmolality and hypernatremia; K29.71 Gastritis, unspecified, with bleeding; K92.0 Hematemesis; G20 Parkinson's disease; E11.9 Type 2 diabetes mellitus without complications; G30.9 Alzheimer's disease, unspecified; D63.8 Anemia in other chronic diseases classified elsewhere; E11.40 Type 2 diabetes mellitus with diabetic neuropathy, unspecified; E78.5 Hyperlipidemia, unspecified; E86.0 Dehydration; F02.80 Dementia in other diseases classified elsewhere, unspecified severity, without behavioral disturbance, psychotic disturbance, mood disturbance, and anxiety; I10 Essential (primary) hypertension; Z82.49 Family history of ischemic heart disease and other diseases of the circulatory system; Z83.3 Family history of diabetes mellitus; Z85.46 Personal history of malignant neoplasm of prostate; Z86.718 Personal history of other venous thrombosis and embolism; Z86.73 Personal history of transient ischemic attack (TIA), and cerebral infarction without residual deficits; Z87.19 Personal history of other diseases of the digestive system; Z68.20 Body mass index [BMI] 20.0-20.9, adult
CPT/HCPCS: 76999; 82271; 83036; 83605; 83735; 84443; 85014; 85018; 86850; 86900; 86901; 86920; 87040; 87070; 87081; 87086; 87205; 87804; 93005; 93970; 99291; C9113; J0696; J2250; J2543; J3010; J3490; J7030; J7040; J7050; J7060; P9016; P9046

== ENCOUNTER 2019-06-11 11:11 | Inpatient (IN) | payer MEDICARE, OTHER ==
[~2019-06-11] VITALS: Ht 167.6 cm; Wt 67.4 kg
[2019-06-11] MEDS ORDERED: NUT.237L53 GT (11:44)
[2019-06-11] MEDS ORDERED: LIDOCAINE/PF 2% 5 ML VIAL INJ ONE (12:00)
[2019-06-11] MEDS ORDERED: PROPOFOL 1% 20 ML VIAL IVP ONE (12:00)
[2019-06-11 12:18] LABS: BASOPHILS % (AUTO) 0.1 % (0.0-2.0); EOSINOPHILS % (AUTO) 0.1 % (1.0-6.0); HEMATOCRIT 22.7 % (41-53); LYMPHOCYTES # (AUTO) 0.7 K/uL (1.0-4.8); LYMPHOCYTES % (AUTO) 8.7 % (22.0-44.0); MEAN CORPUSCULAR VOLUME 84 fL (80-100); MONOCYTES # (AUTO) 0.5 K/uL (0.1-1.0); MONOCYTES % (AUTO) 6.1 % (2.0-9.0); NEUTROPHILS # (AUTO) 6.7 K/uL (1.8-7.7); PLATELET COUNT (AUTO) 226 K/uL (150-450); RETICULOCYTE % (AUTO) 6.1 % (0.5-2.3)
[2019-06-11 12:24] LABS: ANION GAP 9 mmol/L (8-16); CALCIUM, TOTAL 8.6 mg/dL (8.8-10.5); CARBON DIOXIDE 28 mmol/L (22-29); CHLORIDE 102 mmol/L (98-107); CREATININE 0.94 mg/dL (0.60-1.30); GLOMERULAR FILTR. RATE CALC > 60 mL/min (>60); GLUCOSE,RANDOM 314 mg/dL (70-110); POTASSIUM 4.9 mmol/L (3.5-5.1); SODIUM SERUM 139 mmol/L (136-145); UREA NITROGEN, BLOOD 39 mg/dL (7-18)
[2019-06-11 12:27] LABS: % IRON SATURATION 23.7 % (30-44); IRON, SERUM 55 mcg/dL (50-175); TOTAL IRON BINDING CAPACITY 232 mcg/dL (250-450)
[2019-06-11 12:30] LABS: ALANINE AMINOTRANSFERASE 12 U/L (12-78); ALBUMIN 2.2 g/dL (3.4-5.0); ALKALINE PHOSPHATASE 79 U/L (46-116); ASPARTATE AMINOTRANSFERASE 17 U/L (15-37); BILIRUBIN,TOTAL 0.3 mg/dL (0.1-1.0); INR 1.1 (0.9-1.1); LIPASE 295 U/L (73-393); PROTHROMBIN TIME 10.7 SEC (9.4-11.6); TOTAL PROTEIN, SERUM 5.6 g/dL (6.4-8.2)
[2019-06-11] MEDS ORDERED: PANTOPRAZOLE SODIUM 40 MG/VIAL IVP ONE (12:30)
[2019-06-11 12:35] LABS: LACTIC ACID 4.3 mmol/L (0.4-2.0)
[2019-06-11 12:40] LABS: B-TYPE NATRIURETIC PEPTIDE 40 pg/mL (0-100)
[2019-06-11 12:45] LABS: OCCULT BLOOD,GASTRIC FLUID POSITIVE (NEGATIVE)
[2019-06-11 12:52] LABS: APPEARANCE,URINE CLEAR (CLEAR); BILIRUBIN,URINE NEGATIVE (NEGATIVE); GLUCOSE, URINE (UA) 100 mg/dL (NEGATIVE); KETONES,URINE NEGATIVE (NEGATIVE); LEUKOCYTE ESTERASE ,URINE NEGATIVE (NEGATIVE); NITRATE,URINE NEGATIVE (NEGATIVE); OCCULT BLOOD,URINE NEGATIVE (NEGATIVE); PH,URINE 5.5 (5.0-8.0); PROTEIN,URINE NEGATIVE (NEGATIVE); UROBILINOGEN,URINE 0.2 mg/dL (<=1.0)
[2019-06-11 13:00] LABS: BACTERIA,URINE None Seen /HPF (None Seen); RBC,URINE None Seen /HPF (0-2); WBC,URINE None Seen /HPF (0-5)
[2019-06-11] MEDS ORDERED: PANTOPRAZOLE SODIUM 80 MG in SODIUM CHLORIDE 0.9% 100 ML IV SCH (14:30)
[2019-06-11] MEDS ORDERED: DEXTROSE 50%-WATER 25 GM/50 ML SYRINGE IVP PRN (14:30)
[2019-06-11] MEDS ORDERED: ACETAMINOPHEN 325 MG TABLET PO PRN (14:30)
[2019-06-11] MEDS ORDERED: SODIUM CHLORIDE 0.9% 1,000 ML ONE (16:22)
[2019-06-11 16:55] VITALS: BP 120/66
[2019-06-11 18:57] LABS: BASOPHILS % (AUTO) 0.1 % (0.0-2.0); EOSINOPHILS % (AUTO) 0 % (1.0-6.0); HEMATOCRIT 23.5 % (41-53); HEMOGLOBIN 7.4 g/dL (13.5-17.5); LYMPHOCYTES # (AUTO) 0.8 K/uL (1.0-4.8); LYMPHOCYTES % (AUTO) 9.5 % (22.0-44.0); MEAN CORPUSCULAR HEMOGLOBIN 26.5 pg (26.0-34.0); MEAN CORPUSCULAR HGB CONC 31.7 G/dL (31.0-37.0); MEAN CORPUSCULAR VOLUME 84 fL (80-100); MONOCYTES # (AUTO) 0.6 K/uL (0.1-1.0); MONOCYTES % (AUTO) 7.3 % (2.0-9.0); NEUTROPHILS # (AUTO) 7.2 K/uL (1.8-7.7); NEUTROPHILS % (AUTO) 83.1 % (40.0-70.0); PLATELET COUNT (AUTO) 181 K/uL (150-450); RED BLOOD CELL COUNT(AUTO) 2.81 MIL/uL (4.50-5.90); RED CELL DISTRIBUTION WIDTH 20.3 % (11.5-14.5)
[2019-06-11 20:50] VITALS: BP 124/76
[2019-06-11] MEDS: OMEPRAZOLE 20 MG CAPSULE GT SCH (21:46)
[2019-06-11] MEDS: DOCUSATE SODIUM 100 MG CAPSULE PO SCH (21:46)
[2019-06-12] VITALS (7 sets, daily range): BP systolic 109–138; BP diastolic 52–85
[2019-06-12 06:49] LABS: BASOPHILS % (AUTO) 0.3 % (0.0-2.0); EOSINOPHILS % (AUTO) 0 % (1.0-6.0); HEMATOCRIT 21.4 % (41-53); MEAN CORPUSCULAR HEMOGLOBIN 26.7 pg (26.0-34.0); MEAN CORPUSCULAR HGB CONC 31.5 G/dL (31.0-37.0); MEAN CORPUSCULAR VOLUME 85 fL (80-100); MONOCYTES # (AUTO) 0.6 K/uL (0.1-1.0); MONOCYTES % (AUTO) 9.8 % (2.0-9.0); NEUTROPHILS % (AUTO) 74.9 % (40.0-70.0); PLATELET COUNT (AUTO) 208 K/uL (150-450); RED BLOOD CELL COUNT(AUTO) 2.52 MIL/uL (4.50-5.90); RED CELL DISTRIBUTION WIDTH 20.4 % (11.5-14.5)
[2019-06-12 07:03] LABS: GLUCOMETER DEV NAME(LOC) 5N.2; GLUCOSE,POINT OF CARE 259 MG/DL (70-110)
[2019-06-12 07:04] LABS: HEMOGLOBIN 6.7 g/dL (13.5-17.5)
[2019-06-12] MEDS: DOCUSATE SODIUM 100 MG CAPSULE PO SCH (08:51)
[2019-06-12] MEDS: OMEPRAZOLE 20 MG CAPSULE GT SCH (09:00)
[2019-06-12 10:09] LABS: ABG METHEMOGLOBIN 0.3 % (0.0-1.5); SOURCE, BLOOD GAS ARTERIAL; TEMPERATURE, FAHRENHEIT, BG 98.6 FAHREN (96.0-98.6)
[2019-06-12] MEDS ORDERED: DEXTROSE 50%-WATER 25 GM/50 ML SYRINGE IVP PRN (10:15)
[2019-06-12] MEDS ORDERED: SODIUM CHLORIDE 0.9% 250 ML IV ONE ×3 (11:16→18:09)
[2019-06-12] MEDS: PIPERACILLIN/TAZO 3.375 GM/D5W 50 ML IV SCH ×3 (11:19→23:26)
[2019-06-12 11:59] LABS: ABG A-A DIFF O2 26.6 mmHg (10-20.0); ABG BASE EXCESS 5.5 mmol/L (-2.0-3.0); ABG CARBOXYHEMOGLOBIN 1.8 % (0.0-1.5); ABG OXYGEN CONTENT 9.1 mL/dL (15.0-23.0); ABG OXYGEN SATURATION 95.3 % (95.0-98.0); ABG OXYHEMOGLOBIN 93.3 % (94.0-100.0); ABG PCO2 39 mmHg (35-45); ABG PH 7.484 (7.35-7.450)
[2019-06-12 12:02] LABS: ABG TOTAL HEMOGLOBIN 6.8 G/dL (12.0-18.0)
[2019-06-12 12:03] LABS: O2 DEVICE,BLOOD GAS ROOM AIR (ROOM AIR); SITE, BLOOD GAS LFT RADIAL
[2019-06-12] MEDS ORDERED: PIPERACILLIN/TAZO 3.375 GM/D5W 50 ML IV SCH (13:45)
[2019-06-12] MEDS ORDERED: 0.9% SODIUM CHLORIDE 10 ML SYRINGE IVP PRN ×3 (13:45)
[2019-06-12] MEDS ORDERED: HEPARIN SODIUM,PORCINE 5,000 UNITS/ML VIAL SQ SCH (13:45)
[2019-06-12] MEDS ORDERED: MORPHINE SULFATE 2 MG/ML SYRINGE IVP PRN ×2 (13:45)
[2019-06-12] MEDS ORDERED: HYDROCODONE/ACETAMINOPHEN 5-325 MG TABLET GT PRN (13:45)
[2019-06-12] MEDS: METOPROLOL TARTRATE 25 MG TABLET GT SCH ×2 (13:45→20:29)
[2019-06-12] MEDS ORDERED: ALBUTEROL SULFATE 2.5 MG/0.5 ML NEB SOLUTION NEB PRN ×2 (13:45)
[2019-06-12] MEDS ORDERED: [UNRECOGNIZED DRUG - OTHER] GT SCH (13:45)
[2019-06-12] MEDS ORDERED: PANTOPRAZOLE SODIUM 40 MG DR TABLET PO SCH (13:45)
[2019-06-12] MEDS ORDERED: ACETAMINOPHEN 325 MG TABLET PO PRN (13:45)
[2019-06-12] MEDS ORDERED: [UNRECOGNIZED DRUG - OTHER] IV PRN (13:45)
[2019-06-12] MEDS ORDERED: IPRATROPIUM BROMIDE 0.5 MG/2.5 ML NEB SOLUTION NEB PRN ×2 (13:45)
[2019-06-12] MEDS ORDERED: ONDANSETRON HCL 4 MG/2 ML VIAL IVP PRN ×2 (13:45)
[2019-06-12] MEDS ORDERED: HYDROCODONE/ACETAMINOPHEN 5-325 MG TABLET PO PRN (13:45)
[2019-06-12] MEDS ORDERED: ACETAMINOPHEN 325 MG TABLET GT PRN (13:45)
[2019-06-12] MEDS ORDERED: SODIUM CHLORIDE 0.9% 500 ML IV ONE (14:00)
[2019-06-12] MEDS ORDERED: VANCOMYCIN HCL 1 GM/D5% WATER 200 ML IV ONE (15:00)
[2019-06-12] MEDS: DOCUSATE SODIUM 100 MG/10 ML LIQUID UDCUP GT SCH ×2 (16:00→20:29)
[2019-06-12] MEDS ORDERED: DOCUSATE SODIUM 250 MG CAPSULE PO SCH ×2 (16:00)
[2019-06-12] MEDS: TERAZOSIN HCL 5 MG CAPSULE GT SCH (16:00)
[2019-06-12] MEDS: CARBIDOPA/LEVODOPA 25-250 MG TABLET GT SCH ×2 (16:01→21:49)
[2019-06-12] MEDS: ROPINIRole HCL 0.25 MG TABLET GT SCH ×2 (16:01→20:30)
[2019-06-12] MEDS: ATORVASTATIN CALCIUM 20 MG TABLET GT SCH (20:29)
[2019-06-12] MEDS: FAMOTIDINE 20 MG TABLET GT SCH (20:29)
[2019-06-12] MEDS: QUEtiapine FUMARATE 25 MG TABLET GT SCH (20:31)
[2019-06-12 20:38] LABS: GLUCOMETER DEV NAME(LOC) 5S.2A; GLUCOSE,POINT OF CARE 222 MG/DL (70-110)
[2019-06-12 20:38] LABS: GLUCOMETER DEV NAME(LOC) 5S.2A; GLUCOSE,POINT OF CARE 236 MG/DL (70-110)
[2019-06-12] MEDS ORDERED: ATORVASTATIN CALCIUM 20 MG TABLET PO SCH (21:00)
[2019-06-12] MEDS: HEPARIN SODIUM,PORCINE 5,000 UNITS/ML VIAL SQ SCH (21:00)
[2019-06-12] MEDS: INSULIN LISPRO 100 UNITS/ML SQ PRN (23:32)
[2019-06-13] VITALS (15 sets, daily range): BP systolic 10–118; BP diastolic 53–64
[2019-06-13] MEDS: PIPERACILLIN/TAZO 3.375 GM/D5W 50 ML IV SCH ×3 (05:58→21:45)
[2019-06-13] MEDS: INSULIN LISPRO 100 UNITS/ML SQ PRN ×2 (06:17→18:08)
[2019-06-13] MEDS ORDERED: PANTOPRAZOLE SODIUM 40 MG DR TABLET PO SCH (06:30)
[2019-06-13] MEDS: METOPROLOL TARTRATE 25 MG TABLET GT SCH ×2 (08:00→20:45)
[2019-06-13] MEDS: DOCUSATE SODIUM 100 MG/10 ML LIQUID UDCUP GT SCH ×3 (08:00→20:45)
[2019-06-13] MEDS: HEPARIN SODIUM,PORCINE 5,000 UNITS/ML VIAL SQ SCH ×2 (08:01→20:45)
[2019-06-13] MEDS: VANCOMYCIN HCL 750 MG in DEXTROSE 5%-WATER 250 ML IV SCH ×2 (08:06→19:12)
[2019-06-13] MEDS: CARBIDOPA/LEVODOPA 25-250 MG TABLET GT SCH ×4 (08:07→20:44)
[2019-06-13] MEDS: ROPINIRole HCL 0.25 MG TABLET GT SCH ×3 (08:08→20:44)
[2019-06-13] MEDS: TERAZOSIN HCL 5 MG CAPSULE GT SCH (08:08)
[2019-06-13] MEDS: FAMOTIDINE 20 MG TABLET GT SCH ×2 (08:08→20:44)
[2019-06-13] MEDS: OMEPRAZOLE 20 MG CAPSULE GT SCH (08:08)
[2019-06-13] MEDS ORDERED: [UNRECOGNIZED DRUG - OTHER] TP SCH (09:00)
[2019-06-13 09:53] LABS: BASOPHILS % (AUTO) 0.4 % (0.0-2.0); EOSINOPHILS % (AUTO) 0.3 % (1.0-6.0); LYMPHOCYTES # (AUTO) 0.9 K/uL (1.0-4.8); MEAN CORPUSCULAR HEMOGLOBIN 27.1 pg (26.0-34.0); MEAN CORPUSCULAR HGB CONC 32.3 G/dL (31.0-37.0); MEAN CORPUSCULAR VOLUME 84 fL (80-100); MONOCYTES # (AUTO) 0.5 K/uL (0.1-1.0); MONOCYTES % (AUTO) 11.3 % (2.0-9.0); PLATELET COUNT (AUTO) 151 K/uL (150-450); RED BLOOD CELL COUNT(AUTO) 2.43 MIL/uL (4.50-5.90); RED CELL DISTRIBUTION WIDTH 18.6 % (11.5-14.5)
[2019-06-13 09:58] LABS: HEMATOCRIT 20.4 % (41-53); HEMOGLOBIN 6.6 g/dL (13.5-17.5)
[2019-06-13 10:03] LABS: INR 1.1 (0.9-1.1); PROTHROMBIN TIME 11.1 SEC (9.4-11.6)
[2019-06-13 10:04] LABS: HEMOGLOBIN A1C 5.7 % (4.5-6.2)
[2019-06-13 10:16] LABS: ALANINE AMINOTRANSFERASE 6 U/L (12-78); ALBUMIN 2.2 g/dL (3.4-5.0); ALKALINE PHOSPHATASE 67 U/L (46-116); ANION GAP 4 mmol/L (8-16); ASPARTATE AMINOTRANSFERASE 20 U/L (15-37); BILIRUBIN,TOTAL 0.8 mg/dL (0.1-1.0); CALCIUM, TOTAL 8.2 mg/dL (8.8-10.5); CARBON DIOXIDE 31 mmol/L (22-29); CHLORIDE 108 mmol/L (98-107); CHOL/HDL RATIO 2.3 (4.2-7.3); CHOLESTEROL 82 mg/dL (131-200); CREATININE 1.01 mg/dL (0.60-1.30); GLUCOSE,RANDOM 222 mg/dL (70-110); HDL CHOLESTEROL 35 mg/dL (40-60); LDL CHOL (CALC.) 31 mg/dL (0-130); POTASSIUM 3.3 mmol/L (3.5-5.1); SODIUM SERUM 143 mmol/L (136-145); THYROID STIMULATING HORMONE 1.04 uIU/mL (0.36-3.74); TOTAL PROTEIN, SERUM 5.2 g/dL (6.4-8.2); TRIGLYCERIDES 81 mg/dL (15-150); UREA NITROGEN, BLOOD 22 mg/dL (7-18)
[2019-06-13 10:17] LABS: GLOMERULAR FILTR. RATE CALC > 60 mL/min (>60)
[2019-06-13 11:35] LABS: GLUCOMETER DEV NAME(LOC) 5S.2A; GLUCOSE,POINT OF CARE 247 MG/DL (70-110)
[2019-06-13 11:58] LABS: GLUCOMETER DEV NAME(LOC) 5S.2A; GLUCOSE,POINT OF CARE 216 MG/DL (70-110)
[2019-06-13] MEDS ORDERED: SODIUM CHLORIDE 0.9% 250 ML IV ONE (12:16)
[2019-06-13] MEDS ORDERED: POTASSIUM CHLORIDE 10% 40 MEQ/30 ML LIQUID UDCUP PEG PRN (13:00)
[2019-06-13] MEDS ORDERED: POTASSIUM CHL 10 MEQ/WATER 50 ML IV PRN (13:00)
[2019-06-13] MEDS: POTASSIUM CHLORIDE 10% 40 MEQ/30 ML LIQUID UDCUP PEG PRN (14:13)
[2019-06-13 18:05] LABS: GLUCOMETER DEV NAME(LOC) 5N.2; GLUCOSE,POINT OF CARE 171 MG/DL (70-110)
[2019-06-13 19:22] LABS: GLUCOMETER DEV NAME(LOC) 5S.2A; GLUCOSE,POINT OF CARE 177 MG/DL (70-110)
[2019-06-13] MEDS ORDERED: SODIUM CHLORIDE 0.9% 100 ML ONE (20:13)
[2019-06-13] MEDS: QUEtiapine FUMARATE 25 MG TABLET GT SCH (20:44)
[2019-06-13] MEDS: ATORVASTATIN CALCIUM 20 MG TABLET GT SCH (20:44)
[2019-06-13] MEDS ORDERED: SODIUM CHLORIDE 0.9% 500 ML IV ONE (22:40)
[2019-06-14] VITALS (10 sets, daily range): BP systolic 110–125; BP diastolic 54–74
[2019-06-14] MEDS: PIPERACILLIN/TAZO 3.375 GM/D5W 50 ML IV SCH (04:16)
[2019-06-14] MEDS: INSULIN LISPRO 100 UNITS/ML SQ PRN ×2 (06:20→18:08)
[2019-06-14 07:08] LABS: GLUCOMETER DEV NAME(LOC) 5N.2; GLUCOSE,POINT OF CARE 217 MG/DL (70-110)
[2019-06-14 07:13] LABS: ALANINE AMINOTRANSFERASE 9 U/L (12-78); ALBUMIN 2.2 g/dL (3.4-5.0); ALKALINE PHOSPHATASE 68 U/L (46-116); ANION GAP 4 mmol/L (8-16); ASPARTATE AMINOTRANSFERASE 24 U/L (15-37); BILIRUBIN,TOTAL 1.3 mg/dL (0.1-1.0); CALCIUM, TOTAL 8.1 mg/dL (8.8-10.5); CARBON DIOXIDE 29 mmol/L (22-29); CHLORIDE 108 mmol/L (98-107); CREATININE 0.92 mg/dL (0.60-1.30); GLUCOSE,RANDOM 196 mg/dL (70-110); POTASSIUM 3.5 mmol/L (3.5-5.1); SODIUM SERUM 141 mmol/L (136-145); TOTAL PROTEIN, SERUM 5.4 g/dL (6.4-8.2); UREA NITROGEN, BLOOD 7 mg/dL (7-18); VANCOMYCIN,RANDOM 15.3 mcg/mL (25.0-50.0)
[2019-06-14 07:19] LABS: GLOMERULAR FILTR. RATE CALC > 60 mL/min (>60)
[2019-06-14 07:32] LABS: BASOPHILS % (AUTO) 0.1 % (0.0-2.0); EOSINOPHILS % (AUTO) 0.7 % (1.0-6.0); HEMATOCRIT 31.7 % (41-53); HEMOGLOBIN 10.4 g/dL (13.5-17.5); LYMPHOCYTES # (AUTO) 0.8 K/uL (1.0-4.8); LYMPHOCYTES % (AUTO) 10.9 % (22.0-44.0); MEAN CORPUSCULAR HEMOGLOBIN 26.2 pg (26.0-34.0); MEAN CORPUSCULAR HGB CONC 32.7 G/dL (31.0-37.0); MEAN CORPUSCULAR VOLUME 80 fL (80-100); MONOCYTES # (AUTO) 0.6 K/uL (0.1-1.0); MONOCYTES % (AUTO) 8.6 % (2.0-9.0); NEUTROPHILS % (AUTO) 79.7 % (40.0-70.0); PLATELET COUNT (AUTO) 146 K/uL (150-450); RED BLOOD CELL COUNT(AUTO) 3.95 MIL/uL (4.50-5.90); RED CELL DISTRIBUTION WIDTH 21.4 % (11.5-14.5)
[2019-06-14 08:55] LABS: PLATELET MORPHOLOGY COMMENT GIANT PLTS PRESENT
[2019-06-14] MEDS: HEPARIN SODIUM,PORCINE 5,000 UNITS/ML VIAL SQ SCH ×2 (09:00→20:31)
[2019-06-14] MEDS: VANCOMYCIN HCL 750 MG in DEXTROSE 5%-WATER 250 ML IV SCH (09:28)
[2019-06-14] MEDS: DOCUSATE SODIUM 100 MG/10 ML LIQUID UDCUP GT SCH ×3 (09:36→20:31)
[2019-06-14] MEDS: FAMOTIDINE 20 MG TABLET GT SCH ×2 (09:37→20:31)
[2019-06-14] MEDS: METOPROLOL TARTRATE 25 MG TABLET GT SCH ×2 (09:37→20:32)
[2019-06-14] MEDS: CARBIDOPA/LEVODOPA 25-250 MG TABLET GT SCH ×4 (09:37→20:31)
[2019-06-14] MEDS: TERAZOSIN HCL 5 MG CAPSULE GT SCH (09:37)
[2019-06-14] MEDS: ROPINIRole HCL 0.25 MG TABLET GT SCH ×3 (09:38→20:31)
[2019-06-14] MEDS: CefoTEtan DISOD 2 GM/DEXTROSE 50 ML IV SCH ×2 (12:52→21:17)
[2019-06-14] MEDS: OMEPRAZOLE 20 MG CAPSULE GT SCH (13:08)
[2019-06-14 18:18] LABS: GLUCOMETER DEV NAME(LOC) 5S.2A; GLUCOSE,POINT OF CARE 233 MG/DL (70-110)
[2019-06-14] MEDS: QUEtiapine FUMARATE 25 MG TABLET GT SCH (20:31)
[2019-06-14] MEDS: ATORVASTATIN CALCIUM 20 MG TABLET GT SCH (20:31)
[2019-06-14 20:59] LABS: GLUCOMETER DEV NAME(LOC) 5N.2; GLUCOSE,POINT OF CARE 164 MG/DL (70-110)
[2019-06-14] MEDS: POTASSIUM CHLORIDE 10% 40 MEQ/30 ML LIQUID UDCUP PEG PRN (21:17)
[2019-06-15] MEDS: INSULIN LISPRO 100 UNITS/ML SQ PRN ×3 (00:21→19:01)
[2019-06-15 04:20] VITALS: BP 138/59
[2019-06-15 06:29] LABS: GLUCOMETER DEV NAME(LOC) 5S.2A; GLUCOSE,POINT OF CARE 162 MG/DL (70-110)
[2019-06-15 06:29] LABS: GLUCOMETER DEV NAME(LOC) 5S.2A; GLUCOSE,POINT OF CARE 149 MG/DL (70-110)
[2019-06-15 07:23] LABS: ALANINE AMINOTRANSFERASE 11 U/L (12-78); ALBUMIN 2.2 g/dL (3.4-5.0); ALKALINE PHOSPHATASE 74 U/L (46-116); ANION GAP 7 mmol/L (8-16); ASPARTATE AMINOTRANSFERASE 27 U/L (15-37); BILIRUBIN,TOTAL 0.5 mg/dL (0.1-1.0); CALCIUM, TOTAL 8.3 mg/dL (8.8-10.5); CARBON DIOXIDE 27 mmol/L (22-29); CHLORIDE 107 mmol/L (98-107); CREATININE 0.85 mg/dL (0.60-1.30); GLUCOSE,RANDOM 140 mg/dL (70-110); SODIUM SERUM 141 mmol/L (136-145); TOTAL PROTEIN, SERUM 5.8 g/dL (6.4-8.2); UREA NITROGEN, BLOOD 10 mg/dL (7-18)
[2019-06-15 07:24] LABS: GLOMERULAR FILTR. RATE CALC > 60 mL/min (>60)
[2019-06-15] MEDS: OMEPRAZOLE 20 MG CAPSULE GT SCH (08:05)
[2019-06-15] MEDS: ROPINIRole HCL 0.25 MG TABLET GT SCH ×3 (08:06→20:55)
[2019-06-15] MEDS: TERAZOSIN HCL 5 MG CAPSULE GT SCH (08:06)
[2019-06-15] MEDS: FAMOTIDINE 20 MG TABLET GT SCH ×2 (08:06→20:54)
[2019-06-15] MEDS: HEPARIN SODIUM,PORCINE 5,000 UNITS/ML VIAL SQ SCH ×2 (08:06→20:55)
[2019-06-15] MEDS: CARBIDOPA/LEVODOPA 25-250 MG TABLET GT SCH ×4 (08:06→20:55)
[2019-06-15 08:08] VITALS: BP 130/56
[2019-06-15] MEDS: DOCUSATE SODIUM 100 MG/10 ML LIQUID UDCUP GT SCH ×3 (08:08→20:55)
[2019-06-15] MEDS: METOPROLOL TARTRATE 25 MG TABLET GT SCH ×2 (08:08→20:55)
[2019-06-15 09:28] LABS: BASOPHILS % (AUTO) 0.5 % (0.0-2.0); EOSINOPHILS % (AUTO) 3.6 % (1.0-6.0); HEMATOCRIT 33.6 % (41-53); HEMOGLOBIN 10.9 g/dL (13.5-17.5); LYMPHOCYTES % (AUTO) 13.3 % (22.0-44.0); MEAN CORPUSCULAR HEMOGLOBIN 26.2 pg (26.0-34.0); MEAN CORPUSCULAR HGB CONC 32.5 G/dL (31.0-37.0); MEAN CORPUSCULAR VOLUME 81 fL (80-100); MONOCYTES # (AUTO) 0.7 K/uL (0.1-1.0); MONOCYTES % (AUTO) 8.6 % (2.0-9.0); NEUTROPHILS # (AUTO) 5.6 K/uL (1.8-7.7); PLATELET COUNT (AUTO) 164 K/uL (150-450); RED BLOOD CELL COUNT(AUTO) 4.17 MIL/uL (4.50-5.90); RED CELL DISTRIBUTION WIDTH 21.4 % (11.5-14.5)
[2019-06-15] MEDS: CefoTEtan DISOD 2 GM/DEXTROSE 50 ML IV SCH ×2 (10:22→22:37)
[2019-06-15] MEDS ORDERED: SODIUM CHLORIDE 0.9% 100 ML ONE (11:32)
[2019-06-15 11:46] VITALS: BP 136/76
[2019-06-15 16:04] VITALS: BP 132/79
[2019-06-15 19:49] VITALS: BP 128/62
[2019-06-15 20:43] LABS: GLUCOMETER DEV NAME(LOC) 5N.2; GLUCOSE,POINT OF CARE 202 MG/DL (70-110)
[2019-06-15 20:43] LABS: GLUCOMETER DEV NAME(LOC) 5N.2; GLUCOSE,POINT OF CARE 241 MG/DL (70-110)
[2019-06-15] MEDS: ATORVASTATIN CALCIUM 20 MG TABLET GT SCH (20:55)
[2019-06-15] MEDS: QUEtiapine FUMARATE 25 MG TABLET GT SCH (20:55)
[2019-06-16 00:27] VITALS: BP 115/58
[2019-06-16 05:20] VITALS: BP 147/91
[2019-06-16 06:53] LABS: ALANINE AMINOTRANSFERASE 10 U/L (12-78); ALBUMIN 1.9 g/dL (3.4-5.0); ALKALINE PHOSPHATASE 61 U/L (46-116); ANION GAP 7 mmol/L (8-16); ASPARTATE AMINOTRANSFERASE 16 U/L (15-37); BILIRUBIN,TOTAL 0.4 mg/dL (0.1-1.0); CALCIUM, TOTAL 8.1 mg/dL (8.8-10.5); CARBON DIOXIDE 28 mmol/L (22-29); CHLORIDE 106 mmol/L (98-107); CREATININE 0.78 mg/dL (0.60-1.30); GLUCOSE,RANDOM 183 mg/dL (70-110); POTASSIUM 3.8 mmol/L (3.5-5.1); SODIUM SERUM 141 mmol/L (136-145); TOTAL PROTEIN, SERUM 5.3 g/dL (6.4-8.2); UREA NITROGEN, BLOOD 12 mg/dL (7-18)
[2019-06-16 07:03] LABS: GLOMERULAR FILTR. RATE CALC > 60 mL/min (>60)
[2019-06-16 07:31] LABS: BASOPHILS % (AUTO) 0.4 % (0.0-2.0); EOSINOPHILS % (AUTO) 4.3 % (1.0-6.0); HEMATOCRIT 32.4 % (41-53); HEMOGLOBIN 10.5 g/dL (13.5-17.5); LYMPHOCYTES % (AUTO) 12.5 % (22.0-44.0); MEAN CORPUSCULAR HEMOGLOBIN 26.4 pg (26.0-34.0); MEAN CORPUSCULAR HGB CONC 32.5 G/dL (31.0-37.0); MEAN CORPUSCULAR VOLUME 81 fL (80-100); MONOCYTES # (AUTO) 0.7 K/uL (0.1-1.0); MONOCYTES % (AUTO) 9.3 % (2.0-9.0); NEUTROPHILS # (AUTO) 5.8 K/uL (1.8-7.7); NEUTROPHILS % (AUTO) 73.5 % (40.0-70.0); PLATELET COUNT (AUTO) 166 K/uL (150-450); RED BLOOD CELL COUNT(AUTO) 3.99 MIL/uL (4.50-5.90); RED CELL DISTRIBUTION WIDTH 20.5 % (11.5-14.5)
[2019-06-16] MEDS: DOCUSATE SODIUM 100 MG/10 ML LIQUID UDCUP GT SCH ×3 (09:00→21:00)
[2019-06-16] MEDS: OMEPRAZOLE 20 MG CAPSULE GT SCH (09:06)
[2019-06-16] MEDS: HEPARIN SODIUM,PORCINE 5,000 UNITS/ML VIAL SQ SCH ×2 (09:06→20:41)
[2019-06-16] MEDS: FAMOTIDINE 20 MG TABLET GT SCH ×2 (09:06→20:38)
[2019-06-16] MEDS: CARBIDOPA/LEVODOPA 25-250 MG TABLET GT SCH ×4 (09:06→20:38)
[2019-06-16] MEDS: ROPINIRole HCL 0.25 MG TABLET GT SCH ×3 (09:06→20:38)
[2019-06-16] MEDS: TERAZOSIN HCL 5 MG CAPSULE GT SCH (09:07)
[2019-06-16] MEDS: METOPROLOL TARTRATE 25 MG TABLET GT SCH ×2 (09:07→20:39)
[2019-06-16] MEDS: CefoTEtan DISOD 2 GM/DEXTROSE 50 ML IV SCH ×2 (10:39→21:03)
[2019-06-16 15:37] VITALS: BP 128/79
[2019-06-16 19:38] VITALS: BP 120/54
[2019-06-16] MEDS: ATORVASTATIN CALCIUM 20 MG TABLET GT SCH (20:38)
[2019-06-16] MEDS: QUEtiapine FUMARATE 25 MG TABLET GT SCH (20:38)
[2019-06-16 20:54] LABS: GLUCOMETER DEV NAME(LOC) 5N.2; GLUCOSE,POINT OF CARE 176 MG/DL (70-110)
[2019-06-16 20:54] LABS: GLUCOMETER DEV NAME(LOC) 5S.2A; GLUCOSE,POINT OF CARE 176 MG/DL (70-110)
[2019-06-16 20:55] LABS: GLUCOMETER DEV NAME(LOC) 5N.2; GLUCOSE,POINT OF CARE 156 MG/DL (70-110)
[2019-06-16 20:55] LABS: GLUCOMETER DEV NAME(LOC) 5N.2; GLUCOSE,POINT OF CARE 207 MG/DL (70-110)
[2019-06-17 00:12] VITALS: BP 132/57
[2019-06-17] MEDS: INSULIN LISPRO 100 UNITS/ML SQ PRN ×4 (00:17→18:36)
[2019-06-17 01:06] LABS: GLUCOMETER DEV NAME(LOC) 5N.2; GLUCOSE,POINT OF CARE 195 MG/DL (70-110)
[2019-06-17 04:56] VITALS: BP 135/76
[2019-06-17 06:24] LABS: BASOPHILS % (AUTO) 0.4 % (0.0-2.0); EOSINOPHILS % (AUTO) 3.8 % (1.0-6.0); HEMATOCRIT 33.7 % (41-53); HEMOGLOBIN 10.9 g/dL (13.5-17.5); LYMPHOCYTES # (AUTO) 0.6 K/uL (1.0-4.8); LYMPHOCYTES % (AUTO) 7.7 % (22.0-44.0); MEAN CORPUSCULAR HEMOGLOBIN 26.1 pg (26.0-34.0); MEAN CORPUSCULAR HGB CONC 32.3 G/dL (31.0-37.0); MEAN CORPUSCULAR VOLUME 81 fL (80-100); MONOCYTES # (AUTO) 0.6 K/uL (0.1-1.0); MONOCYTES % (AUTO) 8.1 % (2.0-9.0); NEUTROPHILS # (AUTO) 6.4 K/uL (1.8-7.7); PLATELET COUNT (AUTO) 186 K/uL (150-450); RED BLOOD CELL COUNT(AUTO) 4.16 MIL/uL (4.50-5.90); RED CELL DISTRIBUTION WIDTH 20.6 % (11.5-14.5)
[2019-06-17 06:41] LABS: ALANINE AMINOTRANSFERASE 10 U/L (12-78); ALBUMIN 2.1 g/dL (3.4-5.0); ALKALINE PHOSPHATASE 72 U/L (46-116); ANION GAP 4 mmol/L (8-16); ASPARTATE AMINOTRANSFERASE 18 U/L (15-37); BILIRUBIN,TOTAL 0.3 mg/dL (0.1-1.0); CALCIUM, TOTAL 8.2 mg/dL (8.8-10.5); CARBON DIOXIDE 31 mmol/L (22-29); CHLORIDE 105 mmol/L (98-107); CREATININE 0.99 mg/dL (0.60-1.30); GLUCOSE,RANDOM 199 mg/dL (70-110); SODIUM SERUM 140 mmol/L (136-145); UREA NITROGEN, BLOOD 13 mg/dL (7-18)
[2019-06-17 06:42] LABS: GLOMERULAR FILTR. RATE CALC > 60 mL/min (>60)
[2019-06-17 08:31] VITALS: BP 164/70
[2019-06-17] MEDS: DOCUSATE SODIUM 100 MG/10 ML LIQUID UDCUP GT SCH ×2 (09:00→16:00)
[2019-06-17] MEDS: OMEPRAZOLE 20 MG CAPSULE GT SCH (10:04)
[2019-06-17] MEDS: CARBIDOPA/LEVODOPA 25-250 MG TABLET GT SCH ×3 (10:04→17:42)
[2019-06-17] MEDS: TERAZOSIN HCL 5 MG CAPSULE GT SCH (10:05)
[2019-06-17] MEDS: ROPINIRole HCL 0.25 MG TABLET GT SCH ×2 (10:05→17:46)
[2019-06-17] MEDS: FAMOTIDINE 20 MG TABLET GT SCH (10:05)
[2019-06-17] MEDS: METOPROLOL TARTRATE 25 MG TABLET GT SCH (10:09)
[2019-06-17] MEDS: HEPARIN SODIUM,PORCINE 5,000 UNITS/ML VIAL SQ SCH (10:13)
[2019-06-17 11:12] VITALS: BP 169/81
[2019-06-17] MEDS: CefoTEtan DISOD 2 GM/DEXTROSE 50 ML IV SCH (11:55)
[2019-06-17 13:29] LABS: GLUCOMETER DEV NAME(LOC) 5N.2; GLUCOSE,POINT OF CARE 197 MG/DL (70-110)
[2019-06-17 13:29] LABS: GLUCOMETER DEV NAME(LOC) 5N.2; GLUCOSE,POINT OF CARE 221 MG/DL (70-110)
[2019-06-17] MEDS: ACETYLCYSTEINE 10% 100 MG/ML 4 ML NEB SOLUTION NEB SCH ×2 (14:33→16:00)
[2019-06-17 15:36] VITALS: BP 139/69
[2019-06-17] MEDS ORDERED: BISA10SU11 PR (17:41)
[2019-06-17] MEDS ORDERED: MAGNESIUM SULFATE 1 GM in DEXTROSE 5%-WATER 50 ML IV ONE (17:45)
[2019-06-17] MEDS ORDERED: SODIUM CHLORIDE 0.9% 50 ML ONE (18:13)
[2019-06-17 20:01] VITALS: BP 133/77
[2019-06-17] MEDS ORDERED: TERA5CAP4 GT (22:21)
[2019-06-17] MEDS ORDERED: FERSL GT (22:23)
[2019-06-17] MEDS ORDERED: HYDR1SOL TP (22:26)
[2019-06-18 06:57] LABS: GLUCOMETER DEV NAME(LOC) 5N.2; GLUCOSE,POINT OF CARE 236 MG/DL (70-110)
== END 2019-06-17 20:28 | DRG 919 ==
LOC: EDUNIT# 11:11 → EMS 11:16 → 5S 14:55
PROVIDERS: ADMIT Internal Medicine; ATTEND Internal Medicine
PROC: 0DD68ZX Extraction of Stomach, Via Natural or Artificial Opening Endoscopic, Diagnostic (ICD-10-PCS; principal; 2019-06-11 16:30)
PROC: 30233N1 Transfusion of Nonautologous Red Blood Cells into Peripheral Vein, Percutaneous Approach (ICD-10-PCS; 2019-06-12)
DX: T85.79XA Infection and inflammatory reaction due to other internal prosthetic devices, implants and grafts, initial encounter (principal); K29.71 Gastritis, unspecified, with bleeding; E43 Unspecified severe protein-calorie malnutrition; E87.2 Acidosis; E11.65 Type 2 diabetes mellitus with hyperglycemia; K20.9 Esophagitis, unspecified; K29.70 Gastritis, unspecified, without bleeding; M19.90 Unspecified osteoarthritis, unspecified site; K44.9 Diaphragmatic hernia without obstruction or gangrene; K59.09 Other constipation; K21.9 Gastro-esophageal reflux disease without esophagitis; E11.9 Type 2 diabetes mellitus without complications; G20 Parkinson's disease; Y83.8 Other surgical procedures as the cause of abnormal reaction of the patient, or of later complication, without mention of misadventure at the time of the procedure; B96.1 Klebsiella pneumoniae [K. pneumoniae] as the cause of diseases classified elsewhere; E11.40 Type 2 diabetes mellitus with diabetic neuropathy, unspecified; E78.5 Hyperlipidemia, unspecified; F02.80 Dementia in other diseases classified elsewhere, unspecified severity, without behavioral disturbance, psychotic disturbance, mood disturbance, and anxiety; G30.9 Alzheimer's disease, unspecified; J44.9 Chronic obstructive pulmonary disease, unspecified; N40.0 Benign prostatic hyperplasia without lower urinary tract symptoms; I10 Essential (primary) hypertension; Y92.89 Other specified places as the place of occurrence of the external cause; Z88.8 Allergy status to other drugs, medicaments and biological substances; Z74.01 Bed confinement status; Z86.73 Personal history of transient ischemic attack (TIA), and cerebral infarction without residual deficits; Z79.4 Long term (current) use of insulin; Z85.46 Personal history of malignant neoplasm of prostate; Z86.718 Personal history of other venous thrombosis and embolism; Z87.19 Personal history of other diseases of the digestive system; Z93.1 Gastrostomy status; Z68.24 Body mass index [BMI] 24.0-24.9, adult
CPT/HCPCS: 36600; 74018; 76999; 82271; 82805; 83036; 83540; 83550; 83605; 83735; 84132; 84443; 85045; 86850; 86900; 86901; 86920; 87040; 87070; 87081; 87205; 88305; 88312; 88313; 93005; 93308; 93970; 94640; 99291; C9113; J1644; J2543; J2704; J3370; J3475; J3490; J7030; J7040; J7050; J7060; P9016